=== PATIENT | male | born 1940 | race Caucasian/White ===

== ENCOUNTER 2017-06-07 21:16 | Inpatient (IN) | payer MEDICARE, OTHER ==
[~2017-06-07] VITALS: Ht 175.3 cm; Wt 81.8 kg
--- NOTE | 2017-06-07 21:33 | PHYS DOC ---
Past History Past Medical History: CAD, Cancer, Dementia, GERD, Hypertension, Seizure, Vascular Disease, Other Past Surgical History: Pacemaker Smoking: Non-smoker Alcohol Use: None Drug Use: None Adult General Chief Complaint Chief Complaint: expressed suicidal ideation and homicidal ideation HPI HPI Patient is a pleasant 76-year-old male coming to our facility for senior behavioral health psychiatric evaluation. Apparently sometime earlier today he called the son stating he wanted to kill himself and everyone on the unit. He had a plan at that time some was very concerned is going to kill everyone with a knife. The symptoms began to become acutely worse last night. Patient has history dementia, bipolar disorder, epilepsy, history of sleep apnea, hypertension, heart disease, pacemaker placement, peripheral vascular disease, reflux, constipation, history of bladder cancer with reconstruction, who is presently on Seroquel and Depakote. Patient denies any complains of chest pain, abdominal pain, headache, hearing voices, hearing visual auditory hallucinations , changes in medications, or other symptoms. Patient is resting quietly answer questions without issue. Review of Systems Review of Systems Constitutional: Denies fever or chills [] Eyes: Denies change in visual acuity, redness, or eye pain [] HENT: Denies nasal congestion or sore throat [] Respiratory: Denies cough or shortness of breath [] Cardiovascular: No additional information not addressed in HPI [] GI: Denies abdominal pain, nausea, vomiting, bloody stools or diarrhea [] : Denies dysuria or hematuria [] Musculoskeletal: Denies back pain or joint pain [] Integument: Denies rash or skin lesions [] Neurologic: Denies headache, focal weakness or sensory changes [] Endocrine: Denies polyuria or polydipsia [] Physical Exam Physical Exam Constitutional: Well developed, well nourished, no acute distress, non-toxic appearance. [] HENT: Normocephalic, atraumatic, bilateral external ears normal, dry mucous membranes, no oral exudates, nose normal. [] Eyes: PERRLA, EOMI, conjunctiva normal, no discharge. Noted arcus senilis [] Neck: Normal range of motion, no tenderness, supple, no stridor. [] Cardiovascular:Heart rate regular rhythm, no murmur [] Lungs & Thorax: Bilateral breath sounds clear to auscultation [] Abdomen: Bowel sounds normal, soft, no tenderness, no masses, no pulsatile masses. [] Skin: Warm, dry, no erythema, no rash. [] Back: No tenderness, no CVA tenderness. [] Extremities: No tenderness, no cyanosis, no clubbing, ROM intact, no edema. [] Neurologic: Alert and oriented X 3, normal motor function, normal sensory function, no focal deficits noted. [] Psychologic patient is very compliant with questions, will follow instructions without issue denies any auditory or visual hallucinations. Current Patient Data Lab Results Laboratory Tests Test 06/07/17 21:33 06/07/17 21:53 Urine Collection Type Unknown Urine Color Yellow Urine Clarity Cloudy Urine pH 7.0 Urine Specific Martha 1.010 Urine Protein Neg (NEG-TRACE) Urine Glucose (UA) Neg mg/dL (NEG) Urine Ketones (Stick) Neg mg/dL (NEG) Urine Blood Small (NEG) Urine Nitrite Neg (NEG) Urine Bilirubin Neg (NEG) Urine Urobilinogen Dipstick 0.2 mg/dL (0.2 mg/dL) Urine Leukocyte Esterase Large (NEG) Urine RBC 3-5 /HPF (0-2) Urine WBC >40 /HPF (0-4) Urine Squamous Epithelial Cells None /LPF Urine Bacteria 0 /HPF (0-FEW) White Blood Count 8.8 x10^3/uL (4.0-11.0) Red Blood Count 4.62 x10^6/uL (4.30-5.70) Hemoglobin 15.3 g/dL (13.0-17.5) Hematocrit 44.5 % (39.0-53.0) Mean Corpuscular Volume 96 fL (79-100) Mean Corpuscular Hemoglobin 33 pg (25-35) Mean Corpuscular Hemoglobin Concent 34 g/dL (31-37) Red Cell Distribution Width 14.2 % (11.5-14.5) Platelet Count 79 x10^3/uL (140-400) L Neutrophils (%) (Auto) 62 % (31-73) Lymphocytes (%) (Auto) 26 % (24-48) Monocytes (%) (Auto) 9 % (0-9) Eosinophils (%) (Auto) 3 % (0-3) Basophils (%) (Auto) 1 % (0-3) Neutrophils # (Auto) 5.4 x10^3uL (1.8-7.7) Lymphocytes # (Auto) 2.3 x10^3/uL (1.0-4.8) Monocytes # (Auto) 0.8 x10^3/uL (0.0-1.1) Eosinophils # (Auto) 0.3 x10^3/uL (0.0-0.7) Basophils # (Auto) 0.0 x10^3/uL (0.0-0.2) Sodium Level 139 mmol/L (136-145) Potassium Level 4.9 mmol/L (3.5-5.1) Chloride Level 109 mmol/L (98-107) H Carbon Dioxide Level 18 mmol/L (21-32) L Anion Gap 12 (6-14) Blood Urea Nitrogen 22 mg/dL (8-26) Creatinine 1.3 mg/dL (0.7-1.3) Estimated GFR (Cockcroft-Gault) 53.8 BUN/Creatinine Ratio 17 (6-20) Glucose Level 79 mg/dL (70-99) Calcium Level 8.6 mg/dL (8.5-10.1) Magnesium Level 1.7 mg/dL (1.8-2.4) L Total Bilirubin 0.5 mg/dL (0.2-1.0) Aspartate Amino Transferase (AST) 18 U/L (15-37) Alanine Aminotransferase (ALT) 19 U/L (16-63) Alkaline Phosphatase 34 U/L (46-116) L Troponin I Quantitative < 0.017 ng/mL (0-0.055) Total Protein 6.4 g/dL (6.4-8.2) Albumin 3.5 g/dL (3.4-5.0) Albumin/Globulin Ratio 1.2 (1.0-1.7) EKG EKG []Patient's EKG timed 9:29 PM read by me demonstrate a heart rate of 67 which is normal sinus rhythm patient is a irritable 138 which is normal patient's QRS width is 74 which is normal patient's QTc is 447 which is normal patient has an occasional PVC there is some T-wave inversions in the lateral leads but no ST segment changes consistent with acute cardiac ischemia. Radiology/Procedures Radiology/Procedures [] Course & Med Decision Making Course & Med Decision Making Pertinent Labs and Imaging studies reviewed. (See chart for details) as patient presents for a Screening for geriatric psychiatry. He has had no complaints, no outbursts of emotion or activity that been deemed competent to himself or anybody else. The stated complaint early was very concerning no ill be admitted to the hospital. It was noted the patient has urinalysis that demonstrates white blood cells, leuk esterase and bacteria consistent with UTI. He is receiving. Treatment with ciprofloxacin here in the emergency department. He does not demonstrate any signs of ischemia on EKG he has a negative troponin is resting quietly comfortable. He is been admitted to psychiatric service[] Dragon Disclaimer Dragon Disclaimer This chart was dictated in whole or in part using Voice Recognition software in a busy, high-work load, and often noisy Emergency Department environment. It may contain unintended and wholly unrecognized errors or omissions. Departure Departure: Impression: Primary Impression: Acute adjustment disorder Additional Impressions: UTI (urinary tract infection) Suicidal ideation Disposition: ADMITTED INPATIENT Condition: GUARDED Problem Qualifiers CHRIS ELLIS MD Jun 07, 2017 21:33
--- NOTE | 2017-06-07 21:34 | EKG ---
[address] [address] Test Date: 2017-06-07 Test Time: 21:29:30 Pat Name: CHRIS KOWALSKI Department: Room: Gender: M Pulp Screen Operator: NOREEN : 1940 Requested By: CHRIS ELLIS Order Number: [id number] Reading MD: Pancho Zepeda Measurements Intervals [place] Rate: 67 P: 43 NV: 138 QRS: 26 QRSD: 74 T: 137 QT: 420 QTc: 447 Interpretive Statements SINUS ARRHYTHMIA VENTRICULAR PREMATURE COMPLEX(ES) NON-SPECIFIC ST/T CHANGES Electronically Signed On 06-10-2017 13:10:55 CDT by Pancho Zepeda
[2017-06-07 22:29] LABS: BASO % 1 % (0-3); EOS # 0.3 x10^3/uL (0.0-0.7); EOS % 3 % (0-3); HEMATOCRIT 44.5 % (39.0-53.0); HEMOGLOBIN 15.3 g/dL (13.0-17.5); LYMPH # 2.3 x10^3/uL (1.0-4.8); LYMPH % 26 % (24-48); MEAN CORPUSCULAR HEMOGLOBIN 33 pg (25-35); MEAN CORPUSCULAR HGB CONC 34 g/dL (31-37); MEAN CORPUSCULAR VOLUME 96 fL (79-100); MONO # 0.8 x10^3/uL (0.0-1.1); MONO % 9 % (0-9); NEUT # 5.4 x10^3uL (1.8-7.7); NEUT % 62 % (31-73); PLATELET COUNT 79 x10^3/uL (140-400); RED BLOOD COUNT 4.62 x10^6/uL (4.30-5.70); RED CELL DISTRIBUTION WIDTH 14.2 % (11.5-14.5); WHITE BLOOD COUNT 8.8 x10^3/uL (4.0-11.0)
[2017-06-07 22:35] LABS: ALBUMIN 3.5 g/dL (3.4-5.0); ALBUMIN/GLOBULIN RATIO 1.2 (1.0-1.7); CALCIUM 8.6 mg/dL (8.5-10.1); CREATININE 1.3 mg/dL (0.7-1.3); GFR 53.8; MAGNESIUM 1.7 mg/dL (1.8-2.4); POTASSIUM 4.9 mmol/L (3.5-5.1); TOTAL BILIRUBIN 0.5 mg/dL (0.2-1.0); TOTAL PROTEIN 6.4 g/dL (6.4-8.2)
[2017-06-07 22:44] LABS: BILIRUBIN,URINE NEG (NEG); CLARITY,URINE CLOUDY; COLOR,URINE YELLOW; GLUCOSE,URINE NEG (NEG); NITRITE,URINE NEG (NEG); UROBILINOGEN,URINE 0.2 mg/dL (0.2 mg/dL)
[2017-06-07 22:45] LABS: BACTERIA,URINE 0 /HPF (0-FEW); WBC,URINE >40 /HPF (0-4)
[2017-06-07] MEDS ORDERED: CIPROFLOXACIN HCL 500 MG TABLET PO ONE (23:30)
[2017-06-08] MEDS ORDERED: CARV3.12 PO (00:04)
[2017-06-08] MEDS ORDERED: QUET25TA5 PO (00:04)
[2017-06-08] MEDS ORDERED: METF10002 PO (00:04)
[2017-06-08] MEDS ORDERED: QUET50TA5 PO (00:04)
[2017-06-08] MEDS ORDERED: FAMO20TA5 PO (00:04)
[2017-06-08] MEDS ORDERED: DIVA500T4 PO (00:04)
[2017-06-08] MEDS ORDERED: FOLI1TAB16 PO (00:04)
[2017-06-08] MEDS ORDERED: LISI2.5T PO (00:04)
[2017-06-08] MEDS ORDERED: ATOR20TA58 PO (00:04)
[2017-06-08] MEDS ORDERED: GLIP5TAB10 PO (00:04)
[2017-06-08] MEDS ORDERED: ACET500T68 PO (00:04)
[2017-06-08] MEDS ORDERED: ASPI81TA50 PO (00:04)
[2017-06-08] MEDS ORDERED: CLOP75TA57 PO (00:04)
[2017-06-08] MEDS ORDERED: Influenza vaccine per PROTOCOL. MC ONE (00:15)
[2017-06-08] MEDS ORDERED: MAG HYDROX/AL HYDROX/SIMETH 30 ML ORAL.SUSP PO PRN (00:15)
[2017-06-08] MEDS ORDERED: MAGNESIUM HYDROXIDE 2,400 MG/30 ML ORAL.SUSP. PO PRN (00:15)
[2017-06-08] MEDS ORDERED: FAMOTIDINE 20 MG TABLET PO PRN (00:15)
[2017-06-08] MEDS ORDERED: METHYL SALICYLATE/MENTHOL TOPICAL OINTMENT 29GM TUBE. TP PRN (00:15)
[2017-06-08] MEDS ORDERED: ACETAMINOPHEN 325 MG TABLET PO PRN (00:15)
[2017-06-08 02:00] VITALS: BP 128/75
[2017-06-08 04:10] LABS: VAL ACID 67 mcg/mL (50-100)
[2017-06-08 06:03] VITALS: BP 93/56
[2017-06-08] MEDS: CARVEDILOL 3.125 MG TABLET PO SCH ×2 (08:00→17:38)
[2017-06-08] MEDS: LISINOPRIL 2.5 MG TABLET PO SCH (08:56)
[2017-06-08] MEDS: QUEtiapine 25 MG TABLET. PO SCH (08:56)
[2017-06-08] MEDS: ASPIRIN ENTERIC COATED 81 MG TABLET.DR. PO SCH (08:56)
[2017-06-08] MEDS: glipiZIDE 5 MG TABLET PO SCH (08:56)
[2017-06-08] MEDS: ACETAMINOPHEN 500 MG TABLET PO SCH ×3 (08:56→20:16)
[2017-06-08] MEDS: CLOPIDOGREL BISULFATE 75 MG TABLET PO SCH (08:56)
[2017-06-08] MEDS: metFORMIN 500 MG TABLET PO SCH ×2 (08:57→17:37)
[2017-06-08] MEDS: DIVALPROEX ER 500 MG TAB.ER.24H PO SCH (08:57)
[2017-06-08] MEDS: FOLIC ACID 1 MG TABLET PO SCH (08:58)
[2017-06-08] MEDS ORDERED: FLU VACC QS2017-18 (36MOS+)/PF 0.5 ML SYRINGE. VAX IM ONE (09:00)
[2017-06-08 11:37] LABS: THYROID STIM HORMONE (TSH) 2.804 uIU/mL (0.358-3.740)
[2017-06-08 13:09] LABS: T3 TOTAL 67 ng/dL (71-180)
[2017-06-08 15:38] VITALS: BP 137/69
[2017-06-08] MEDS: QUEtiapine 50 MG TABLET. PO SCH (20:19)
[2017-06-08] MEDS: ATORVASTATIN CALCIUM 20 MG TABLET PO SCH (20:19)
[2017-06-08] MEDS: CLOTRIMAZOLE 1% TOPICAL CREAM 30GM TUBE. TP SCH ×2 (20:21→20:26)
--- NOTE | 2017-06-08 22:18 | PDOC ---
Exam Jame Demential Exam: Jame Note: Please also refer to the separate dictated note~for this date of service dictated separately.~Patient seen individually. Discussed the patient with Nursing staff reviewed the chart.~Reviewed interim history and current functioning. Reviewed vital signs,~Labs/ Radiology~and current medications noted below. Continue current treatment with the changes noted in the dictated addendum note Assessment: Vital Signs: Vital Signs Date Time Temp Pulse Resp B/P (MAP) Pulse Ox O2 Delivery O2 Flow Rate FiO2 06/08/17 17:38 64 137/69 06/08/17 15:38 97.2 16 92 06/07/17 23:18 Room Air I&O Intake and Output 06/09/17 07:00 Intake Total 1200 ml Balance 1200 ml Intake Oral 1200 ml Labs: Laboratory Tests Test 06/08/17 03:00 Triglycerides Level 229 mg/dL (0-150) H Cholesterol Level 97 mg/dL (0-200) LDL Cholesterol, Calculated 24 mg/dL (0-100) VLDL Cholesterol, Calculated 45 mg/dL (0-40) H Non-HDL Cholesterol Calculated 69 mg/dL (0-129) HDL Cholesterol 28 mg/dL (40-60) L Cholesterol/HDL Ratio 3.0 Thyroid Stimulating Hormone (TSH) 2.804 uIU/mL (0.358-3.740) Thyroxine (T4) 4.0 ug/dL (4.5-12.0) L Total Triiodothyronine (TT3) 67 ng/dL (71-180) L Valproic Acid Level 67 mcg/mL (50-100) Valproic Acid Last Dose Date 06/07/17 Valproic Acid Last Dose Time 0900 RPR Titer Additional Testing Pending Current Medications: Meds: Current Medications Ciprofloxacin (Cipro) 500 mg 1X ONCE PO Last administered on 06/07/17t 23:22; Start 06/07/17 at 23:30; Stop 06/07/17 at 23:31; Status DC Info (FLU VACCINE per PROTOCOL) 1 ea 1X ONCE MC ; Start 06/08/17 at 00:15; Stop 06/08/17 at 00:16; Status UNV Acetaminophen (Tylenol) 650 mg PRN Q6HRS PRN PO PAIN / TEMP; Start 06/08/17 at 00:15 Multi-Ingredient Ointment (Analgesic [place]) 1 angelika PRN QID PRN TP MUSCLE PAIN; Start 06/08/17 at 00:15 Al Hydroxide/Mg Hydroxide (Mylanta Plus Xs) 15 ml PRN AFTMEALHC PRN PO DYSPEPSIA; Start 06/08/17 at 00:15 Magnesium Hydroxide (Milk Of Magnesia) 2,400 mg PRN QHS PRN PO CONSTIPATION; Start 06/08/17 at 00:15 Divalproex Sodium (Depakote Er) 1,500 mg DAILY PO Last administered on 08:57; Start 06/08/17 at 09:00 Quetiapine Fumarate (SEROquel) 25 mg DAILY PO Last administered on 06/08/17 08 :56; Start 06/08/17 at 09:00 Quetiapine Fumarate (SEROquel) 50 mg QHS PO Last administered on 06/08/17 20: 19; Start 06/08/17 at 21:00 Acetaminophen (Tylenol) 500 mg TID PO Last administered on 06/08/17 20:16; Start 06/08/17 at 09:00 Aspirin (Aspirin Enteric Coated) 81 mg DAILY PO Last administered on 06/08/17 08:56; Start 06/08/17 at 09:00 Atorvastatin Calcium (Lipitor) 20 mg QHS PO Last administered on 06/08/17 20: 19; Start 06/08/17 at 21:00 Carvedilol (Coreg) 3.125 mg BIDWMEALS PO Last administered on 06/08/17 17:38; Start 06/08/17 at 08:00 Clopidogrel Bisulfate (Plavix) 75 mg DAILY PO Last administered on 06/08/17 08 :56; Start 06/08/17 at 09:00 Famotidine (Pepcid) 20 mg PRN DAILY PRN PO GERD; Start 06/08/17 at 00:15 Folic Acid (Folic Acid) 1 mg DAILY PO Last administered on 06/08/17 08:58; Start 06/08/17 at 09:00 Glipizide (Glucotrol) 5 mg DAILYWBKFT PO Last administered on 06/08/17 08:56; Start 06/08/17 at 08:00 Lisinopril (Prinivil) 2.5 mg DAILY PO ; Start 06/08/17 at 09:00 Metformin HCl (Glucophage) 1,000 mg BIDWMEALS PO Last administered on 17:37; Start 06/08/17 at 08:00 Influenza Virus Vaccine Quadrival (Fluarix Quad 0972-1460 Syringe) 0.5 ml ONCE ONCE VAX IM Last administered on 06/08/17 14:04; Start 06/08/17 at 09:00; Stop 06/08/17 at 09:01; Status DC Clotrimazole (Lotrimin) 1 angelika BID TP ; Start 06/08/17 at 21:00 Active Scripts Active Reported Famotidine 20 Mg Tablet 20 Mg PO PRN DAILY PRN Seroquel (Quetiapine Fumarate) 50 Mg Tablet 50 Mg PO QHS Atorvastatin Calcium 20 Mg Tablet 20 Mg PO QHS Depakote Er (Divalproex Sodium) 500 Mg Tab.er.24h 1,500 Mg PO DAILY Metformin Hcl 1,000 Mg Tablet 1,000 Mg PO BIDWMEALS Plavix (Clopidogrel Bisulfate) 75 Mg Tablet 75 Mg PO DAILY Seroquel (Quetiapine Fumarate) 25 Mg Tablet 25 Mg PO DAILY Lisinopril 2.5 Mg Tablet 2.5 Mg PO DAILY Glipizide 5 Mg Tablet 5 Mg PO DAILY Folic Acid 1 Mg Tablet 1 Mg PO DAILY Coreg (Carvedilol) 3.125 Mg Tablet 3.125 Mg PO BIDWMEALS Aspir-Low (Aspirin) 81 Mg Tablet.dr 81 Mg PO DAILY Acetaminophen 500 Mg Tablet 500 Mg PO TID Diagnosis: Problems: (1) Bipolar affective, mixed, sev w/ psych (2) Anxiety disorder (3) 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
--- NOTE | 2017-06-08 23:46 | HP ---
ADMIT DATE: 06/08/2017 PSYCHIATRIC ADMISSION HISTORY AND EVALUATION IDENTIFYING DATA: The patient is a 76-year-old male referred to us from [facility] by Dr. Maria G Kemp, his primary care physician, Dr. Encinas, psychiatrist. After the patient reportedly called his son and told him he wanted to kill himself and everyone on the unit. Reportedly, he had no plan. At the time son was concerned that the patient had made statements that he was going to kill everyone with a knife. The patient reportedly has a prior diagnosis of vascular dementia, bipolar disorder, seizure disorder and appeared increasingly psychotic, depressed, failed outpatient psychiatric interventions with Dr. Encinas resulting in this referral. CHIEF COMPLAINT: "I have been here 2 or 3 days. I am okay. No, I don't want to hurt myself or anyone." HISTORY OF PRESENT ILLNESS: The patient has a history of frontotemporal dementia and history of bipolar disorder. Additionally, he has a history of vascular dementia. Also, has a history of a TBI in 2010. Over the last couple of weeks, the patient has been increasingly erratic, irritable with mood lability, somewhat disinhibited depressed. He has had sleep and appetite changes, made the above vague tests to hurt himself and others, but no plans or intent or attempt. He does have a history of mood swings and worsening memory deficits. PAST PSYCHIATRIC HISTORY: As noted above. PAST MEDICAL HISTORY: History of TBI 2010, vascular dementia, pacemaker in place, but has not been functioning over the past 1 year according to the son. History of seizure disorder, hypertension, heart disease, history of CA bladder, bladder reconstruction from colon, PVD, GERD, chronic constipation, sleep apnea, but refuses CPAP. Diet is regular, takes his medications whole. Ambulates ad filiberto. UA was positive in the ER. Cipro was given. CODE STATUS: DNR. ALLERGIES: HYDROMORPHONE, CEPHALEXIN. CURRENT PSYCHOTROPICS: Depakote 1500 mg p.o. daily, Seroquel 25 mg a.m. and 50 mg p.m., Valproic acid level therapeutic at 67. FAMILY HISTORY: Noncontributory. SOCIAL HISTORY: No alcohol, drug abuse, physical, sexual or elder abuse history is noted. He is not known to be a perpetrator. Reaction to hospitalization, the patient is accepting of it. STRENGTHS: The patient has a supportive son and the patient is accepting of hospitalization. MENTAL STATUS EXAM: The patient was seen individually in his room the evening of 06/08/2017. He is oriented to himself and somewhat vaguely to situation. Speech has some latency, coherent. Abstraction fair, computation impaired, language function intact, attention span short. Mood and affect, somewhat anxious. Insight somewhat limited. Judgment intact to standard questioning. Attention span short. Language function intact. Memory is impaired. I have reviewed detailed information left with the patient's son about this history, family history. The patient is noted to be known for his humor and quirky personality, incredible creativity, big idea dreams. REACTION TO HOSPITALIZATION: The patient accepting of it. ASSETS: The patient has a vibrant personality and significant support from his son. Again he denied current active suicidal or homicidal ideation. IMPRESSION: Major neurocognitive disorder, frontotemporal type with depression, delusion, behavioral disturbance, anxiety disorder, unspecified; bipolar 1 disorder, mixed with psychotic features; impulse control disorder, unspecified. PLAN: Admit to the geropsychiatry unit at [facility]. Request Dr. Hinkle, Dr. Lou to follow the patient from a medical standpoint. I will see the patient daily individually. Continue the patient on his current dosage of Depakote, increase Seroquel from 25 mg a.m. and 50 mg p.m. to 25 mg a.m. and noon, 75 mg p.m. Consider adding an antidepressant but I will assess him over the next day or two and then decide. MAN oKko GARCIA MD DR: MARGIE/nikolay JOB#: [id number] / [id number]
[2017-06-09 05:38] VITALS: BP 157/78
[2017-06-09] MEDS: DIVALPROEX ER 500 MG TAB.ER.24H PO SCH (07:23)
[2017-06-09] MEDS: ASPIRIN ENTERIC COATED 81 MG TABLET.DR. PO SCH (07:23)
[2017-06-09] MEDS: ACETAMINOPHEN 500 MG TABLET PO SCH ×3 (07:23→20:30)
[2017-06-09] MEDS: glipiZIDE 5 MG TABLET PO SCH (07:23)
[2017-06-09] MEDS: CLOPIDOGREL BISULFATE 75 MG TABLET PO SCH (07:23)
[2017-06-09] MEDS: FOLIC ACID 1 MG TABLET PO SCH (07:23)
[2017-06-09] MEDS: LISINOPRIL 2.5 MG TABLET PO SCH (07:24)
[2017-06-09] MEDS: metFORMIN 500 MG TABLET PO SCH ×2 (07:24→17:58)
[2017-06-09] MEDS: QUEtiapine 25 MG TABLET. PO SCH (07:24)
[2017-06-09] MEDS: CARVEDILOL 3.125 MG TABLET PO SCH ×2 (07:24→17:58)
[2017-06-09] MEDS: CLOTRIMAZOLE 1% TOPICAL CREAM 30GM TUBE. TP SCH ×3 (07:25→21:00)
--- NOTE | 2017-06-09 08:03 | CONS ---
DATE OF CONSULTATION: 06/08/2017 REASON FOR CONSULTATION: Medical management. HISTORY OF PRESENT ILLNESS: The patient is a 76-year-old male patient, a resident at [facility], who was admitted to [facility] on account of wanting to kill himself and everyone on the unit has no plans at this time. Son was concerned as his father stated that he is going to kill everybody with a knife. The patient was admitted to this unit for inpatient psychiatric stabilization. He has a background dementia with bipolar disorder. When I saw him, he denied any complaint. PAST MEDICAL HISTORY: Significant for hypertension, hyperlipidemia, heart disease, permanent pacemaker placement, peripheral vascular disease, gastroesophageal reflux disease, chronic constipation, bladder cancer, status post cystectomy and bladder reconstruction. He is also known to have epilepsy. His pacemaker is not functioning for the last 20 years and apparently has a history of traumatic brain injury in 2010, with resultant frontotemporal damage. ALLERGIES: He is allergic to CEPHALEXIN and HYDROMORPHONE. MEDICATIONS: He is currently on the following medications: Acetaminophen 500 mg 3 times a day, aspirin 81 mg once a day, atorvastatin calcium 20 mg at bedtime, carvedilol 3.25 mg twice a day, Plavix 75 mg daily, Depakote 1500 mg p.o. daily, famotidine 20 mg daily, folic acid 1 mg once a day, glipizide 5 mg daily, lisinopril 2.5 mg once a day, metformin 1000 mg twice a day with meals, Seroquel 25 mg daily, Seroquel 50 mg at bedtime. REVIEW OF SYSTEMS: As per history of present illness. PHYSICAL EXAMINATION GENERAL: When I examined him, he was sitting on the edge of the bed comfortably in no apparent respiratory distress. He was pale, but no jaundiced, cyanosis, or thyromegaly. No jugular venous distension. No lower limb edema. VITAL SIGNS: His heart rate was 62, blood pressure was 93/56, temperature was 97.4, respiratory rate was 18, and oxygen saturation was 93% on room air. HEAD, EYES, EARS, NOSE, AND THROAT: Showed normocephalic, atraumatic. NECK: Supple. HEART: Showed normal first and second heart sounds with no gallop, rub or murmur. CHEST: Clear to auscultation. No crepitation or rhonchi. ABDOMEN: Distended, soft, and nontender. NEUROLOGIC: He was awake, alert, but confused. All his cranial nerves intact. EXTREMITIES: He moves all extremities without difficulty. He ambulates without assistance or assistive devices. He has marked bilateral venous stasis with markedly hyperpigmented skin on both legs. LABORATORY DATA: His lab work showed that his white cell count was 8800, hemoglobin 15, hematocrit 44, MCV 96, and platelet count of 79,000. His chemistry showed that his serum sodium was 139, potassium 4.9, chloride 109, bicarbonate 18, anion gap of 12, BUN 22, creatinine 1.3, estimated GFR was 54 mL per minute. His glucose was 79, calcium was 8.6, magnesium 1.7. His serum iron was 51, TIBC was 310. Percent saturation was 16. His total bilirubin, AST, ALT, alkaline phosphatase were normal. His total protein was 6.4, albumin 3.5. His serum triglycerides were 229, total cholesterol was 97, LDL cholesterol was 24, VLDL was 45, and HDL cholesterol was 28, the ratio was 3. His TSH was 2.8; however total T4 is 4 and total T3 was 67. His urinalysis basically was yellow, cloudy with a pH of 7, specific gravity of 1.010. The urine was negative for protein, glucose, and ketones. There was small amount of blood, negative nitrites, and there was large amount of leukocyte esterase, 3-5 rbc's, more than 40 wbc's, and no bacteria. His urine toxicology showed that his valproic acid was 67 mcg/mL, which is within therapeutic range and his RPR was still pending. IMPRESSION: In summary, this is a 76-year-old male patient, a resident at [facility] in [place], who was admitted with as he called his son stating that he wanted to kill himself and everyone on the unit. He said that he is going to kill everybody in the unit with a knife, although there is no clear plan at that time. All these in a background of dementia, bipolar disorder, has multiple medical problems including hypertension, hyperlipidemia, peripheral vascular disease, heart disease, gastroesophageal reflux disease, bladder cancer, obstructive sleep apnea, and epilepsy. His vital signs and all his lab work seems to be within range. All in all, he seemed to be medically stable. I will definitely continue with all his current medication. I will follow all his lab work that are still pending and make any necessary recommendation. Thank you, Dr. Guzman, for allowing me to participate in the care of this patient. MIRANDA LENNON MD DR: ADAN/nikolay JOB#: [id number] / [id number]
[2017-06-09 15:55] VITALS: BP 137/83
--- NOTE | 2017-06-09 19:41 | PDOC ---
Exam Jame Demential Exam: Jame Note: Please also refer to the separate dictated note~for this date of service dictated separately.~Patient seen individually. Discussed the patient with Nursing staff reviewed the chart.~Reviewed interim history and current functioning. Reviewed vital signs,~Labs/ Radiology~and current medications noted below. Continue current treatment with the changes noted in the dictated addendum note Assessment: Vital Signs: Vital Signs Date Time Temp Pulse Resp B/P (MAP) Pulse Ox O2 Delivery O2 Flow Rate FiO2 06/09/17 17:58 59 137/83 06/09/17 15:55 97.8 20 99 06/07/17 23:18 Room Air I&O Intake and Output 06/10/17 07:00 Intake Total 1020 ml Balance 1020 ml Intake Oral 1020 ml Current Medications: Meds: Current Medications Ciprofloxacin (Cipro) 500 mg 1X ONCE PO Last administered on 06/07/17 23:22; Start 06/07/17 at 23:30; Stop 06/07/17 at 23:31; Status DC Info (FLU VACCINE per PROTOCOL) 1 ea 1X ONCE MC ; Start 06/08/17 at 00:15; Stop 06/08/17 at 00:16; Status UNV Acetaminophen (Tylenol) 650 mg PRN Q6HRS PRN PO PAIN / TEMP; Start 06/08/17 at 00:15 Multi-Ingredient Ointment (Analgesic [place]) 1 angelika PRN QID PRN TP MUSCLE PAIN; Start 06/08/17 at 00:15 Al Hydroxide/Mg Hydroxide (Mylanta Plus Xs) 15 ml PRN AFTMEALHC PRN PO DYSPEPSIA; Start 06/08/17 at 00:15 Magnesium Hydroxide (Milk Of Magnesia) 2,400 mg PRN QHS PRN PO CONSTIPATION; Start 06/08/17 at 00:15 Divalproex Sodium (Depakote Er) 1,500 mg DAILY PO Last administered on 07:23; Start 06/08/17 at 09:00 Quetiapine Fumarate (SEROquel) 25 mg DAILY PO Last administered on 06/09/17 07 :24; Start 06/08/17 at 09:00 Quetiapine Fumarate (SEROquel) 50 mg QHS PO Last administered on 06/08/17 20: 19; Start 06/08/17 at 21:00 Acetaminophen (Tylenol) 500 mg TID PO Last administered on 06/09/17 13:34; Start 06/08/17 at 09:00 Aspirin (Aspirin Enteric Coated) 81 mg DAILY PO Last administered on 06/09/17 07:23; Start 06/08/17 at 09:00 Atorvastatin Calcium (Lipitor) 20 mg QHS PO Last administered on 06/08/17 20: 19; Start 06/08/17 at 21:00 Carvedilol (Coreg) 3.125 mg BIDWMEALS PO Last administered on 06/09/17 17:58; Start 06/08/17 at 08:00 Clopidogrel Bisulfate (Plavix) 75 mg DAILY PO Last administered on 06/09/17 07 :23; Start 06/08/17 at 09:00 Famotidine (Pepcid) 20 mg PRN DAILY PRN PO GERD; Start 06/08/17 at 00:15 Folic Acid (Folic Acid) 1 mg DAILY PO Last administered on 06/09/17 07:23; Start 06/08/17 at 09:00 Glipizide (Glucotrol) 5 mg DAILYWBKFT PO Last administered on 06/09/17 07:23; Start 06/08/17 at 08:00 Lisinopril (Prinivil) 2.5 mg DAILY PO Last administered on 06/09/17 07:24; Start 06/08/17 at 09:00 Metformin HCl (Glucophage) 1,000 mg BIDWMEALS PO Last administered on 17:58; Start 06/08/17 at 08:00 Influenza Virus Vaccine Quadrival (Fluarix Quad 0208-0816 Syringe) 0.5 ml ONCE ONCE VAX IM Last administered on 06/08/17 14:04; Start 06/08/17 at 09:00; Stop 06/08/17 at 09:01; Status DC Clotrimazole (Lotrimin) 1 angelika BID TP Last administered on 06/09/17 07:25; Start 06/08/17 at 21:00 Active Scripts Active Reported Famotidine 20 Mg Tablet 20 Mg PO PRN DAILY PRN Seroquel (Quetiapine Fumarate) 50 Mg Tablet 50 Mg PO QHS Atorvastatin Calcium 20 Mg Tablet 20 Mg PO QHS Depakote Er (Divalproex Sodium) 500 Mg Tab.er.24h 1,500 Mg PO DAILY Metformin Hcl 1,000 Mg Tablet 1,000 Mg PO BIDWMEALS Plavix (Clopidogrel Bisulfate) 75 Mg Tablet 75 Mg PO DAILY Seroquel (Quetiapine Fumarate) 25 Mg Tablet 25 Mg PO DAILY Lisinopril 2.5 Mg Tablet 2.5 Mg PO DAILY Glipizide 5 Mg Tablet 5 Mg PO DAILY Folic Acid 1 Mg Tablet 1 Mg PO DAILY Coreg (Carvedilol) 3.125 Mg Tablet 3.125 Mg PO BIDWMEALS Aspir-Low (Aspirin) 81 Mg Tablet.dr 81 Mg PO DAILY Acetaminophen 500 Mg Tablet 500 Mg PO TID Diagnosis: Problems: (1) Anxiety disorder (2) Impulse control disorder (3) Bipolar affective, mixed, sev w/ psych (4) Dementia, vascular, with depression (5) Dementia, vascular, 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
[2017-06-09] MEDS: ATORVASTATIN CALCIUM 20 MG TABLET PO SCH (20:30)
[2017-06-09] MEDS: QUEtiapine 50 MG TABLET. PO SCH (20:30)
[2017-06-10 06:10] VITALS: BP 123/83
[2017-06-10] MEDS: CARVEDILOL 3.125 MG TABLET PO SCH ×2 (07:40→16:20)
[2017-06-10] MEDS: FOLIC ACID 1 MG TABLET PO SCH (07:41)
[2017-06-10] MEDS: LISINOPRIL 2.5 MG TABLET PO SCH (07:41)
[2017-06-10] MEDS: glipiZIDE 5 MG TABLET PO SCH (07:41)
[2017-06-10] MEDS: metFORMIN 500 MG TABLET PO SCH ×2 (07:41→16:20)
[2017-06-10] MEDS: ASPIRIN ENTERIC COATED 81 MG TABLET.DR. PO SCH (07:41)
[2017-06-10] MEDS: DIVALPROEX ER 500 MG TAB.ER.24H PO SCH (07:41)
[2017-06-10] MEDS: CLOPIDOGREL BISULFATE 75 MG TABLET PO SCH (07:41)
[2017-06-10] MEDS: ACETAMINOPHEN 500 MG TABLET PO SCH ×3 (07:42→20:24)
[2017-06-10] MEDS: QUEtiapine 25 MG TABLET. PO SCH (07:42)
[2017-06-10] MEDS: CLOTRIMAZOLE 1% TOPICAL CREAM 30GM TUBE. TP SCH ×2 (09:00→20:27)
[2017-06-10 16:14] VITALS: BP 119/77
--- NOTE | 2017-06-10 19:41 | PDOC ---
Exam Jame Demential Exam: Jame Note: Please also refer to the separate dictated note~for this date of service dictated separately.~Patient seen individually. Discussed the patient with Nursing staff reviewed the chart.~Reviewed interim history and current functioning. Reviewed vital signs,~Labs/ Radiology~and current medications noted below. Continue current treatment with the changes noted in the dictated addendum note Assessment: Vital Signs: Vital Signs Date Time Temp Pulse Resp B/P (MAP) Pulse Ox O2 Delivery O2 Flow Rate FiO2 06/10/17 16:20 68 119/77 06/10/17 16:14 97.2 18 96 06/07/17 23:18 Room Air I&O Intake and Output 06/11/17 07:00 Intake Total 840 ml Balance 840 ml Intake Oral 840 ml Current Medications: Meds: Current Medications Ciprofloxacin (Cipro) 500 mg 1X ONCE PO Last administered on 06/07/17 23:22; Start 06/07/17 at 23:30; Stop 06/07/17 at 23:31; Status DC Info (FLU VACCINE per PROTOCOL) 1 ea 1X ONCE MC ; Start 06/08/17 at 00:15; Stop 06/08/17 at 00:16; Status UNV Acetaminophen (Tylenol) 650 mg PRN Q6HRS PRN PO PAIN / TEMP; Start 06/08/17 at 00:15 Multi-Ingredient Ointment (Analgesic [place]) 1 angelika PRN QID PRN TP MUSCLE PAIN; Start 06/08/17 at 00:15 Al Hydroxide/Mg Hydroxide (Mylanta Plus Xs) 15 ml PRN AFTMEALHC PRN PO DYSPEPSIA; Start 06/08/17 at 00:15 Magnesium Hydroxide (Milk Of Magnesia) 2,400 mg PRN QHS PRN PO CONSTIPATION; Start 06/08/17 at 00:15 Divalproex Sodium (Depakote Er) 1,500 mg DAILY PO Last administered on 07:41; Start 06/08/17 at 09:00 Quetiapine Fumarate (SEROquel) 25 mg DAILY PO Last administered on 06/10/17 07 :42; Start 06/08/17 at 09:00 Quetiapine Fumarate (SEROquel) 50 mg QHS PO Last administered on 06/09/17 20: 30; Start 06/08/17 at 21:00 Acetaminophen (Tylenol) 500 mg TID PO Last administered on 06/10/17 13:33; Start 06/08/17 at 09:00 Aspirin (Aspirin Enteric Coated) 81 mg DAILY PO Last administered on 06/10/17 07:41; Start 06/08/17 at 09:00 Atorvastatin Calcium (Lipitor) 20 mg QHS PO Last administered on 06/09/17 20: 30; Start 06/08/17 at 21:00 Carvedilol (Coreg) 3.125 mg BIDWMEALS PO Last administered on 06/10/17 16:20; Start 06/08/17 at 08:00 Clopidogrel Bisulfate (Plavix) 75 mg DAILY PO Last administered on 06/10/17 07 :41; Start 06/08/17 at 09:00 Famotidine (Pepcid) 20 mg PRN DAILY PRN PO GERD; Start 06/08/17 at 00:15 Folic Acid (Folic Acid) 1 mg DAILY PO Last administered on 06/10/17 07:41; Start 06/08/17 at 09:00 Glipizide (Glucotrol) 5 mg DAILYWBKFT PO Last administered on 06/10/17 07:41; Start 06/08/17 at 08:00 Lisinopril (Prinivil) 2.5 mg DAILY PO Last administered on 06/10/17 07:41; Start 06/08/17 at 09:00 Metformin HCl (Glucophage) 1,000 mg BIDWMEALS PO Last administered on 16:20; Start 06/08/17 at 08:00 Influenza Virus Vaccine Quadrival (Fluarix Quad 0335-6716 Syringe) 0.5 ml ONCE ONCE VAX IM Last administered on 06/08/17 14:04; Start 06/08/17 at 09:00; Stop 06/08/17 at 09:01; Status DC Clotrimazole (Lotrimin) 1 angelika BID TP Last administered on 06/09/17 07:25; Start 06/08/17 at 21:00 Escitalopram Oxalate (Lexapro) 5 mg DAILY PO ; Start 06/11/17 at 09:00 Mirtazapine (Remeron) 7.5 mg QHS PO ; Start 06/10/17 at 21:00 Active Scripts Active Reported Famotidine 20 Mg Tablet 20 Mg PO PRN DAILY PRN Seroquel (Quetiapine Fumarate) 50 Mg Tablet 50 Mg PO QHS Atorvastatin Calcium 20 Mg Tablet 20 Mg PO QHS Depakote Er (Divalproex Sodium) 500 Mg Tab.er.24h 1,500 Mg PO DAILY Metformin Hcl 1,000 Mg Tablet 1,000 Mg PO BIDWMEALS Plavix (Clopidogrel Bisulfate) 75 Mg Tablet 75 Mg PO DAILY Seroquel (Quetiapine Fumarate) 25 Mg Tablet 25 Mg PO DAILY Lisinopril 2.5 Mg Tablet 2.5 Mg PO DAILY Glipizide 5 Mg Tablet 5 Mg PO DAILY Folic Acid 1 Mg Tablet 1 Mg PO DAILY Coreg (Carvedilol) 3.125 Mg Tablet 3.125 Mg PO BIDWMEALS Aspir-Low (Aspirin) 81 Mg Tablet.dr 81 Mg PO DAILY Acetaminophen 500 Mg Tablet 500 Mg PO TID Diagnosis: Problems: (1) Suicidal ideation (2) Acute adjustment disorder (3) Anxiety disorder (4) Impulse control disorder (5) Bipolar affective, mixed, sev w/ psych (6) Dementia, vascular, with depression (7) Dementia, vascular, with delusions (8) 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
[2017-06-10] MEDS: QUEtiapine 50 MG TABLET. PO SCH (20:24)
[2017-06-10] MEDS: ATORVASTATIN CALCIUM 20 MG TABLET PO SCH (20:24)
[2017-06-10] MEDS: MIRTAZAPINE 7.5 MG TABLET. PO SCH (20:27)
--- NOTE | 2017-06-11 04:57 | PN ---
DATE: 06/09/2017 PSYCHIATRIC PROGRESS NOTE This late entry 06/09/2017, covers elements not covered in my initial note of 06/09/2017. I met with the patient the evening of 06/09/2017. Per nursing report, the patient has been quite confused, withdrawn, spends much time in his room, oriented just to himself. Denies active suicidal or homicidal ideation as I met with him in his room. He has been otherwise calm, cooperative with medications and isolating. REVIEW OF SYSTEMS: No CV, , pulmonary, eye, ENT system symptoms on review, complained of feeling cold. He had a partial blanket on him, I helped cover him up completely and he was smiling, very appreciative. MENTAL STATUS EXAM: Oriented to himself. Insight, judgment, recent and remote memory, attention, concentration, fund of knowledge poor, consistent with his diagnosis mentioned in my initial note. PLAN: Continue current psychotropics mentioned in my initial note. Reviewed drug interactions, risk/benefit ratio favors no further change at this time. Valproic acid level therapeutic at 67. Starting 06/10/2017, we will add Lexapro 5 mg a day, may need to increase gradually. KAREN GARCIA MD DR: MARGIE/nikolay JOB#: [id number] / [id number]
[2017-06-11 05:55] VITALS: BP 109/74
[2017-06-11] MEDS: metFORMIN 500 MG TABLET PO SCH ×2 (08:59→17:10)
[2017-06-11] MEDS: FOLIC ACID 1 MG TABLET PO SCH (08:59)
[2017-06-11] MEDS: DIVALPROEX ER 500 MG TAB.ER.24H PO SCH (08:59)
[2017-06-11] MEDS: LISINOPRIL 2.5 MG TABLET PO SCH (09:00)
[2017-06-11] MEDS ORDERED: ESCITALOPRAM 20 MG TABLET. PO SCH (09:00)
[2017-06-11] MEDS: glipiZIDE 5 MG TABLET PO SCH (09:00)
[2017-06-11] MEDS: QUEtiapine 25 MG TABLET. PO SCH (09:00)
[2017-06-11] MEDS: CLOPIDOGREL BISULFATE 75 MG TABLET PO SCH (09:01)
[2017-06-11] MEDS: ASPIRIN ENTERIC COATED 81 MG TABLET.DR. PO SCH (09:01)
[2017-06-11] MEDS: ACETAMINOPHEN 500 MG TABLET PO SCH ×3 (09:01→19:33)
[2017-06-11] MEDS: CARVEDILOL 3.125 MG TABLET PO SCH ×2 (09:01→17:10)
[2017-06-11] MEDS: CLOTRIMAZOLE 1% TOPICAL CREAM 30GM TUBE. TP SCH ×2 (09:02→19:34)
[2017-06-11] MEDS: CHOLECALCIFEROL (VITAMIN D3) 50,000 UNIT CAPSULE PO SCH (09:02)
[2017-06-11 15:44] VITALS: BP_SYST 102; BP_SYST 135; BP_DIAS 66; BP_DIAS 68
[2017-06-11] MEDS: QUEtiapine 50 MG TABLET. PO SCH (19:33)
[2017-06-11] MEDS: MIRTAZAPINE 7.5 MG TABLET. PO SCH (19:33)
[2017-06-11] MEDS: ATORVASTATIN CALCIUM 20 MG TABLET PO SCH (19:33)
--- NOTE | 2017-06-11 19:37 | PDOC ---
Exam Jame Demential Exam: Jame Note: Please also refer to the separate dictated note~for this date of service dictated separately.~Patient seen individually. Discussed the patient with Nursing staff reviewed the chart.~Reviewed interim history and current functioning. Reviewed vital signs,~Labs/ Radiology~and current medications noted below. Continue current treatment with the changes noted in the dictated addendum note Assessment: Vital Signs: Vital Signs Date Time Temp Pulse Resp B/P (MAP) Pulse Ox O2 Delivery O2 Flow Rate FiO2 06/11/17 17:10 67 102/66 06/11/17 15:44 97.6 16 90 06/07/17 23:18 Room Air I&O Intake and Output 06/12/17 06:59 Intake Total 1020 ml Balance 1020 ml Intake Oral 1020 ml Current Medications: Meds: Current Medications Ciprofloxacin (Cipro) 500 mg 1X ONCE PO Last administered on 06/07/17 23:22; Start 06/07/17 at 23:30; Stop 06/07/17 at 23:31; Status DC Info (FLU VACCINE per PROTOCOL) 1 ea 1X ONCE MC ; Start 06/08/17 at 00:15; Stop 06/08/17 at 00:16; Status UNV Acetaminophen (Tylenol) 650 mg PRN Q6HRS PRN PO PAIN / TEMP; Start 06/08/17 at 00:15 Multi-Ingredient Ointment (Analgesic [place]) 1 angelika PRN QID PRN TP MUSCLE PAIN; Start 06/08/17 at 00:15 Al Hydroxide/Mg Hydroxide (Mylanta Plus Xs) 15 ml PRN AFTMEALHC PRN PO DYSPEPSIA; Start 06/08/17 at 00:15 Magnesium Hydroxide (Milk Of Magnesia) 2,400 mg PRN QHS PRN PO CONSTIPATION; Start 06/08/17 at 00:15 Divalproex Sodium (Depakote Er) 1,500 mg DAILY PO Last administered on 08:59; Start 06/08/17 at 09:00 Quetiapine Fumarate (SEROquel) 25 mg DAILY PO Last administered on 06/11/17 09 :00; Start 06/08/17 at 09:00 Quetiapine Fumarate (SEROquel) 50 mg QHS PO Last administered on 06/11/17 19: 33; Start 06/08/17 at 21:00 Acetaminophen (Tylenol) 500 mg TID PO Last administered on 06/11/17 19:33; Start 06/08/17 at 09:00 Aspirin (Aspirin Enteric Coated) 81 mg DAILY PO Last administered on 06/11/17 09:01; Start 06/08/17 at 09:00 Atorvastatin Calcium (Lipitor) 20 mg QHS PO Last administered on 06/11/17 19: 33; Start 06/08/17 at 21:00 Carvedilol (Coreg) 3.125 mg BIDWMEALS PO Last administered on 06/11/17 17:10; Start 06/08/17 at 08:00 Clopidogrel Bisulfate (Plavix) 75 mg DAILY PO Last administered on 06/11/17 09 :01; Start 06/08/17 at 09:00 Famotidine (Pepcid) 20 mg PRN DAILY PRN PO GERD; Start 06/08/17 at 00:15 Folic Acid (Folic Acid) 1 mg DAILY PO Last administered on 06/11/17 08:59; Start 06/08/17 at 09:00 Glipizide (Glucotrol) 5 mg DAILYWBKFT PO Last administered on 06/11/17 09:00; Start 06/08/17 at 08:00 Lisinopril (Prinivil) 2.5 mg DAILY PO Last administered on 06/11/17 09:00; Start 06/08/17 at 09:00 Metformin HCl (Glucophage) 1,000 mg BIDWMEALS PO Last administered on 17:10; Start 06/08/17 at 08:00 Influenza Virus Vaccine Quadrival (Fluarix Quad [id number] Syringe) 0.5 ml ONCE ONCE VAX IM Last administered on 06/08/17 14:04; Start 06/08/17 at 09:00; Stop 06/08/17 at 09:01; Status DC Clotrimazole (Lotrimin) 1 angelika BID TP Last administered on 06/11/17 19:34; Start 06/08/17 at 21:00 Escitalopram Oxalate (Lexapro) 5 mg DAILY PO Last administered on 06/11/17 09: 00; Start 06/11/17 at 09:00; Stop 06/11/17 at 18:23; Status DC Mirtazapine (Remeron) 7.5 mg QHS PO Last administered on 06/11/17 19:33; Start 06/10/17 at 21:00 Vitamin D (Vitamin D3) 50,000 unit WEEKLY PO Last administered on 06/11/17 09: 02; Start 06/11/17 at 09:00 Escitalopram Oxalate (Lexapro) 10 mg DAILY PO ; Start 06/12/17 at 09:00 Active Scripts Active Reported Famotidine 20 Mg Tablet 20 Mg PO PRN DAILY PRN Seroquel (Quetiapine Fumarate) 50 Mg Tablet 50 Mg PO QHS Atorvastatin Calcium 20 Mg Tablet 20 Mg PO QHS Depakote Er (Divalproex Sodium) 500 Mg Tab.er.24h 1,500 Mg PO DAILY Metformin Hcl 1,000 Mg Tablet 1,000 Mg PO BIDWMEALS Plavix (Clopidogrel Bisulfate) 75 Mg Tablet 75 Mg PO DAILY Seroquel (Quetiapine Fumarate) 25 Mg Tablet 25 Mg PO DAILY Lisinopril 2.5 Mg Tablet 2.5 Mg PO DAILY Glipizide 5 Mg Tablet 5 Mg PO DAILY Folic Acid 1 Mg Tablet 1 Mg PO DAILY Coreg (Carvedilol) 3.125 Mg Tablet 3.125 Mg PO BIDWMEALS Aspir-Low (Aspirin) 81 Mg Tablet.dr 81 Mg PO DAILY Acetaminophen 500 Mg Tablet 500 Mg PO TID Diagnosis: Problems: (1) Suicidal ideation (2) Acute adjustment disorder (3) Anxiety disorder (4) Impulse control disorder (5) Bipolar affective, mixed, sev w/ psych (6) Dementia, vascular, with depression (7) Dementia, vascular, with delusions (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
--- NOTE | 2017-06-12 03:41 | PN ---
DATE: 06/10/2017 PSYCHIATRIC PROGRESS NOTE This is a late entry 06/10/2017, covers elements not covered in my initial note of 06/10/2017. I met with the patient evening of 06/10/2017. He slept just 2 hours the previous evening. He has been withdrawn, confused, isolated, tearful at times. Valproic acid level is 67. REVIEW OF SYSTEMS: No CV, , pulmonary, eye, ENT system symptoms on review. Still admits to feeling cold, got him a warming blanket and he was appreciative of this. MENTAL STATUS EXAM: Oriented to himself. Insight, judgment, recent and remote memory, attention, concentration, fund of knowledge poor, consistent with his diagnosis mentioned in my initial note. PLAN: Start Remeron 7.5 mg p.o. at bedtime. Continue Lexapro 5 mg a day, may need to increase it in due course. Depakote is 1500 mg daily, level is therapeutic at 67, Seroquel 25 mg a.m., 50 p.m., may need to increase Lexapro in due course. Adjust further as clinically indicated. MAN Koko GARCIA MD DR: MARGIE/nikolay JOB#: [id number] / [id number]
[2017-06-12 05:27] VITALS: BP 116/64
[2017-06-12] MEDS: FOLIC ACID 1 MG TABLET PO SCH (09:20)
[2017-06-12] MEDS: ACETAMINOPHEN 500 MG TABLET PO SCH ×3 (09:20→19:49)
[2017-06-12] MEDS: metFORMIN 500 MG TABLET PO SCH ×2 (09:20→17:51)
[2017-06-12] MEDS: CLOPIDOGREL BISULFATE 75 MG TABLET PO SCH (09:21)
[2017-06-12] MEDS: LISINOPRIL 2.5 MG TABLET PO SCH (09:21)
[2017-06-12] MEDS: glipiZIDE 5 MG TABLET PO SCH (09:22)
[2017-06-12] MEDS: QUEtiapine 25 MG TABLET. PO SCH (09:22)
[2017-06-12] MEDS: ASPIRIN ENTERIC COATED 81 MG TABLET.DR. PO SCH (09:22)
[2017-06-12] MEDS: DIVALPROEX ER 500 MG TAB.ER.24H PO SCH (09:22)
[2017-06-12] MEDS: CARVEDILOL 3.125 MG TABLET PO SCH ×2 (09:22→17:51)
[2017-06-12] MEDS: ESCITALOPRAM 20 MG TABLET. PO SCH (09:25)
[2017-06-12] MEDS: CLOTRIMAZOLE 1% TOPICAL CREAM 30GM TUBE. TP SCH ×2 (09:25→19:49)
[2017-06-12] MEDS: NYSTATIN TOPICAL POWDER 15GM BOTTLE. TP SCH ×2 (14:49→19:49)
[2017-06-12 16:40] VITALS: BP 151/62
[2017-06-12] MEDS: ATORVASTATIN CALCIUM 20 MG TABLET PO SCH (19:49)
[2017-06-12] MEDS: MIRTAZAPINE 7.5 MG TABLET. PO SCH (19:49)
[2017-06-12] MEDS: QUEtiapine 50 MG TABLET. PO SCH (19:49)
--- NOTE | 2017-06-12 21:03 | PDOC ---
Exam Jame Demential Exam: Jame Note: Please also refer to the separate dictated note~for this date of service dictated separately.~Patient seen individually. Discussed the patient with Nursing staff reviewed the chart.~Reviewed interim history and current functioning. Reviewed vital signs,~Labs/ Radiology~and current medications noted below. Continue current treatment with the changes noted in the dictated addendum note Assessment: Vital Signs: Vital Signs Date Time Temp Pulse Resp B/P (MAP) Pulse Ox O2 Delivery O2 Flow Rate FiO2 06/12/17 17:51 111 151/62 06/12/17 16:40 97.2 22 98 06/12/17 05:27 Room Air I&O Intake and Output 06/13/17 07:00 Intake Total 960 ml Balance 960 ml Intake Oral 960 ml Current Medications: Meds: Current Medications Ciprofloxacin (Cipro) 500 mg 1X ONCE PO Last administered on 06/07/17 23:22; Start 06/07/17 at 23:30; Stop 06/07/17 at 23:31; Status DC Info (FLU VACCINE per PROTOCOL) 1 ea 1X ONCE MC ; Start 06/08/17 at 00:15; Stop 06/08/17 at 00:16; Status UNV Acetaminophen (Tylenol) 650 mg PRN Q6HRS PRN PO PAIN / TEMP; Start 06/08/17 at 00:15 Multi-Ingredient Ointment (Analgesic [place]) 1 angelika PRN QID PRN TP MUSCLE PAIN; Start 06/08/17 at 00:15 Al Hydroxide/Mg Hydroxide (Mylanta Plus Xs) 15 ml PRN AFTMEALHC PRN PO DYSPEPSIA; Start 06/08/17 at 00:15 Magnesium Hydroxide (Milk Of Magnesia) 2,400 mg PRN QHS PRN PO CONSTIPATION; Start 06/08/17 at 00:15 Divalproex Sodium (Depakote Er) 1,500 mg DAILY PO Last administered on 09:22; Start 06/08/17 at 09:00 Quetiapine Fumarate (SEROquel) 25 mg DAILY PO Last administered on 06/12/17 09 :22; Start 06/08/17 at 09:00 Quetiapine Fumarate (SEROquel) 50 mg QHS PO Last administered on 06/12/17 19: 49; Start 06/08/17 at 21:00 Acetaminophen (Tylenol) 500 mg TID PO Last administered on 06/12/17 19:49; Start 06/08/17 at 09:00 Aspirin (Aspirin Enteric Coated) 81 mg DAILY PO Last administered on 06/12/17 09:22; Start 06/08/17 at 09:00 Atorvastatin Calcium (Lipitor) 20 mg QHS PO Last administered on 06/12/17 19: 49; Start 06/08/17 at 21:00 Carvedilol (Coreg) 3.125 mg BIDWMEALS PO Last administered on 06/12/17 17:51; Start 06/08/17 at 08:00 Clopidogrel Bisulfate (Plavix) 75 mg DAILY PO Last administered on 06/12/17 09 :21; Start 06/08/17 at 09:00 Famotidine (Pepcid) 20 mg PRN DAILY PRN PO GERD; Start 06/08/17 at 00:15 Folic Acid (Folic Acid) 1 mg DAILY PO Last administered on 06/12/17 09:20; Start 06/08/17 at 09:00 Glipizide (Glucotrol) 5 mg DAILYWBKFT PO Last administered on 06/12/17 09:22; Start 06/08/17 at 08:00 Lisinopril (Prinivil) 2.5 mg DAILY PO Last administered on 06/12/17 09:21; Start 06/08/17 at 09:00 Metformin HCl (Glucophage) 1,000 mg BIDWMEALS PO Last administered on 17:51; Start 06/08/17 at 08:00 Influenza Virus Vaccine Quadrival (Fluarix Quad [id number] Syringe) 0.5 ml ONCE ONCE VAX IM Last administered on 06/08/17 14:04; Start 06/08/17 at 09:00; Stop 06/08/17 at 09:01; Status DC Clotrimazole (Lotrimin) 1 angelika BID TP Last administered on 06/12/17 19:49; Start 06/08/17 at 21:00 Escitalopram Oxalate (Lexapro) 5 mg DAILY PO Last administered on 06/11/17 09: 00; Start 06/11/17 at 09:00; Stop 06/11/17 at 18:23; Status DC Mirtazapine (Remeron) 7.5 mg QHS PO Last administered on 06/12/17 19:49; Start 06/10/17 at 21:00 Vitamin D (Vitamin D3) 50,000 unit WEEKLY PO Last administered on 06/11/17 09: 02; Start 06/11/17 at 09:00 Escitalopram Oxalate (Lexapro) 10 mg DAILY PO Last administered on 06/12/17 09 :25; Start 06/12/17 at 09:00 Nystatin (Nystop) 1 angelika BID TP Last administered on 06/12/17 19:49; Start at 13:00 Active Scripts Active Reported Famotidine 20 Mg Tablet 20 Mg PO PRN DAILY PRN Seroquel (Quetiapine Fumarate) 50 Mg Tablet 50 Mg PO QHS Atorvastatin Calcium 20 Mg Tablet 20 Mg PO QHS Depakote Er (Divalproex Sodium) 500 Mg Tab.er.24h 1,500 Mg PO DAILY Metformin Hcl 1,000 Mg Tablet 1,000 Mg PO BIDWMEALS Plavix (Clopidogrel Bisulfate) 75 Mg Tablet 75 Mg PO DAILY Seroquel (Quetiapine Fumarate) 25 Mg Tablet 25 Mg PO DAILY Lisinopril 2.5 Mg Tablet 2.5 Mg PO DAILY Glipizide 5 Mg Tablet 5 Mg PO DAILY Folic Acid 1 Mg Tablet 1 Mg PO DAILY Coreg (Carvedilol) 3.125 Mg Tablet 3.125 Mg PO BIDWMEALS Aspir-Low (Aspirin) 81 Mg Tablet.dr 81 Mg PO DAILY Acetaminophen 500 Mg Tablet 500 Mg PO TID Diagnosis: Problems: (1) Suicidal ideation (2) Acute adjustment disorder (3) Anxiety disorder (4) Impulse control disorder (5) Bipolar affective, mixed, sev w/ psych (6) Dementia, vascular, with depression (7) Dementia, vascular, with delusions (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
--- NOTE | 2017-06-13 01:05 | PN ---
DATE: 06/11/2017 This late entry for 06/11/2017 covers elements not covered in my initial note of 06/11/2017. SUBJECTIVE: I met with the patient in the evening of 06/11/2017. Per nursing report, the patient isolates in his room. He gets distressed with the excess noise of the other demented patients yelling on the unit. Frequently lying in bed. I met with him individually, he compliant with his medications and cares. He denies active suicidal ideation. REVIEW OF SYSTEMS: No CV, , pulmonary, eye, ENT system symptoms on review. MENTAL STATUS EXAMINATION: Oriented to himself. Insight, judgment, recent and remote memory, attention, concentration, fund of knowledge poor, consistent with his diagnosis. Verbal responses often monosyllabic with latency of response evident. No suicidal or homicidal ideation. LABORATORY DATA: Reviewed. IMPRESSION: Unchanged from initial note. PLAN: Increase Lexapro from 5 mg a day to 10 mg a day, starting 06/12/2017. Maintain Depakote, Seroquel along with Remeron at current dosage. Valproic acid level therapeutic at 67. Reviewed drug interactions, risk/benefit ratio favors no further change. KAREN GARCIA MD DR: MARGIE/nikolay JOB#: [id number] / [id number]
[2017-06-13 05:47] VITALS: BP 106/63
[2017-06-13] MEDS: FOLIC ACID 1 MG TABLET PO SCH (09:22)
[2017-06-13] MEDS: CARVEDILOL 3.125 MG TABLET PO SCH ×2 (09:23→17:00)
[2017-06-13] MEDS: LISINOPRIL 2.5 MG TABLET PO SCH (09:23)
[2017-06-13] MEDS: ACETAMINOPHEN 500 MG TABLET PO SCH ×3 (09:23→20:07)
[2017-06-13] MEDS: DIVALPROEX ER 500 MG TAB.ER.24H PO SCH (09:23)
[2017-06-13] MEDS: metFORMIN 500 MG TABLET PO SCH ×2 (09:24→17:25)
[2017-06-13] MEDS: ESCITALOPRAM 20 MG TABLET. PO SCH (09:24)
[2017-06-13] MEDS: CLOPIDOGREL BISULFATE 75 MG TABLET PO SCH (09:24)
[2017-06-13] MEDS: ASPIRIN ENTERIC COATED 81 MG TABLET.DR. PO SCH (09:25)
[2017-06-13] MEDS: glipiZIDE 5 MG TABLET PO SCH (09:25)
[2017-06-13] MEDS: QUEtiapine 25 MG TABLET. PO SCH (09:25)
[2017-06-13] MEDS: CLOTRIMAZOLE 1% TOPICAL CREAM 30GM TUBE. TP SCH ×2 (09:26→20:08)
[2017-06-13] MEDS: NYSTATIN TOPICAL POWDER 15GM BOTTLE. TP SCH ×2 (09:26→20:08)
[2017-06-13 16:20] VITALS: BP 111/66
[2017-06-13] MEDS: MIRTAZAPINE 7.5 MG TABLET. PO SCH (20:06)
[2017-06-13] MEDS: ATORVASTATIN CALCIUM 20 MG TABLET PO SCH (20:07)
[2017-06-13] MEDS: QUEtiapine 100 MG TABLET. PO SCH (20:08)
--- NOTE | 2017-06-13 21:01 | PDOC ---
Exam Jame Demential Exam: Jame Note: Please also refer to the separate dictated note~for this date of service dictated separately.~Patient seen individually. Discussed the patient with Nursing staff reviewed the chart.~Reviewed interim history and current functioning. Reviewed vital signs,~Labs/ Radiology~and current medications noted below. Continue current treatment with the changes noted in the dictated addendum note Assessment: Vital Signs: Vital Signs Date Time Temp Pulse Resp B/P (MAP) Pulse Ox O2 Delivery O2 Flow Rate FiO2 06/13/17 17:00 58 111/66 06/13/17 16:20 97.8 20 94 06/13/17 05:47 Room Air I&O Intake and Output 06/14/17 07:00 Intake Total 960 ml Balance 960 ml Intake Oral 960 ml Current Medications: Meds: Current Medications Ciprofloxacin (Cipro) 500 mg 1X ONCE PO Last administered on 06/07/17 23:22; Start 06/07/17 at 23:30; Stop 06/07/17 at 23:31; Status DC Info (FLU VACCINE per PROTOCOL) 1 ea 1X ONCE MC ; Start 06/08/17 at 00:15; Stop 06/08/17 at 00:16; Status UNV Acetaminophen (Tylenol) 650 mg PRN Q6HRS PRN PO PAIN / TEMP; Start 06/08/17 at 00:15 Multi-Ingredient Ointment (Analgesic [place]) 1 angelika PRN QID PRN TP MUSCLE PAIN; Start 06/08/17 at 00:15 Al Hydroxide/Mg Hydroxide (Mylanta Plus Xs) 15 ml PRN AFTMEALHC PRN PO DYSPEPSIA; Start 06/08/17 at 00:15 Magnesium Hydroxide (Milk Of Magnesia) 2,400 mg PRN QHS PRN PO CONSTIPATION; Start 06/08/17 at 00:15 Divalproex Sodium (Depakote Er) 1,500 mg DAILY PO Last administered on 09:23; Start 06/08/17 at 09:00 Quetiapine Fumarate (SEROquel) 25 mg DAILY PO Last administered on 06/13/17 09 :25; Start 06/08/17 at 09:00 Quetiapine Fumarate (SEROquel) 50 mg QHS PO Last administered on 06/12/17 19: 49; Start 06/08/17 at 21:00; Stop 06/13/17 at 10:16; Status DC Acetaminophen (Tylenol) 500 mg TID PO Last administered on 06/13/17 20:07; Start 06/08/17 at 09:00 Aspirin (Aspirin Enteric Coated) 81 mg DAILY PO Last administered on 06/13/17 09:25; Start 06/08/17 at 09:00 Atorvastatin Calcium (Lipitor) 20 mg QHS PO Last administered on 06/13/17 20: 07; Start 06/08/17 at 21:00 Carvedilol (Coreg) 3.125 mg BIDWMEALS PO Last administered on 06/13/17 09:23; Start 06/08/17 at 08:00 Clopidogrel Bisulfate (Plavix) 75 mg DAILY PO Last administered on 06/13/17 09 :24; Start 06/08/17 at 09:00 Famotidine (Pepcid) 20 mg PRN DAILY PRN PO GERD; Start 06/08/17 at 00:15 Folic Acid (Folic Acid) 1 mg DAILY PO Last administered on 06/13/17 09:22; Start 06/08/17 at 09:00 Glipizide (Glucotrol) 5 mg DAILYWBKFT PO Last administered on 06/13/17 09:25; Start 06/08/17 at 08:00 Lisinopril (Prinivil) 2.5 mg DAILY PO Last administered on 06/13/17 09:23; Start 06/08/17 at 09:00 Metformin HCl (Glucophage) 1,000 mg BIDWMEALS PO Last administered on 17:25; Start 06/08/17 at 08:00 Influenza Virus Vaccine Quadrival (Fluarix Quad [id number] Syringe) 0.5 ml ONCE ONCE VAX IM Last administered on 06/08/17 14:04; Start 06/08/17 at 09:00; Stop 06/08/17 at 09:01; Status DC Clotrimazole (Lotrimin) 1 angelika BID TP Last administered on 06/13/17 20:08; Start 06/08/17 at 21:00 Escitalopram Oxalate (Lexapro) 5 mg DAILY PO Last administered on 06/11/17 09: 00; Start 06/11/17 at 09:00; Stop 06/11/17 at 18:23; Status DC Mirtazapine (Remeron) 7.5 mg QHS PO Last administered on 06/13/17 20:06; Start 06/10/17 at 21:00 Vitamin D (Vitamin D3) 50,000 unit WEEKLY PO Last administered on 06/11/17 09: 02; Start 06/11/17 at 09:00 Escitalopram Oxalate (Lexapro) 10 mg DAILY PO Last administered on 06/13/17 09 :24; Start 06/12/17 at 09:00 Nystatin (Nystop) 1 angelika BID TP Last administered on 06/13/17 20:08; Start at 13:00 Quetiapine Fumarate (SEROquel) 100 mg HS PO Last administered on 06/13/17 20: 08; Start 06/13/17 at 21:00 Active Scripts Active Reported Famotidine 20 Mg Tablet 20 Mg PO PRN DAILY PRN Seroquel (Quetiapine Fumarate) 50 Mg Tablet 50 Mg PO QHS Atorvastatin Calcium 20 Mg Tablet 20 Mg PO QHS Depakote Er (Divalproex Sodium) 500 Mg Tab.er.24h 1,500 Mg PO DAILY Metformin Hcl 1,000 Mg Tablet 1,000 Mg PO BIDWMEALS Plavix (Clopidogrel Bisulfate) 75 Mg Tablet 75 Mg PO DAILY Seroquel (Quetiapine Fumarate) 25 Mg Tablet 25 Mg PO DAILY Lisinopril 2.5 Mg Tablet 2.5 Mg PO DAILY Glipizide 5 Mg Tablet 5 Mg PO DAILY Folic Acid 1 Mg Tablet 1 Mg PO DAILY Coreg (Carvedilol) 3.125 Mg Tablet 3.125 Mg PO BIDWMEALS Aspir-Low (Aspirin) 81 Mg Tablet.dr 81 Mg PO DAILY Acetaminophen 500 Mg Tablet 500 Mg PO TID Diagnosis: Problems: (1) Suicidal ideation (2) Acute adjustment disorder (3) Anxiety disorder (4) Impulse control disorder (5) Bipolar affective, mixed, sev w/ psych (6) Dementia, vascular, with depression (7) Dementia, vascular, 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
--- NOTE | 2017-06-13 22:44 | PN ---
DATE: 06/12/2017 This is a late entry 06/12/2017, covers the elements not covered in my initial note of 06/12/2017. SUBJECTIVE: I met with the patient evening of 06/12/2017. The patient remains confused, frequently complains of feeling cold, withdraws to his room, and went to bed after breakfast, refuses to answer questions, oriented x 1. Slept 7 hours the previous evening. No CV, , pulmonary, eye, ENT system symptoms on review of systems, as I met with him in his room individually. Reliability poor. MENTAL STATUS EXAM: The patient is fairly quiet, withdrawn, not very verbally interactive. Insight, judgment, recent and remote memory, attention, concentration, fund of knowledge poor, consistent with his diagnosis. He does not clearly respond to review of system, questions and the above is deduction from his overall mental status. LABORATORY DATA: Reviewed. IMPRESSION: Unchanged from initial note. PLAN: Continue psychotropics as mentioned in my initial note. Valproic acid level is 67, Lexapro has been increased to 10 mg a day. We will see how he does over the next day or two and then decide further. Review or drug interactions, risk/benefit ratio favors no further change. KAREN GARCIA MD DR: MARGIE/nikolay JOB#: [id number] / [id number]
[2017-06-14 05:51] VITALS: BP_SYST 137; BP_SYST 168; BP_DIAS 79; BP_DIAS 88
[2017-06-14] MEDS: CLOPIDOGREL BISULFATE 75 MG TABLET PO SCH (08:48)
[2017-06-14] MEDS: metFORMIN 500 MG TABLET PO SCH ×2 (08:48→18:16)
[2017-06-14] MEDS: DIVALPROEX ER 500 MG TAB.ER.24H PO SCH (08:48)
[2017-06-14] MEDS: glipiZIDE 5 MG TABLET PO SCH (08:48)
[2017-06-14] MEDS: ACETAMINOPHEN 500 MG TABLET PO SCH ×3 (08:48→19:46)
[2017-06-14] MEDS: CLOTRIMAZOLE 1% TOPICAL CREAM 30GM TUBE. TP SCH ×2 (08:48→19:47)
[2017-06-14] MEDS: FOLIC ACID 1 MG TABLET PO SCH (08:49)
[2017-06-14] MEDS: ASPIRIN ENTERIC COATED 81 MG TABLET.DR. PO SCH (08:49)
[2017-06-14] MEDS: LISINOPRIL 2.5 MG TABLET PO SCH (08:49)
[2017-06-14] MEDS: CARVEDILOL 3.125 MG TABLET PO SCH ×2 (08:49→18:17)
[2017-06-14] MEDS: QUEtiapine 25 MG TABLET. PO SCH (08:50)
[2017-06-14] MEDS: NYSTATIN TOPICAL POWDER 15GM BOTTLE. TP SCH ×2 (08:50→19:47)
[2017-06-14] MEDS: ESCITALOPRAM 20 MG TABLET. PO SCH (08:50)
[2017-06-14 16:07] VITALS: BP 138/85
[2017-06-14] MEDS: MAGNESIUM OXIDE 400 MG TABLET PO SCH (18:16)
[2017-06-14] MEDS: ATORVASTATIN CALCIUM 20 MG TABLET PO SCH (19:46)
[2017-06-14] MEDS: QUEtiapine 100 MG TABLET. PO SCH (19:46)
[2017-06-14] MEDS: MIRTAZAPINE 7.5 MG TABLET. PO SCH (19:46)
--- NOTE | 2017-06-14 20:53 | PDOC ---
Exam Jame Demential Exam: Jame Note: Please also refer to the separate dictated note~for this date of service dictated separately.~Patient seen individually. Discussed the patient with Nursing staff reviewed the chart.~Reviewed interim history and current functioning. Reviewed vital signs,~Labs/ Radiology~and current medications noted below. Continue current treatment with the changes noted in the dictated addendum note Assessment: Vital Signs: Vital Signs Date Time Temp Pulse Resp B/P (MAP) Pulse Ox O2 Delivery O2 Flow Rate FiO2 06/14/17 18:17 55 138/85 06/14/17 16:07 97.4 18 96 06/13/17 05:47 Room Air I&O Intake and Output 06/15/17 07:00 Intake Total 840 ml Balance 840 ml Intake Oral 840 ml # Bowel Movements 1 Current Medications: Meds: Current Medications Ciprofloxacin (Cipro) 500 mg 1X ONCE PO Last administered on 06/07/17 23:22; Start 06/07/17 at 23:30; Stop 06/07/17 at 23:31; Status DC Info (FLU VACCINE per PROTOCOL) 1 ea 1X ONCE MC ; Start 06/08/17 at 00:15; Stop 06/08/17 at 00:16; Status UNV Acetaminophen (Tylenol) 650 mg PRN Q6HRS PRN PO PAIN / TEMP; Start 06/08/17 at 00:15 Multi-Ingredient Ointment (Analgesic [place]) 1 angelika PRN QID PRN TP MUSCLE PAIN; Start 06/08/17 at 00:15 Al Hydroxide/Mg Hydroxide (Mylanta Plus Xs) 15 ml PRN AFTMEALHC PRN PO DYSPEPSIA; Start 06/08/17 at 00:15 Magnesium Hydroxide (Milk Of Magnesia) 2,400 mg PRN QHS PRN PO CONSTIPATION; Start 06/08/17 at 00:15 Divalproex Sodium (Depakote Er) 1,500 mg DAILY PO Last administered on 08:48; Start 06/08/17 at 09:00 Quetiapine Fumarate (SEROquel) 25 mg DAILY PO Last administered on 06/14/17 08 :50; Start 06/08/17 at 09:00 Quetiapine Fumarate (SEROquel) 50 mg QHS PO Last administered on 06/12/17 19: 49; Start 06/08/17 at 21:00; Stop 06/13/17 at 10:16; Status DC Acetaminophen (Tylenol) 500 mg TID PO Last administered on 06/14/17 19:46; Start 06/08/17 at 09:00 Aspirin (Aspirin Enteric Coated) 81 mg DAILY PO Last administered on 06/14/17 08:49; Start 06/08/17 at 09:00 Atorvastatin Calcium (Lipitor) 20 mg QHS PO Last administered on 06/14/17 19: 46; Start 06/08/17 at 21:00 Carvedilol (Coreg) 3.125 mg BIDWMEALS PO Last administered on 06/14/17 08:49; Start 06/08/17 at 08:00 Clopidogrel Bisulfate (Plavix) 75 mg DAILY PO Last administered on 06/14/17 08 :48; Start 06/08/17 at 09:00 Famotidine (Pepcid) 20 mg PRN DAILY PRN PO GERD; Start 06/08/17 at 00:15 Folic Acid (Folic Acid) 1 mg DAILY PO Last administered on 06/14/17 08:49; Start 06/08/17 at 09:00 Glipizide (Glucotrol) 5 mg DAILYWBKFT PO Last administered on 06/14/17 08:48; Start 06/08/17 at 08:00 Lisinopril (Prinivil) 2.5 mg DAILY PO Last administered on 06/14/17 08:49; Start 06/08/17 at 09:00 Metformin HCl (Glucophage) 1,000 mg BIDWMEALS PO Last administered on 18:16; Start 06/08/17 at 08:00 Influenza Virus Vaccine Quadrival (Fluarix Quad [id number] Syringe) 0.5 ml ONCE ONCE VAX IM Last administered on 06/08/17 14:04; Start 06/08/17 at 09:00; Stop 06/08/17 at 09:01; Status DC Clotrimazole (Lotrimin) 1 angelika BID TP Last administered on 06/14/17 19:47; Start 06/08/17 at 21:00 Escitalopram Oxalate (Lexapro) 5 mg DAILY PO Last administered on 06/11/17 09: 00; Start 06/11/17 at 09:00; Stop 06/11/17 at 18:23; Status DC Mirtazapine (Remeron) 7.5 mg QHS PO Last administered on 06/14/17 19:46; Start 06/10/17 at 21:00 Vitamin D (Vitamin D3) 50,000 unit WEEKLY PO Last administered on 06/11/17 09: 02; Start 06/11/17 at 09:00 Escitalopram Oxalate (Lexapro) 10 mg DAILY PO Last administered on 06/14/17 08 :50; Start 06/12/17 at 09:00 Nystatin (Nystop) 1 angelika BID TP Last administered on 06/14/17 19:47; Start at 13:00 Quetiapine Fumarate (SEROquel) 100 mg HS PO Last administered on 06/14/17 19: 46; Start 06/13/17 at 21:00 Magnesium Oxide (Magnesium Oxide) 400 mg DAILYBFRSUP PO Last administered on 18:16; Start 06/14/17 at 17:00 Active Scripts Active Reported Famotidine 20 Mg Tablet 20 Mg PO PRN DAILY PRN Seroquel (Quetiapine Fumarate) 50 Mg Tablet 50 Mg PO QHS Atorvastatin Calcium 20 Mg Tablet 20 Mg PO QHS Depakote Er (Divalproex Sodium) 500 Mg Tab.er.24h 1,500 Mg PO DAILY Metformin Hcl 1,000 Mg Tablet 1,000 Mg PO BIDWMEALS Plavix (Clopidogrel Bisulfate) 75 Mg Tablet 75 Mg PO DAILY Seroquel (Quetiapine Fumarate) 25 Mg Tablet 25 Mg PO DAILY Lisinopril 2.5 Mg Tablet 2.5 Mg PO DAILY Glipizide 5 Mg Tablet 5 Mg PO DAILY Folic Acid 1 Mg Tablet 1 Mg PO DAILY Coreg (Carvedilol) 3.125 Mg Tablet 3.125 Mg PO BIDWMEALS Aspir-Low (Aspirin) 81 Mg Tablet.dr 81 Mg PO DAILY Acetaminophen 500 Mg Tablet 500 Mg PO TID Diagnosis: Problems: (1) Suicidal ideation (2) Acute adjustment disorder (3) Anxiety disorder (4) Impulse control disorder (5) Bipolar affective, mixed, sev w/ psych (6) Dementia, vascular, with depression (7) Dementia, vascular, 

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
[2017-06-15 06:09] VITALS: BP_SYST 112; BP_SYST 180; BP_DIAS 56; BP_DIAS 84
[2017-06-15 08:08] LABS: BASO % 0 % (0-3); EOS # 0.2 x10^3/uL (0.0-0.7); EOS % 4 % (0-3); HEMOGLOBIN 15.6 g/dL (13.0-17.5); LYMPH # 1.8 x10^3/uL (1.0-4.8); LYMPH % 31 % (24-48); MEAN CORPUSCULAR HEMOGLOBIN 33 pg (25-35); MEAN CORPUSCULAR HGB CONC 34 g/dL (31-37); MEAN CORPUSCULAR VOLUME 98 fL (79-100); MONO # 0.6 x10^3/uL (0.0-1.1); MONO % 10 % (0-9); NEUT # 3.3 x10^3uL (1.8-7.7); NEUT % 55 % (31-73); PLATELET COUNT 89 x10^3/uL (140-400); RED BLOOD COUNT 4.69 x10^6/uL (4.30-5.70); RED CELL DISTRIBUTION WIDTH 14.3 % (11.5-14.5); WHITE BLOOD COUNT 5.9 x10^3/uL (4.0-11.0)
[2017-06-15 08:18] LABS: ALBUMIN 3.1 g/dL (3.4-5.0); ALBUMIN/GLOBULIN RATIO 1.1 (1.0-1.7); CALCIUM 8.5 mg/dL (8.5-10.1); CREATININE 1.2 mg/dL (0.7-1.3); POTASSIUM 4.7 mmol/L (3.5-5.1); TOTAL BILIRUBIN 0.4 mg/dL (0.2-1.0)
[2017-06-15] MEDS: glipiZIDE 5 MG TABLET PO SCH (08:22)
[2017-06-15] MEDS: ASPIRIN ENTERIC COATED 81 MG TABLET.DR. PO SCH (08:22)
[2017-06-15] MEDS: metFORMIN 500 MG TABLET PO SCH ×2 (08:22→17:26)
[2017-06-15 08:23] VITALS: BP 131/84
[2017-06-15] MEDS: DIVALPROEX ER 500 MG TAB.ER.24H PO SCH (08:23)
[2017-06-15] MEDS: FOLIC ACID 1 MG TABLET PO SCH (08:23)
[2017-06-15] MEDS: ESCITALOPRAM 20 MG TABLET. PO SCH (08:23)
[2017-06-15] MEDS: CLOPIDOGREL BISULFATE 75 MG TABLET PO SCH (08:23)
[2017-06-15] MEDS: LISINOPRIL 2.5 MG TABLET PO SCH (08:24)
[2017-06-15] MEDS: CARVEDILOL 3.125 MG TABLET PO SCH ×2 (08:25→17:26)
[2017-06-15] MEDS: QUEtiapine 25 MG TABLET. PO SCH (08:26)
[2017-06-15] MEDS: ACETAMINOPHEN 500 MG TABLET PO SCH ×3 (08:26→19:28)
[2017-06-15] MEDS: CLOTRIMAZOLE 1% TOPICAL CREAM 30GM TUBE. TP SCH ×2 (08:27→19:29)
[2017-06-15] MEDS: NYSTATIN TOPICAL POWDER 15GM BOTTLE. TP SCH ×2 (08:27→19:30)
[2017-06-15 16:47] VITALS: BP 130/78
[2017-06-15] MEDS: MAGNESIUM OXIDE 400 MG TABLET PO SCH (17:26)
[2017-06-15] MEDS: MIRTAZAPINE 7.5 MG TABLET. PO SCH (19:28)
[2017-06-15] MEDS: ATORVASTATIN CALCIUM 20 MG TABLET PO SCH (19:28)
[2017-06-15] MEDS: risperiDONE 0.25 MG TABLET. PO SCH (19:30)
--- NOTE | 2017-06-15 21:07 | PDOC ---
Exam Jame Demential Exam: Jame Note: Please also refer to the separate dictated note~for this date of service dictated separately.~Patient seen individually. Discussed the patient with Nursing staff reviewed the chart.~Reviewed interim history and current functioning. Reviewed vital signs,~Labs/ Radiology~and current medications noted below. Continue current treatment with the changes noted in the dictated addendum note Assessment: Vital Signs: Vital Signs Date Time Temp Pulse Resp B/P (MAP) Pulse Ox O2 Delivery O2 Flow Rate FiO2 06/15/17 17:26 72 130/78 06/15/17 16:47 97.6 18 96 06/13/17 05:47 Room Air I&O Intake and Output 06/16/17 07:00 Intake Total 960 ml Balance 960 ml Intake Oral 960 ml Labs: Laboratory Tests Test 06/15/17 07:35 White Blood Count 5.9 x10^3/uL (4.0-11.0) Red Blood Count 4.69 x10^6/uL (4.30-5.70) Hemoglobin 15.6 g/dL (13.0-17.5) Hematocrit 46.0 % (39.0-53.0) Mean Corpuscular Volume 98 fL (79-100) Mean Corpuscular Hemoglobin 33 pg (25-35) Mean Corpuscular Hemoglobin Concent 34 g/dL (31-37) Red Cell Distribution Width 14.3 % (11.5-14.5) Platelet Count 89 x10^3/uL (140-400) L Neutrophils (%) (Auto) 55 % (31-73) Lymphocytes (%) (Auto) 31 % (24-48) Monocytes (%) (Auto) 10 % (0-9) H Eosinophils (%) (Auto) 4 % (0-3) H Basophils (%) (Auto) 0 % (0-3) Neutrophils # (Auto) 3.3 x10^3uL (1.8-7.7) Lymphocytes # (Auto) 1.8 x10^3/uL (1.0-4.8) Monocytes # (Auto) 0.6 x10^3/uL (0.0-1.1) Eosinophils # (Auto) 0.2 x10^3/uL (0.0-0.7) Basophils # (Auto) 0.0 x10^3/uL (0.0-0.2) Sodium Level 146 mmol/L (136-145) H Potassium Level 4.7 mmol/L (3.5-5.1) Chloride Level 112 mmol/L (98-107) H Carbon Dioxide Level 23 mmol/L (21-32) Anion Gap 11 (6-14) Blood Urea Nitrogen 21 mg/dL (8-26) Creatinine 1.2 mg/dL (0.7-1.3) Estimated GFR (Cockcroft-Gault) 59.0 BUN/Creatinine Ratio 18 (6-20) Glucose Level 101 mg/dL (70-99) H Calcium Level 8.5 mg/dL (8.5-10.1) Total Bilirubin 0.4 mg/dL (0.2-1.0) Aspartate Amino Transferase (AST) 17 U/L (15-37) Alanine Aminotransferase (ALT) 17 U/L (16-63) Alkaline Phosphatase 32 U/L (46-116) L Total Protein 6.0 g/dL (6.4-8.2) L Albumin 3.1 g/dL (3.4-5.0) L Albumin/Globulin Ratio 1.1 (1.0-1.7) Current Medications: Meds: Current Medications Ciprofloxacin (Cipro) 500 mg 1X ONCE PO Last administered on 06/07/17t 23:22; Start 06/07/17 at 23:30; Stop 06/07/17 at 23:31; Status DC Info (FLU VACCINE per PROTOCOL) 1 ea 1X ONCE MC ; Start 06/08/17 at 00:15; Stop 06/08/17 at 00:16; Status UNV Acetaminophen (Tylenol) 650 mg PRN Q6HRS PRN PO PAIN / TEMP; Start 06/08/17 at 00:15 Multi-Ingredient Ointment (Analgesic [place]) 1 angelika PRN QID PRN TP MUSCLE PAIN; Start 06/08/17 at 00:15 Al Hydroxide/Mg Hydroxide (Mylanta Plus Xs) 15 ml PRN AFTMEALHC PRN PO DYSPEPSIA; Start 06/08/17 at 00:15 Magnesium Hydroxide (Milk Of Magnesia) 2,400 mg PRN QHS PRN PO CONSTIPATION; Start 06/08/17 at 00:15 Divalproex Sodium (Depakote Er) 1,500 mg DAILY PO Last administered on 08:23; Start 06/08/17 at 09:00 Quetiapine Fumarate (SEROquel) 25 mg DAILY PO Last administered on 06/15/17 08 :26; Start 06/08/17 at 09:00; Stop 06/15/17 at 12:07; Status DC Quetiapine Fumarate (SEROquel) 50 mg QHS PO Last administered on 06/12/17 19: 49; Start 06/08/17 at 21:00; Stop 06/13/17 at 10:16; Status DC Acetaminophen (Tylenol) 500 mg TID PO Last administered on 06/15/17 19:28; Start 06/08/17 at 09:00 Aspirin (Aspirin Enteric Coated) 81 mg DAILY PO Last administered on 06/15/17 08:22; Start 06/08/17 at 09:00 Atorvastatin Calcium (Lipitor) 20 mg QHS PO Last administered on 06/15/17 19: 28; Start 06/08/17 at 21:00 Carvedilol (Coreg) 3.125 mg BIDWMEALS PO Last administered on 06/15/17 17:26; Start 06/08/17 at 08:00 Clopidogrel Bisulfate (Plavix) 75 mg DAILY PO Last administered on 06/15/17 08 :23; Start 06/08/17 at 09:00 Famotidine (Pepcid) 20 mg PRN DAILY PRN PO GERD; Start 06/08/17 at 00:15 Folic Acid (Folic Acid) 1 mg DAILY PO Last administered on 06/15/17 08:23; Start 06/08/17 at 09:00 Glipizide (Glucotrol) 5 mg DAILYWBKFT PO Last administered on 06/15/17 08:22; Start 06/08/17 at 08:00 Lisinopril (Prinivil) 2.5 mg DAILY PO Last administered on 06/15/17 08:24; Start 06/08/17 at 09:00 Metformin HCl (Glucophage) 1,000 mg BIDWMEALS PO Last administered on 17:26; Start 06/08/17 at 08:00 Influenza Virus Vaccine Quadrival (Fluarix Quad [id number] Syringe) 0.5 ml ONCE ONCE VAX IM Last administered on 06/08/17 14:04; Start 06/08/17 at 09:00; Stop 06/08/17 at 09:01; Status DC Clotrimazole (Lotrimin) 1 angelika BID TP Last administered on 06/15/17 19:29; Start 06/08/17 at 21:00 Escitalopram Oxalate (Lexapro) 5 mg DAILY PO Last administered on 06/11/17 09: 00; Start 06/11/17 at 09:00; Stop 06/11/17 at 18:23; Status DC Mirtazapine (Remeron) 7.5 mg QHS PO Last administered on 06/15/17 19:28; Start 06/10/17 at 21:00 Vitamin D (Vitamin D3) 50,000 unit WEEKLY PO Last administered on 06/11/17 09: 02; Start 06/11/17 at 09:00 Escitalopram Oxalate (Lexapro) 10 mg DAILY PO Last administered on 06/15/17 08 :23; Start 06/12/17 at 09:00 Nystatin (Nystop) 1 angelika BID TP Last administered on 06/15/17 19:30; Start at 13:00 Quetiapine Fumarate (SEROquel) 100 mg HS PO Last administered on 06/14/17 19: 46; Start 06/13/17 at 21:00; Stop 06/15/17 at 12:07; Status DC Magnesium Oxide (Magnesium Oxide) 400 mg DAILYBFRSUP PO Last administered on 17:26; Start 06/14/17 at 17:00 Risperidone (RisperDAL) 0.25 mg BID PO Last administered on 06/15/17 19:30; Start 06/15/17 at 21:00 Active Scripts Active Reported Famotidine 20 Mg Tablet 20 Mg PO PRN DAILY PRN Seroquel (Quetiapine Fumarate) 50 Mg Tablet 50 Mg PO QHS Atorvastatin Calcium 20 Mg Tablet 20 Mg PO QHS Depakote Er (Divalproex Sodium) 500 Mg Tab.er.24h 1,500 Mg PO DAILY Metformin Hcl 1,000 Mg Tablet 1,000 Mg PO BIDWMEALS Plavix (Clopidogrel Bisulfate) 75 Mg Tablet 75 Mg PO DAILY Seroquel (Quetiapine Fumarate) 25 Mg Tablet 25 Mg PO DAILY Lisinopril 2.5 Mg Tablet 2.5 Mg PO DAILY Glipizide 5 Mg Tablet 5 Mg PO DAILY Folic Acid 1 Mg Tablet 1 Mg PO DAILY Coreg (Carvedilol) 3.125 Mg Tablet 3.125 Mg PO BIDWMEALS Aspir-Low (Aspirin) 81 Mg Tablet.dr 81 Mg PO DAILY Acetaminophen 500 Mg Tablet 500 Mg PO TID Diagnosis: Problems: (1) Suicidal ideation (2) Acute adjustment disorder (3) Anxiety disorder (4) Impulse control disorder (5) Bipolar affective, mixed, sev w/ psych (6) Dementia, vascular, with depression (7) Dementia, vascular, 

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
[2017-06-16 06:14] VITALS: BP 99/62
[2017-06-16] MEDS: metFORMIN 500 MG TABLET PO SCH ×2 (08:00→17:04)
[2017-06-16] MEDS: CARVEDILOL 3.125 MG TABLET PO SCH ×2 (08:00→17:04)
[2017-06-16] MEDS: glipiZIDE 5 MG TABLET PO SCH (08:00)
[2017-06-16] MEDS: ASPIRIN ENTERIC COATED 81 MG TABLET.DR. PO SCH (08:01)
[2017-06-16] MEDS: FOLIC ACID 1 MG TABLET PO SCH (08:02)
[2017-06-16] MEDS: CLOPIDOGREL BISULFATE 75 MG TABLET PO SCH (08:02)
[2017-06-16] MEDS: DIVALPROEX ER 500 MG TAB.ER.24H PO SCH (08:02)
[2017-06-16] MEDS: ESCITALOPRAM 20 MG TABLET. PO SCH (08:02)
[2017-06-16] MEDS: risperiDONE 0.25 MG TABLET. PO SCH ×2 (08:03→19:42)
[2017-06-16] MEDS: NYSTATIN TOPICAL POWDER 15GM BOTTLE. TP SCH ×2 (08:05→19:42)
[2017-06-16] MEDS: ACETAMINOPHEN 500 MG TABLET PO SCH ×3 (08:05→19:42)
[2017-06-16] MEDS: CLOTRIMAZOLE 1% TOPICAL CREAM 30GM TUBE. TP SCH ×2 (08:05→19:43)
[2017-06-16 08:10] LABS: BACTERIA,URINE FEW /HPF (0-FEW); BILIRUBIN,URINE NEG (NEG); CLARITY,URINE CLOUDY; COLOR,URINE STRAW; GLUCOSE,URINE NEG (NEG); NITRITE,URINE NEG (NEG); SQUAMOUS EPITHELIAL CELL,UR OCC /LPF; UROBILINOGEN,URINE 0.2 mg/dL (0.2 mg/dL); WBC,URINE >40 /HPF (0-4)
[2017-06-16] MEDS: LISINOPRIL 2.5 MG TABLET PO SCH (09:00)
[2017-06-16 16:12] VITALS: BP 137/78
[2017-06-16] MEDS: MAGNESIUM OXIDE 400 MG TABLET PO SCH (17:04)
[2017-06-16] MEDS: MIRTAZAPINE 7.5 MG TABLET. PO SCH (19:41)
[2017-06-16] MEDS: ATORVASTATIN CALCIUM 20 MG TABLET PO SCH (19:41)
--- NOTE | 2017-06-16 20:12 | PN ---
DATE: 06/15/2017 This late entry 06/15/2017 covers elements not covered in my initial note 06/15/2017. The patient was seen individually evening of 06/15/2017 in his room. Per nursing report, the patient has been confused, calm, cooperative with medications and assessment. He spends much time in his room and even when in the day room, he is by himself, remained somewhat paranoid. REVIEW OF SYSTEMS: No CV, , pulmonary, eye, ENT system symptoms on review. Reliability poor. MENTAL STATUS EXAM: Oriented to herself. Insight, judgment, recent and remote memory, attention, concentration, fund of knowledge poor, consistent with his diagnosis. LABORATORY DATA: Reviewed. IMPRESSION: Unchanged from initial note. PLAN: Continue current psychotropics and Risperdal was started in place of Seroquel, reviewed drug interactions, risk/benefit ratio favors no further change at this time. KAREN GARCIA MD DR: MARGIE/nikolay JOB#: [id number] / [id number]
--- NOTE | 2017-06-16 22:32 | PDOC ---
Exam Jame Demential Exam: Jame Note: Please also refer to the separate dictated note~for this date of service dictated separately.~Patient seen individually. Discussed the patient with Nursing staff reviewed the chart.~Reviewed interim history and current functioning. Reviewed vital signs,~Labs/ Radiology~and current medications noted below. Continue current treatment with the changes noted in the dictated addendum note Assessment: Vital Signs: Vital Signs Date Time Temp Pulse Resp B/P (MAP) Pulse Ox O2 Delivery O2 Flow Rate FiO2 06/16/17 17:04 66 137/78 06/16/17 16:12 97.7 20 95 06/13/17 05:47 Room Air I&O Intake and Output 06/17/17 07:00 Intake Total 1080 ml Balance 1080 ml Intake Oral 1080 ml # Voids 2 Labs: Laboratory Tests Test 06/16/17 07:39 Urine Collection Type Unknown Urine Color Straw Urine Clarity Cloudy Urine pH 6.5 Urine Specific [place] 1.010 Urine Protein Neg (NEG-TRACE) Urine Glucose (UA) Neg mg/dL (NEG) Urine Ketones (Stick) Neg mg/dL (NEG) Urine Blood Mod (NEG) Urine Nitrite Neg (NEG) Urine Bilirubin Neg (NEG) Urine Urobilinogen Dipstick 0.2 mg/dL (0.2 mg/dL) Urine Leukocyte Esterase Large (NEG) Urine RBC 3-5 /HPF (0-2) Urine WBC >40 /HPF (0-4) Urine Squamous Epithelial Cells Occ /LPF Urine Bacteria Few /HPF (0-FEW) Urine Mucus Slight /LPF Current Medications: Meds: Current Medications Ciprofloxacin (Cipro) 500 mg 1X ONCE PO Last administered on 06/07/17t 23:22; Start 06/07/17 at 23:30; Stop 06/07/17 at 23:31; Status DC Info (FLU VACCINE per PROTOCOL) 1 ea 1X ONCE MC ; Start 06/08/17 at 00:15; Stop 06/08/17 at 00:16; Status UNV Acetaminophen (Tylenol) 650 mg PRN Q6HRS PRN PO PAIN / TEMP; Start 06/08/17 at 00:15 Multi-Ingredient Ointment (Analgesic [place]) 1 angelika PRN QID PRN TP MUSCLE PAIN; Start 06/08/17 at 00:15 Al Hydroxide/Mg Hydroxide (Mylanta Plus Xs) 15 ml PRN AFTMEALHC PRN PO DYSPEPSIA; Start 06/08/17 at 00:15 Magnesium Hydroxide (Milk Of Magnesia) 2,400 mg PRN QHS PRN PO CONSTIPATION; Start 06/08/17 at 00:15 Divalproex Sodium (Depakote Er) 1,500 mg DAILY PO Last administered on 08:02; Start 06/08/17 at 09:00 Quetiapine Fumarate (SEROquel) 25 mg DAILY PO Last administered on 06/15/17 08 :26; Start 06/08/17 at 09:00; Stop 06/15/17 at 12:07; Status DC Quetiapine Fumarate (SEROquel) 50 mg QHS PO Last administered on 06/12/17 19: 49; Start 06/08/17 at 21:00; Stop 06/13/17 at 10:16; Status DC Acetaminophen (Tylenol) 500 mg TID PO Last administered on 06/16/17 19:42; Start 06/08/17 at 09:00 Aspirin (Aspirin Enteric Coated) 81 mg DAILY PO Last administered on 06/16/17 08:01; Start 06/08/17 at 09:00 Atorvastatin Calcium (Lipitor) 20 mg QHS PO Last administered on 06/16/17 19: 41; Start 06/08/17 at 21:00 Carvedilol (Coreg) 3.125 mg BIDWMEALS PO Last administered on 06/16/17 17:04; Start 06/08/17 at 08:00 Clopidogrel Bisulfate (Plavix) 75 mg DAILY PO Last administered on 06/16/17 08 :02; Start 06/08/17 at 09:00 Famotidine (Pepcid) 20 mg PRN DAILY PRN PO GERD; Start 06/08/17 at 00:15 Folic Acid (Folic Acid) 1 mg DAILY PO Last administered on 06/16/17 08:02; Start 06/08/17 at 09:00 Glipizide (Glucotrol) 5 mg DAILYWBKFT PO Last administered on 06/16/17 08:00; Start 06/08/17 at 08:00 Lisinopril (Prinivil) 2.5 mg DAILY PO Last administered on 06/15/17 08:24; Start 06/08/17 at 09:00 Metformin HCl (Glucophage) 1,000 mg BIDWMEALS PO Last administered on 17:04; Start 06/08/17 at 08:00 Influenza Virus Vaccine Quadrival (Fluarix Quad [id number] Syringe) 0.5 ml ONCE ONCE VAX IM Last administered on 06/08/17 14:04; Start 06/08/17 at 09:00; Stop 06/08/17 at 09:01; Status DC Clotrimazole (Lotrimin) 1 angelika BID TP Last administered on 06/16/17 19:43; Start 06/08/17 at 21:00 Escitalopram Oxalate (Lexapro) 5 mg DAILY PO Last administered on 06/11/17 09: 00; Start 06/11/17 at 09:00; Stop 06/11/17 at 18:23; Status DC Mirtazapine (Remeron) 7.5 mg QHS PO Last administered on 06/16/17 19:41; Start 06/10/17 at 21:00 Vitamin D (Vitamin D3) 50,000 unit WEEKLY PO Last administered on 06/11/17 09: 02; Start 06/11/17 at 09:00 Escitalopram Oxalate (Lexapro) 10 mg DAILY PO Last administered on 06/16/17 08 :02; Start 06/12/17 at 09:00 Nystatin (Nystop) 1 angelika BID TP Last administered on 06/16/17 19:42; Start at 13:00 Quetiapine Fumarate (SEROquel) 100 mg HS PO Last administered on 06/14/17 19: 46; Start 06/13/17 at 21:00; Stop 06/15/17 at 12:07; Status DC Magnesium Oxide (Magnesium Oxide) 400 mg DAILYBFRSUP PO Last administered on 17:04; Start 06/14/17 at 17:00 Risperidone (RisperDAL) 0.25 mg BID PO Last administered on 06/16/17 19:42; Start 06/15/17 at 21:00 Active Scripts Active Reported Famotidine 20 Mg Tablet 20 Mg PO PRN DAILY PRN Seroquel (Quetiapine Fumarate) 50 Mg Tablet 50 Mg PO QHS Atorvastatin Calcium 20 Mg Tablet 20 Mg PO QHS Depakote Er (Divalproex Sodium) 500 Mg Tab.er.24h 1,500 Mg PO DAILY Metformin Hcl 1,000 Mg Tablet 1,000 Mg PO BIDWMEALS Plavix (Clopidogrel Bisulfate) 75 Mg Tablet 75 Mg PO DAILY Seroquel (Quetiapine Fumarate) 25 Mg Tablet 25 Mg PO DAILY Lisinopril 2.5 Mg Tablet 2.5 Mg PO DAILY Glipizide 5 Mg Tablet 5 Mg PO DAILY Folic Acid 1 Mg Tablet 1 Mg PO DAILY Coreg (Carvedilol) 3.125 Mg Tablet 3.125 Mg PO BIDWMEALS Aspir-Low (Aspirin) 81 Mg Tablet.dr 81 Mg PO DAILY Acetaminophen 500 Mg Tablet 500 Mg PO TID Diagnosis: Problems: (1) Suicidal ideation (2) Acute adjustment disorder (3) Anxiety disorder (4) Impulse control disorder (5) Bipolar affective, mixed, sev w/ psych (6) Dementia, vascular, with depression (7) Dementia, vascular, 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
[2017-06-17 06:43] VITALS: BP 100/65
[2017-06-17] MEDS: CARVEDILOL 3.125 MG TABLET PO SCH ×2 (08:00→17:00)
[2017-06-17] MEDS: metFORMIN 500 MG TABLET PO SCH ×2 (08:30→17:14)
[2017-06-17] MEDS: risperiDONE 0.25 MG TABLET. PO SCH ×2 (08:31→19:53)
[2017-06-17] MEDS: ASPIRIN ENTERIC COATED 81 MG TABLET.DR. PO SCH (08:31)
[2017-06-17] MEDS: glipiZIDE 5 MG TABLET PO SCH (08:31)
[2017-06-17] MEDS: DIVALPROEX ER 500 MG TAB.ER.24H PO SCH (08:31)
[2017-06-17] MEDS: CLOPIDOGREL BISULFATE 75 MG TABLET PO SCH (08:31)
[2017-06-17] MEDS: ACETAMINOPHEN 500 MG TABLET PO SCH ×3 (08:31→19:53)
[2017-06-17] MEDS: FOLIC ACID 1 MG TABLET PO SCH (08:31)
[2017-06-17] MEDS: ESCITALOPRAM 20 MG TABLET. PO SCH (08:33)
[2017-06-17] MEDS: NYSTATIN TOPICAL POWDER 15GM BOTTLE. TP SCH ×2 (08:33→19:54)
[2017-06-17] MEDS: CLOTRIMAZOLE 1% TOPICAL CREAM 30GM TUBE. TP SCH ×2 (08:33→19:54)
[2017-06-17] MEDS: LISINOPRIL 2.5 MG TABLET PO SCH (09:00)
[2017-06-17 16:21] VITALS: BP 107/60
[2017-06-17] MEDS: MAGNESIUM OXIDE 400 MG TABLET PO SCH (17:14)
[2017-06-17] MEDS: ATORVASTATIN CALCIUM 20 MG TABLET PO SCH (19:53)
[2017-06-17] MEDS: MIRTAZAPINE 7.5 MG TABLET. PO SCH (19:54)
--- NOTE | 2017-06-17 20:55 | PDOC ---
Exam Jame Demential Exam: Jame Note: Please also refer to the separate dictated note~for this date of service dictated separately.~Patient seen individually. Discussed the patient with Nursing staff reviewed the chart.~Reviewed interim history and current functioning. Reviewed vital signs,~Labs/ Radiology~and current medications noted below. Continue current treatment with the changes noted in the dictated addendum note Assessment: Vital Signs: Vital Signs Date Time Temp Pulse Resp B/P (MAP) Pulse Ox O2 Delivery O2 Flow Rate FiO2 06/17/17 16:21 97.2 71 16 107/60 (76) 93 06/13/17 05:47 Room Air I&O Intake and Output 06/18/17 07:00 Intake Total 480 ml Balance 480 ml Intake Oral 480 ml Current Medications: Meds: Current Medications Ciprofloxacin (Cipro) 500 mg 1X ONCE PO Last administered on 06/07/17 23:22; Start 06/07/17 at 23:30; Stop 06/07/17 at 23:31; Status DC Info (FLU VACCINE per PROTOCOL) 1 ea 1X ONCE MC ; Start 06/08/17 at 00:15; Stop 06/08/17 at 00:16; Status UNV Acetaminophen (Tylenol) 650 mg PRN Q6HRS PRN PO PAIN / TEMP; Start 06/08/17 at 00:15 Multi-Ingredient Ointment (Analgesic [place]) 1 angelika PRN QID PRN TP MUSCLE PAIN; Start 06/08/17 at 00:15 Al Hydroxide/Mg Hydroxide (Mylanta Plus Xs) 15 ml PRN AFTMEALHC PRN PO DYSPEPSIA; Start 06/08/17 at 00:15 Magnesium Hydroxide (Milk Of Magnesia) 2,400 mg PRN QHS PRN PO CONSTIPATION; Start 06/08/17 at 00:15 Divalproex Sodium (Depakote Er) 1,500 mg DAILY PO Last administered on 08:31; Start 06/08/17 at 09:00 Quetiapine Fumarate (SEROquel) 25 mg DAILY PO Last administered on 06/15/17 08 :26; Start 06/08/17 at 09:00; Stop 06/15/17 at 12:07; Status DC Quetiapine Fumarate (SEROquel) 50 mg QHS PO Last administered on 06/12/17 19: 49; Start 06/08/17 at 21:00; Stop 06/13/17 at 10:16; Status DC Acetaminophen (Tylenol) 500 mg TID PO Last administered on 06/17/17 19:53; Start 06/08/17 at 09:00 Aspirin (Aspirin Enteric Coated) 81 mg DAILY PO Last administered on 06/17/17 08:31; Start 06/08/17 at 09:00 Atorvastatin Calcium (Lipitor) 20 mg QHS PO Last administered on 06/17/17 19: 53; Start 06/08/17 at 21:00 Carvedilol (Coreg) 3.125 mg BIDWMEALS PO Last administered on 06/16/17 17:04; Start 06/08/17 at 08:00 Clopidogrel Bisulfate (Plavix) 75 mg DAILY PO Last administered on 06/17/17 08 :31; Start 06/08/17 at 09:00 Famotidine (Pepcid) 20 mg PRN DAILY PRN PO GERD; Start 06/08/17 at 00:15 Folic Acid (Folic Acid) 1 mg DAILY PO Last administered on 06/17/17 08:31; Start 06/08/17 at 09:00 Glipizide (Glucotrol) 5 mg DAILYWBKFT PO Last administered on 06/17/17 08:31; Start 06/08/17 at 08:00 Lisinopril (Prinivil) 2.5 mg DAILY PO Last administered on 06/15/17 08:24; Start 06/08/17 at 09:00 Metformin HCl (Glucophage) 1,000 mg BIDWMEALS PO Last administered on 17:14; Start 06/08/17 at 08:00 Influenza Virus Vaccine Quadrival (Fluarix Quad [id number] Syringe) 0.5 ml ONCE ONCE VAX IM Last administered on 06/08/17 14:04; Start 06/08/17 at 09:00; Stop 06/08/17 at 09:01; Status DC Clotrimazole (Lotrimin) 1 angelika BID TP Last administered on 06/17/17 19:54; Start 06/08/17 at 21:00 Escitalopram Oxalate (Lexapro) 5 mg DAILY PO Last administered on 06/11/17 09: 00; Start 06/11/17 at 09:00; Stop 06/11/17 at 18:23; Status DC Mirtazapine (Remeron) 7.5 mg QHS PO Last administered on 06/17/17 19:54; Start 06/10/17 at 21:00 Vitamin D (Vitamin D3) 50,000 unit WEEKLY PO Last administered on 06/11/17 09: 02; Start 06/11/17 at 09:00 Escitalopram Oxalate (Lexapro) 10 mg DAILY PO Last administered on 06/17/17 08 :33; Start 06/12/17 at 09:00 Nystatin (Nystop) 1 angelika BID TP Last administered on 06/17/17 19:54; Start at 13:00 Quetiapine Fumarate (SEROquel) 100 mg HS PO Last administered on 06/14/17 19: 46; Start 06/13/17 at 21:00; Stop 06/15/17 at 12:07; Status DC Magnesium Oxide (Magnesium Oxide) 400 mg DAILYBFRSUP PO Last administered on 17:14; Start 06/14/17 at 17:00 Risperidone (RisperDAL) 0.25 mg BID PO Last administered on 06/17/17 19:53; Start 06/15/17 at 21:00 Active Scripts Active Reported Famotidine 20 Mg Tablet 20 Mg PO PRN DAILY PRN Seroquel (Quetiapine Fumarate) 50 Mg Tablet 50 Mg PO QHS Atorvastatin Calcium 20 Mg Tablet 20 Mg PO QHS Depakote Er (Divalproex Sodium) 500 Mg Tab.er.24h 1,500 Mg PO DAILY Metformin Hcl 1,000 Mg Tablet 1,000 Mg PO BIDWMEALS Plavix (Clopidogrel Bisulfate) 75 Mg Tablet 75 Mg PO DAILY Seroquel (Quetiapine Fumarate) 25 Mg Tablet 25 Mg PO DAILY Lisinopril 2.5 Mg Tablet 2.5 Mg PO DAILY Glipizide 5 Mg Tablet 5 Mg PO DAILY Folic Acid 1 Mg Tablet 1 Mg PO DAILY Coreg (Carvedilol) 3.125 Mg Tablet 3.125 Mg PO BIDWMEALS Aspir-Low (Aspirin) 81 Mg Tablet.dr 81 Mg PO DAILY Acetaminophen 500 Mg Tablet 500 Mg PO TID Diagnosis: Problems: (1) Suicidal ideation (2) Acute adjustment disorder (3) Anxiety disorder (4) Impulse control disorder (5) Bipolar affective, mixed, sev w/ psych (6) Dementia, vascular, with depression (7) Dementia, vascular, 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
--- NOTE | 2017-06-18 05:08 | PN ---
DATE: 06/16/2017 PSYCHIATRIC PROGRESS NOTE This late entry 06/16/2017, covers elements not covered in my initial note of 06/16/2017. SUBJECTIVE: I met with the patient evening of 06/16/2017. The patient's UA has reflex to culture and sensitivity. He has been somewhat withdrawn, compliant, paranoid, isolative at times in his room. REVIEW OF SYSTEMS: No CV, , pulmonary, eye, ENT system symptoms on review. Reliability poor. MENTAL STATUS EXAM: Oriented to himself. Insight, judgment, recent and remote memory, attention, concentration, fund of knowledge poor, consistent with his diagnosis mentioned in my initial note. PLAN: Continue current psychotropics, may need to increase the Risperdal gradually, maintain Depakote 1500 mg daily, level therapeutic at 67. Reviewed drug interactions, risk/benefit ratio favors no further change. MAN Koko GARCIA MD DR: MARGIE/nikolay JOB#: [id number] / [id number]
[2017-06-18 06:15] VITALS: BP 134/80
[2017-06-18] MEDS: ESCITALOPRAM 20 MG TABLET. PO SCH (08:26)
[2017-06-18] MEDS: ACETAMINOPHEN 500 MG TABLET PO SCH ×3 (08:26→19:23)
[2017-06-18] MEDS: DIVALPROEX ER 500 MG TAB.ER.24H PO SCH (08:26)
[2017-06-18] MEDS: CHOLECALCIFEROL (VITAMIN D3) 50,000 UNIT CAPSULE PO SCH (08:27)
[2017-06-18] MEDS: CARVEDILOL 3.125 MG TABLET PO SCH ×2 (08:27→16:41)
[2017-06-18] MEDS: LISINOPRIL 2.5 MG TABLET PO SCH (08:27)
[2017-06-18] MEDS: CLOPIDOGREL BISULFATE 75 MG TABLET PO SCH (08:27)
[2017-06-18] MEDS: ASPIRIN ENTERIC COATED 81 MG TABLET.DR. PO SCH (08:28)
[2017-06-18] MEDS: glipiZIDE 5 MG TABLET PO SCH (08:28)
[2017-06-18] MEDS: FOLIC ACID 1 MG TABLET PO SCH (08:28)
[2017-06-18] MEDS: metFORMIN 500 MG TABLET PO SCH ×2 (08:28→16:47)
[2017-06-18] MEDS: risperiDONE 0.25 MG TABLET. PO SCH ×2 (08:28→19:24)
[2017-06-18] MEDS: NYSTATIN TOPICAL POWDER 15GM BOTTLE. TP SCH ×2 (08:29→19:24)
[2017-06-18] MEDS: CLOTRIMAZOLE 1% TOPICAL CREAM 30GM TUBE. TP SCH ×2 (08:29→19:24)
[2017-06-18 16:01] VITALS: BP 98/64
[2017-06-18] MEDS: MAGNESIUM OXIDE 400 MG TABLET PO SCH (16:47)
[2017-06-18] MEDS: MIRTAZAPINE 7.5 MG TABLET. PO SCH (19:23)
[2017-06-18] MEDS: ATORVASTATIN CALCIUM 20 MG TABLET PO SCH (19:23)
--- NOTE | 2017-06-18 20:47 | PDOC ---
Exam Jame Demential Exam: Jame Note: Please also refer to the separate dictated note~for this date of service dictated separately.~Patient seen individually. Discussed the patient with Nursing staff reviewed the chart.~Reviewed interim history and current functioning. Reviewed vital signs,~Labs/ Radiology~and current medications noted below. Continue current treatment with the changes noted in the dictated addendum note Assessment: Vital Signs: Vital Signs Date Time Temp Pulse Resp B/P (MAP) Pulse Ox O2 Delivery O2 Flow Rate FiO2 06/18/17 16:01 97.4 68 18 98/64 (75) 94 06/13/17 05:47 Room Air I&O Intake and Output 06/19/17 07:00 Intake Total 960 ml Balance 960 ml Intake Oral 960 ml Labs: Laboratory Tests Test 06/18/17 07:44 Glucose (Fingerstick) 115 mg/dL (70-99) H Current Medications: Meds: Current Medications Ciprofloxacin (Cipro) 500 mg 1X ONCE PO Last administered on 06/07/17 23:22; Start 06/07/17 at 23:30; Stop 06/07/17 at 23:31; Status DC Info (FLU VACCINE per PROTOCOL) 1 ea 1X ONCE MC ; Start 06/08/17 at 00:15; Stop 06/08/17 at 00:16; Status UNV Acetaminophen (Tylenol) 650 mg PRN Q6HRS PRN PO PAIN / TEMP Last administered on 06/18/17 13:49; Start 06/08/17 at 00:15 Multi-Ingredient Ointment (Analgesic [place]) 1 angelika PRN QID PRN TP MUSCLE PAIN; Start 06/08/17 at 00:15 Al Hydroxide/Mg Hydroxide (Mylanta Plus Xs) 15 ml PRN AFTMEALHC PRN PO DYSPEPSIA; Start 06/08/17 at 00:15 Magnesium Hydroxide (Milk Of Magnesia) 2,400 mg PRN QHS PRN PO CONSTIPATION; Start 06/08/17 at 00:15 Divalproex Sodium (Depakote Er) 1,500 mg DAILY PO Last administered on 08:26; Start 06/08/17 at 09:00 Quetiapine Fumarate (SEROquel) 25 mg DAILY PO Last administered on 06/15/17 08 :26; Start 06/08/17 at 09:00; Stop 06/15/17 at 12:07; Status DC Quetiapine Fumarate (SEROquel) 50 mg QHS PO Last administered on 06/12/17 19: 49; Start 06/08/17 at 21:00; Stop 06/13/17 at 10:16; Status DC Acetaminophen (Tylenol) 500 mg TID PO Last administered on 06/18/17 19:23; Start 06/08/17 at 09:00 Aspirin (Aspirin Enteric Coated) 81 mg DAILY PO Last administered on 06/18/17 08:28; Start 06/08/17 at 09:00 Atorvastatin Calcium (Lipitor) 20 mg QHS PO Last administered on 06/18/17 19: 23; Start 06/08/17 at 21:00 Carvedilol (Coreg) 3.125 mg BIDWMEALS PO Last administered on 06/18/17 08:27; Start 06/08/17 at 08:00 Clopidogrel Bisulfate (Plavix) 75 mg DAILY PO Last administered on 06/18/17 08 :27; Start 06/08/17 at 09:00 Famotidine (Pepcid) 20 mg PRN DAILY PRN PO GERD; Start 06/08/17 at 00:15 Folic Acid (Folic Acid) 1 mg DAILY PO Last administered on 06/18/17 08:28; Start 06/08/17 at 09:00 Glipizide (Glucotrol) 5 mg DAILYWBKFT PO Last administered on 06/18/17 08:28; Start 06/08/17 at 08:00 Lisinopril (Prinivil) 2.5 mg DAILY PO Last administered on 06/18/17 08:27; Start 06/08/17 at 09:00 Metformin HCl (Glucophage) 1,000 mg BIDWMEALS PO Last administered on 16:47; Start 06/08/17 at 08:00 Influenza Virus Vaccine Quadrival (Fluarix Quad [id number] Syringe) 0.5 ml ONCE ONCE VAX IM Last administered on 06/08/17 14:04; Start 06/08/17 at 09:00; Stop 06/08/17 at 09:01; Status DC Clotrimazole (Lotrimin) 1 angelika BID TP Last administered on 06/18/17 19:24; Start 06/08/17 at 21:00 Escitalopram Oxalate (Lexapro) 5 mg DAILY PO Last administered on 06/11/17 09: 00; Start 06/11/17 at 09:00; Stop 06/11/17 at 18:23; Status DC Mirtazapine (Remeron) 7.5 mg QHS PO Last administered on 06/18/17 19:23; Start 06/10/17 at 21:00 Vitamin D (Vitamin D3) 50,000 unit WEEKLY PO Last administered on 06/18/17 08: 27; Start 06/11/17 at 09:00 Escitalopram Oxalate (Lexapro) 10 mg DAILY PO Last administered on 06/18/17 08 :26; Start 06/12/17 at 09:00 Nystatin (Nystop) 1 angelika BID TP Last administered on 06/18/17 19:24; Start at 13:00 Quetiapine Fumarate (SEROquel) 100 mg HS PO Last administered on 06/14/17 19: 46; Start 06/13/17 at 21:00; Stop 06/15/17 at 12:07; Status DC Magnesium Oxide (Magnesium Oxide) 400 mg DAILYBFRSUP PO Last administered on 16:47; Start 06/14/17 at 17:00 Risperidone (RisperDAL) 0.25 mg BID PO Last administered on 06/18/17 19:24; Start 06/15/17 at 21:00 Active Scripts Active Reported Famotidine 20 Mg Tablet 20 Mg PO PRN DAILY PRN Seroquel (Quetiapine Fumarate) 50 Mg Tablet 50 Mg PO QHS Atorvastatin Calcium 20 Mg Tablet 20 Mg PO QHS Depakote Er (Divalproex Sodium) 500 Mg Tab.er.24h 1,500 Mg PO DAILY Metformin Hcl 1,000 Mg Tablet 1,000 Mg PO BIDWMEALS Plavix (Clopidogrel Bisulfate) 75 Mg Tablet 75 Mg PO DAILY Seroquel (Quetiapine Fumarate) 25 Mg Tablet 25 Mg PO DAILY Lisinopril 2.5 Mg Tablet 2.5 Mg PO DAILY Glipizide 5 Mg Tablet 5 Mg PO DAILY Folic Acid 1 Mg Tablet 1 Mg PO DAILY Coreg (Carvedilol) 3.125 Mg Tablet 3.125 Mg PO BIDWMEALS Aspir-Low (Aspirin) 81 Mg Tablet. 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
[2017-06-19 06:18] VITALS: BP 131/73
[2017-06-19] MEDS: ACETAMINOPHEN 500 MG TABLET PO SCH ×3 (08:05→19:25)
[2017-06-19] MEDS: LISINOPRIL 2.5 MG TABLET PO SCH (08:05)
[2017-06-19] MEDS: NYSTATIN TOPICAL POWDER 15GM BOTTLE. TP SCH ×2 (08:05→19:25)
[2017-06-19] MEDS: CLOTRIMAZOLE 1% TOPICAL CREAM 30GM TUBE. TP SCH ×2 (08:05→19:26)
[2017-06-19] MEDS: metFORMIN 500 MG TABLET PO SCH ×2 (08:05→16:56)
[2017-06-19] MEDS: CARVEDILOL 3.125 MG TABLET PO SCH ×2 (08:06→16:56)
[2017-06-19] MEDS: ASPIRIN ENTERIC COATED 81 MG TABLET.DR. PO SCH (08:06)
[2017-06-19] MEDS: DIVALPROEX ER 500 MG TAB.ER.24H PO SCH (08:06)
[2017-06-19] MEDS: ESCITALOPRAM 20 MG TABLET. PO SCH (08:06)
[2017-06-19] MEDS: glipiZIDE 5 MG TABLET PO SCH (08:06)
[2017-06-19] MEDS: risperiDONE 0.25 MG TABLET. PO SCH ×2 (08:06→19:25)
[2017-06-19] MEDS: CLOPIDOGREL BISULFATE 75 MG TABLET PO SCH (08:07)
[2017-06-19] MEDS: FOLIC ACID 1 MG TABLET PO SCH (08:07)
--- NOTE | 2017-06-19 11:17 | PN ---
DATE: 06/17/2017 This late entry 06/17/2017 covers elements not covered in my initial note of 06/17/2017. SUBJECTIVE: I met with the patient evening of 06/17/2017. Overall, per nursing report, the patient remains withdrawn, isolative, somewhat paranoid, but calmer. REVIEW OF SYSTEMS: No CV, , pulmonary, eye, ENT system symptoms on review. Reliability poor met with him in his room. MENTAL STATUS EXAM: Oriented to himself. Insight, judgment, recent and remote memory, attention, concentration, fund of knowledge poor consistent with his diagnosis. This note covers elements not covered in my initial note of 06/17/2017. IMPRESSION: Unchanged from initial note. PLAN: Continue psychotropics mentioned in my initial note, review drug interactions, risk/benefit ratio favors no further change. MAN Koko GARCIA MD DR: MARGIE/nikolay JOB#: [id number] / [id number]
[2017-06-19 16:07] VITALS: BP 109/67
[2017-06-19] MEDS: MAGNESIUM OXIDE 400 MG TABLET PO SCH (16:56)
[2017-06-19] MEDS: ATORVASTATIN CALCIUM 20 MG TABLET PO SCH (19:25)
[2017-06-19] MEDS: MIRTAZAPINE 7.5 MG TABLET. PO SCH (19:25)
--- NOTE | 2017-06-19 20:38 | PDOC ---
Exam Jame Demential Exam: Jame Note: Please also refer to the separate dictated note~for this date of service dictated separately.~Patient seen individually. Discussed the patient with Nursing staff reviewed the chart.~Reviewed interim history and current functioning. Reviewed vital signs,~Labs/ Radiology~and current medications noted below. Continue current treatment with the changes noted in the dictated addendum note Assessment: Vital Signs: Vital Signs Date Time Temp Pulse Resp B/P (MAP) Pulse Ox O2 Delivery O2 Flow Rate FiO2 06/19/17 16:56 71 109/67 06/19/17 16:07 98.8 17 92 I&O Intake and Output 06/20/17 07:00 Intake Total 1320 ml Balance 1320 ml Intake Oral 1320 ml Labs: Laboratory Tests Test 06/19/17 07:22 Glucose (Fingerstick) 112 mg/dL (70-99) H Current Medications: Meds: Current Medications Ciprofloxacin (Cipro) 500 mg 1X ONCE PO Last administered on 06/07/17 23:22; Start 06/07/17 at 23:30; Stop 06/07/17 at 23:31; Status DC Info (FLU VACCINE per PROTOCOL) 1 ea 1X ONCE MC ; Start 06/08/17 at 00:15; Stop 06/08/17 at 00:16; Status UNV Acetaminophen (Tylenol) 650 mg PRN Q6HRS PRN PO PAIN / TEMP Last administered on 06/18/17 13:49; Start 06/08/17 at 00:15 Multi-Ingredient Ointment (Analgesic [place]) 1 angelika PRN QID PRN TP MUSCLE PAIN; Start 06/08/17 at 00:15 Al Hydroxide/Mg Hydroxide (Mylanta Plus Xs) 15 ml PRN AFTMEALHC PRN PO DYSPEPSIA; Start 06/08/17 at 00:15 Magnesium Hydroxide (Milk Of Magnesia) 2,400 mg PRN QHS PRN PO CONSTIPATION; Start 06/08/17 at 00:15 Divalproex Sodium (Depakote Er) 1,500 mg DAILY PO Last administered on 08:06; Start 06/08/17 at 09:00 Quetiapine Fumarate (SEROquel) 25 mg DAILY PO Last administered on 06/15/17 08 :26; Start 06/08/17 at 09:00; Stop 06/15/17 at 12:07; Status DC Quetiapine Fumarate (SEROquel) 50 mg QHS PO Last administered on 06/12/17 19: 49; Start 06/08/17 at 21:00; Stop 06/13/17 at 10:16; Status DC Acetaminophen (Tylenol) 500 mg TID PO Last administered on 06/19/17 19:25; Start 06/08/17 at 09:00 Aspirin (Aspirin Enteric Coated) 81 mg DAILY PO Last administered on 06/19/17 08:06; Start 06/08/17 at 09:00 Atorvastatin Calcium (Lipitor) 20 mg QHS PO Last administered on 06/19/17 19: 25; Start 06/08/17 at 21:00 Carvedilol (Coreg) 3.125 mg BIDWMEALS PO Last administered on 06/19/17 16:56; Start 06/08/17 at 08:00 Clopidogrel Bisulfate (Plavix) 75 mg DAILY PO Last administered on 06/19/17 08 :07; Start 06/08/17 at 09:00 Famotidine (Pepcid) 20 mg PRN DAILY PRN PO GERD; Start 06/08/17 at 00:15 Folic Acid (Folic Acid) 1 mg DAILY PO Last administered on 06/19/17 08:07; Start 06/08/17 at 09:00 Glipizide (Glucotrol) 5 mg DAILYWBKFT PO Last administered on 06/19/17 08:06; Start 06/08/17 at 08:00 Lisinopril (Prinivil) 2.5 mg DAILY PO Last administered on 06/19/17 08:05; Start 06/08/17 at 09:00 Metformin HCl (Glucophage) 1,000 mg BIDWMEALS PO Last administered on 16:56; Start 06/08/17 at 08:00 Influenza Virus Vaccine Quadrival (Fluarix Quad [id number] Syringe) 0.5 ml ONCE ONCE VAX IM Last administered on 06/08/17 14:04; Start 06/08/17 at 09:00; Stop 06/08/17 at 09:01; Status DC Clotrimazole (Lotrimin) 1 angelika BID TP Last administered on 06/19/17 19:26; Start 06/08/17 at 21:00 Escitalopram Oxalate (Lexapro) 5 mg DAILY PO Last administered on 06/11/17 09: 00; Start 06/11/17 at 09:00; Stop 06/11/17 at 18:23; Status DC Mirtazapine (Remeron) 7.5 mg QHS PO Last administered on 06/19/17 19:25; Start 06/10/17 at 21:00 Vitamin D (Vitamin D3) 50,000 unit WEEKLY PO Last administered on 06/18/17 08: 27; Start 06/11/17 at 09:00 Escitalopram Oxalate (Lexapro) 10 mg DAILY PO Last administered on 06/19/17 08 :06; Start 06/12/17 at 09:00; Stop 06/19/17 at 14:07; Status DC Nystatin (Nystop) 1 angelika BID TP Last administered on 06/19/17 19:25; Start at 13:00 Quetiapine Fumarate (SEROquel) 100 mg HS PO Last administered on 06/14/17 19: 46; Start 06/13/17 at 21:00; Stop 06/15/17 at 12:07; Status DC Magnesium Oxide (Magnesium Oxide) 400 mg DAILYBFRSUP PO Last administered on 16:56; Start 06/14/17 at 17:00 Risperidone (RisperDAL) 0.25 mg BID PO Last administered on 06/19/17 19:25; Start 06/15/17 at 21:00 Escitalopram Oxalate (Lexapro) 15 mg DAILY PO ; Start 06/20/17 at 09:00 Active Scripts Active Reported Famotidine 20 Mg Tablet 20 Mg PO PRN DAILY PRN Seroquel (Quetiapine Fumarate) 50 Mg Tablet 50 Mg PO QHS Atorvastatin Calcium 20 Mg Tablet 20 Mg PO QHS Depakote Er (Divalproex Sodium) 500 Mg Tab.er.24h 1,500 Mg PO DAILY Metformin Hcl 1,000 Mg Tablet 1,000 Mg PO BIDWMEALS Plavix (Clopidogrel Bisulfate) 75 Mg Tablet 75 Mg PO DAILY Seroquel (Quetiapine Fumarate) 25 Mg Tablet 25 Mg PO DAILY Lisinopril 2.5 Mg Tablet 2.5 Mg PO DAILY Glipizide 5 Mg Tablet 5 Mg PO DAILY Folic Acid 1 Mg Tablet 1 Mg PO DAILY Coreg (Carvedilol) 3.125 Mg Tablet 3.125 Mg PO BIDWMEALS Aspir-Low (Aspirin) 81 Mg Tablet.dr 81 Mg PO DAILY Acetaminophen 500 Mg Tablet 500 Mg PO TID Diagnosis: Problems: (1) Suicidal ideation (2) Acute adjustment disorder (3) Anxiety disorder (4) Impulse control disorder (5) Bipolar affective, mixed, sev w/ psych (6) Dementia, vascular, with depression (7) Dementia, vascular, 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
--- NOTE | 2017-06-20 02:56 | PN ---
DATE: 06/18/2017 This late entry 06/18/2017 covers elements not covered in my initial note of 06/18/2017. SUBJECTIVE: I met with the patient evening of 06/18/2017 both in the dining room and later in his room. He remains somewhat withdrawn, but otherwise confused, calm, cooperative, goes to the dining room for meals, seems a little paranoid at times. No agitation or aggression noted. REVIEW OF SYSTEMS: No CV, , pulmonary, eye, ENT system symptoms on review. Reliability poor. MENTAL STATUS EXAM: Oriented to himself. Insight, judgment, recent and remote memory, attention, concentration, fund of knowledge poor, consistent with his diagnosis mentioned in my initial note. PLAN: Continue current psychotropics, Depakote, Risperdal, Lexapro, Remeron at current dosage. Valproic acid level therapeutic at 67. Reviewed risk, benefit ratio and drug interactions. Ratio indicates no further changes, but we may need to increase the Lexapro and in fact, we will increase it to 15 mg a day starting 06/19/2017. MAN Koko GARCIA MD DR: MARGIE/nikolay JOB#: [id number] / [id number]
[2017-06-20 05:55] VITALS: BP 129/91
[2017-06-20] MEDS: metFORMIN 500 MG TABLET PO SCH ×2 (09:03→17:09)
[2017-06-20] MEDS: FOLIC ACID 1 MG TABLET PO SCH (09:04)
[2017-06-20] MEDS: ASPIRIN ENTERIC COATED 81 MG TABLET.DR. PO SCH (09:04)
[2017-06-20] MEDS: ACETAMINOPHEN 500 MG TABLET PO SCH ×3 (09:04→20:26)
[2017-06-20] MEDS: LISINOPRIL 2.5 MG TABLET PO SCH (09:04)
[2017-06-20] MEDS: glipiZIDE 5 MG TABLET PO SCH (09:04)
[2017-06-20] MEDS: risperiDONE 0.25 MG TABLET. PO SCH ×2 (09:04→20:25)
[2017-06-20] MEDS: CARVEDILOL 3.125 MG TABLET PO SCH ×2 (09:04→17:09)
[2017-06-20] MEDS: CLOPIDOGREL BISULFATE 75 MG TABLET PO SCH (09:04)
[2017-06-20] MEDS: DIVALPROEX ER 500 MG TAB.ER.24H PO SCH (09:05)
[2017-06-20] MEDS: CLOTRIMAZOLE 1% TOPICAL CREAM 30GM TUBE. TP SCH ×2 (09:42→20:26)
[2017-06-20] MEDS: NYSTATIN TOPICAL POWDER 15GM BOTTLE. TP SCH ×2 (09:42→20:26)
[2017-06-20] MEDS: ESCITALOPRAM 20 MG TABLET. PO SCH (09:42)
[2017-06-20 15:46] VITALS: BP 112/77
[2017-06-20] MEDS: MAGNESIUM OXIDE 400 MG TABLET PO SCH (17:09)
[2017-06-20] MEDS: ATORVASTATIN CALCIUM 20 MG TABLET PO SCH (20:25)
[2017-06-20] MEDS: MIRTAZAPINE 7.5 MG TABLET. PO SCH (20:25)
--- NOTE | 2017-06-20 20:36 | PDOC ---
Exam Jame Demential Exam: Jame Note: Please also refer to the separate dictated note~for this date of service dictated separately.~Patient seen individually. Discussed the patient with Nursing staff reviewed the chart.~Reviewed interim history and current functioning. Reviewed vital signs,~Labs/ Radiology~and current medications noted below. Continue current treatment with the changes noted in the dictated addendum note Assessment: Vital Signs: Vital Signs Date Time Temp Pulse Resp B/P (MAP) Pulse Ox O2 Delivery O2 Flow Rate FiO2 06/20/17 17:09 65 112/77 06/20/17 15:46 97.8 20 98 Room Air I&O Intake and Output 06/21/17 06:59 Intake Total 1260 ml Balance 1260 ml Intake Oral 1260 ml Labs: Laboratory Tests Test 06/20/17 08:15 Glucose (Fingerstick) 124 mg/dL (70-99) H Current Medications: Meds: Current Medications Ciprofloxacin (Cipro) 500 mg 1X ONCE PO Last administered on 06/07/17 23:22; Start 06/07/17 at 23:30; Stop 06/07/17 at 23:31; Status DC Info (FLU VACCINE per PROTOCOL) 1 ea 1X ONCE MC ; Start 06/08/17 at 00:15; Stop 06/08/17 at 00:16; Status UNV Acetaminophen (Tylenol) 650 mg PRN Q6HRS PRN PO PAIN / TEMP Last administered on 06/18/17 13:49; Start 06/08/17 at 00:15 Multi-Ingredient Ointment (Analgesic [place]) 1 angelika PRN QID PRN TP MUSCLE PAIN; Start 06/08/17 at 00:15 Al Hydroxide/Mg Hydroxide (Mylanta Plus Xs) 15 ml PRN AFTMEALHC PRN PO DYSPEPSIA; Start 06/08/17 at 00:15 Magnesium Hydroxide (Milk Of Magnesia) 2,400 mg PRN QHS PRN PO CONSTIPATION; Start 06/08/17 at 00:15 Divalproex Sodium (Depakote Er) 1,500 mg DAILY PO Last administered on 09:05; Start 06/08/17 at 09:00 Quetiapine Fumarate (SEROquel) 25 mg DAILY PO Last administered on 06/15/17 08 :26; Start 06/08/17 at 09:00; Stop 06/15/17 at 12:07; Status DC Quetiapine Fumarate (SEROquel) 50 mg QHS PO Last administered on 06/12/17 19: 49; Start 06/08/17 at 21:00; Stop 06/13/17 at 10:16; Status DC Acetaminophen (Tylenol) 500 mg TID PO Last administered on 06/20/17 20:26; Start 06/08/17 at 09:00 Aspirin (Aspirin Enteric Coated) 81 mg DAILY PO Last administered on 06/20/17 09:04; Start 06/08/17 at 09:00 Atorvastatin Calcium (Lipitor) 20 mg QHS PO Last administered on 06/20/17 20: 25; Start 06/08/17 at 21:00 Carvedilol (Coreg) 3.125 mg BIDWMEALS PO Last administered on 06/20/17 17:09; Start 06/08/17 at 08:00 Clopidogrel Bisulfate (Plavix) 75 mg DAILY PO Last administered on 06/20/17 09 :04; Start 06/08/17 at 09:00 Famotidine (Pepcid) 20 mg PRN DAILY PRN PO GERD; Start 06/08/17 at 00:15 Folic Acid (Folic Acid) 1 mg DAILY PO Last administered on 06/20/17 09:04; Start 06/08/17 at 09:00 Glipizide (Glucotrol) 5 mg DAILYWBKFT PO Last administered on 06/20/17 09:04; Start 06/08/17 at 08:00 Lisinopril (Prinivil) 2.5 mg DAILY PO Last administered on 06/20/17 09:04; Start 06/08/17 at 09:00 Metformin HCl (Glucophage) 1,000 mg BIDWMEALS PO Last administered on 17:09; Start 06/08/17 at 08:00 Influenza Virus Vaccine Quadrival (Fluarix Quad 6308-6126 Syringe) 0.5 ml ONCE ONCE VAX IM Last administered on 06/08/17 14:04; Start 06/08/17 at 09:00; Stop 06/08/17 at 09:01; Status DC Clotrimazole (Lotrimin) 1 angelika BID TP Last administered on 06/20/17 20:26; Start 06/08/17 at 21:00 Escitalopram Oxalate (Lexapro) 5 mg DAILY PO Last administered on 06/11/17 09: 00; Start 06/11/17 at 09:00; Stop 06/11/17 at 18:23; Status DC Mirtazapine (Remeron) 7.5 mg QHS PO Last administered on 06/20/17 20:25; Start 06/10/17 at 21:00 Vitamin D (Vitamin D3) 50,000 unit WEEKLY PO Last administered on 06/18/17 08: 27; Start 06/11/17 at 09:00 Escitalopram Oxalate (Lexapro) 10 mg DAILY PO Last administered on 06/19/17 08 :06; Start 06/12/17 at 09:00; Stop 06/19/17 at 14:07; Status DC Nystatin (Nystop) 1 angelika BID TP Last administered on 06/20/17 20:26; Start at 13:00 Quetiapine Fumarate (SEROquel) 100 mg HS PO Last administered on 06/14/17 19: 46; Start 06/13/17 at 21:00; Stop 06/15/17 at 12:07; Status DC Magnesium Oxide (Magnesium Oxide) 400 mg DAILYBFRSUP PO Last administered on 17:09; Start 06/14/17 at 17:00 Risperidone (RisperDAL) 0.25 mg BID PO Last administered on 06/20/17 20:25; Start 06/15/17 at 21:00 Escitalopram Oxalate (Lexapro) 15 mg DAILY PO Last administered on 06/20/17 09 :42; Start 06/20/17 at 09:00 Active Scripts Active Reported Famotidine 20 Mg Tablet 20 Mg PO PRN DAILY PRN Seroquel (Quetiapine Fumarate) 50 Mg Tablet 50 Mg PO QHS Atorvastatin Calcium 20 Mg Tablet 20 Mg PO QHS Depakote Er (Divalproex Sodium) 500 Mg Tab.er.24h 1,500 Mg PO DAILY Metformin Hcl 1,000 Mg Tablet 1,000 Mg PO BIDWMEALS Plavix (Clopidogrel Bisulfate) 75 Mg Tablet 75 Mg PO DAILY Seroquel (Quetiapine Fumarate) 25 Mg Tablet 25 Mg PO DAILY Lisinopril 2.5 Mg Tablet 2.5 Mg PO DAILY Glipizide 5 Mg Tablet 5 Mg PO DAILY Folic Acid 1 Mg Tablet 1 Mg PO DAILY Coreg (Carvedilol) 3.125 Mg Tablet 3.125 Mg PO BIDWMEALS Aspir-Low (Aspirin) 81 Mg Tablet.dr 81 Mg PO DAILY Acetaminophen 500 Mg Tablet 500 Mg PO TID Diagnosis: Problems: (1) Suicidal ideation (2) Acute adjustment disorder (3) Anxiety disorder (4) Impulse control disorder (5) Bipolar affective, mixed, sev w/ psych (6) Dementia, vascular, with depression (7) Dementia, vascular, 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
[2017-06-21 06:07] VITALS: BP 107/66
--- NOTE | 2017-06-21 06:32 | PN ---
DATE: 06/19/2017 This late entry for 06/19/2017 covers elements not covered in my initial note of 06/19/2017. SUBJECTIVE: I met with the patient evening of 06/19/2017. The patient remains withdrawn, but he is less paranoid. He had 2 visitors who came into visit him from out of town and he seemed to handle this very well, in fact was quite interactive, but then seems to remember them as well. He has not been aggressive. REVIEW OF SYSTEMS: No CV, , pulmonary, eye, ENT system symptoms on review. Reliability poor. MENTAL STATUS EXAM: Oriented to himself. Insight, judgment, recent and remote memory, attention, concentration, fund of knowledge poor, consistent with his diagnosis mentioned in my initial note. PLAN: Continue current psychotropics. Reviewed drug interactions. Risk/benefit ratio favors no further change. MAN Koko GARCIA MD DR: MARGIE/nikolay JOB#: [id number] / [id number]
[2017-06-21] MEDS: FOLIC ACID 1 MG TABLET PO SCH (08:59)
[2017-06-21] MEDS: CLOPIDOGREL BISULFATE 75 MG TABLET PO SCH (08:59)
[2017-06-21] MEDS: DIVALPROEX ER 500 MG TAB.ER.24H PO SCH (09:00)
[2017-06-21] MEDS: CLOTRIMAZOLE 1% TOPICAL CREAM 30GM TUBE. TP SCH ×2 (09:00→20:03)
[2017-06-21] MEDS: risperiDONE 0.25 MG TABLET. PO SCH ×2 (09:01→20:03)
[2017-06-21] MEDS: ACETAMINOPHEN 500 MG TABLET PO SCH ×3 (09:01→20:03)
[2017-06-21] MEDS: CARVEDILOL 3.125 MG TABLET PO SCH ×2 (09:01→17:14)
[2017-06-21] MEDS: metFORMIN 500 MG TABLET PO SCH ×2 (09:01→17:14)
[2017-06-21] MEDS: glipiZIDE 5 MG TABLET PO SCH (09:01)
[2017-06-21] MEDS: LISINOPRIL 2.5 MG TABLET PO SCH (09:01)
[2017-06-21] MEDS: NYSTATIN TOPICAL POWDER 15GM BOTTLE. TP SCH ×2 (09:01→20:03)
[2017-06-21] MEDS: ASPIRIN ENTERIC COATED 81 MG TABLET.DR. PO SCH (09:01)
[2017-06-21] MEDS: ESCITALOPRAM 20 MG TABLET. PO SCH (09:05)
[2017-06-21 10:36] LABS: CALCIUM 9.2 mg/dL (8.5-10.1); CREATININE 1.3 mg/dL (0.7-1.3); GFR 53.8; MAGNESIUM 1.7 mg/dL (1.8-2.4); POTASSIUM 5.5 mmol/L (3.5-5.1); TOTAL BILIRUBIN 0.4 mg/dL (0.2-1.0); TOTAL PROTEIN 5.9 g/dL (6.4-8.2)
[2017-06-21 10:39] LABS: BASO % 0 % (0-3); EOS # 0.2 x10^3/uL (0.0-0.7); EOS % 4 % (0-3); HEMATOCRIT 43.7 % (39.0-53.0); HEMOGLOBIN 14.8 g/dL (13.0-17.5); LYMPH # 1.5 x10^3/uL (1.0-4.8); LYMPH % 28 % (24-48); MEAN CORPUSCULAR HEMOGLOBIN 33 pg (25-35); MEAN CORPUSCULAR HGB CONC 34 g/dL (31-37); MEAN CORPUSCULAR VOLUME 98 fL (79-100); MONO # 0.5 x10^3/uL (0.0-1.1); MONO % 10 % (0-9); NEUT # 3.2 x10^3uL (1.8-7.7); NEUT % 58 % (31-73); PLATELET COUNT 99 x10^3/uL (140-400); RED BLOOD COUNT 4.45 x10^6/uL (4.30-5.70); RED CELL DISTRIBUTION WIDTH 14.6 % (11.5-14.5); WHITE BLOOD COUNT 5.6 x10^3/uL (4.0-11.0)
[2017-06-21 16:10] VITALS: BP 154/84
[2017-06-21] MEDS: MAGNESIUM OXIDE 400 MG TABLET PO SCH (17:14)
[2017-06-21] MEDS: MIRTAZAPINE 7.5 MG TABLET. PO SCH (20:03)
[2017-06-21] MEDS: ATORVASTATIN CALCIUM 20 MG TABLET PO SCH (20:03)
--- NOTE | 2017-06-21 22:04 | PDOC ---
Exam Jame Demential Exam: Jame Note: Please also refer to the separate dictated note~for this date of service dictated separately.~Patient seen individually. Discussed the patient with Nursing staff reviewed the chart.~Reviewed interim history and current functioning. Reviewed vital signs,~Labs/ Radiology~and current medications noted below. Continue current treatment with the changes noted in the dictated addendum note Assessment: Vital Signs: Vital Signs Date Time Temp Pulse Resp B/P (MAP) Pulse Ox O2 Delivery O2 Flow Rate FiO2 06/21/17 17:14 75 154/84 06/21/17 16:10 97.8 20 95 06/20/17 15:46 Room Air I&O Intake and Output 06/22/17 07:00 Intake Total 1420 ml Balance 1420 ml Intake Oral 1420 ml # Voids 2 Labs: Laboratory Tests Test 06/21/17 07:49 06/21/17 10:06 Glucose (Fingerstick) 111 mg/dL (70-99) H White Blood Count 5.6 x10^3/uL (4.0-11.0) Red Blood Count 4.45 x10^6/uL (4.30-5.70) Hemoglobin 14.8 g/dL (13.0-17.5) Hematocrit 43.7 % (39.0-53.0) Mean Corpuscular Volume 98 fL (79-100) Mean Corpuscular Hemoglobin 33 pg (25-35) Mean Corpuscular Hemoglobin Concent 34 g/dL (31-37) Red Cell Distribution Width 14.6 % (11.5-14.5) H Platelet Count 99 x10^3/uL (140-400) L Neutrophils (%) (Auto) 58 % (31-73) Lymphocytes (%) (Auto) 28 % (24-48) Monocytes (%) (Auto) 10 % (0-9) H Eosinophils (%) (Auto) 4 % (0-3) H Basophils (%) (Auto) 0 % (0-3) Neutrophils # (Auto) 3.2 x10^3uL (1.8-7.7) Lymphocytes # (Auto) 1.5 x10^3/uL (1.0-4.8) Monocytes # (Auto) 0.5 x10^3/uL (0.0-1.1) Eosinophils # (Auto) 0.2 x10^3/uL (0.0-0.7) Basophils # (Auto) 0.0 x10^3/uL (0.0-0.2) Sodium Level 143 mmol/L (136-145) Potassium Level 5.5 mmol/L (3.5-5.1) H Chloride Level 109 mmol/L (98-107) H Carbon Dioxide Level 28 mmol/L (21-32) Anion Gap 6 (6-14) Blood Urea Nitrogen 23 mg/dL (8-26) Creatinine 1.3 mg/dL (0.7-1.3) Estimated GFR (Cockcroft-Gault) 53.8 BUN/Creatinine Ratio 18 (6-20) Glucose Level 186 mg/dL (70-99) H Calcium Level 9.2 mg/dL (8.5-10.1) Magnesium Level 1.7 mg/dL (1.8-2.4) L Total Bilirubin 0.4 mg/dL (0.2-1.0) Aspartate Amino Transferase (AST) 19 U/L (15-37) Alanine Aminotransferase (ALT) 18 U/L (16-63) Alkaline Phosphatase 34 U/L (46-116) L Total Protein 5.9 g/dL (6.4-8.2) L Albumin 3.0 g/dL (3.4-5.0) L Albumin/Globulin Ratio 1.0 (1.0-1.7) Current Medications: Meds: Current Medications Ciprofloxacin (Cipro) 500 mg 1X ONCE PO Last administered on 06/07/17 23:22; Start 06/07/17 at 23:30; Stop 06/07/17 at 23:31; Status DC Info (FLU VACCINE per PROTOCOL) 1 ea 1X ONCE MC ; Start 06/08/17 at 00:15; Stop 06/08/17 at 00:16; Status UNV Acetaminophen (Tylenol) 650 mg PRN Q6HRS PRN PO PAIN / TEMP Last administered on 06/18/17 13:49; Start 06/08/17 at 00:15 Multi-Ingredient Ointment (Analgesic [place]) 1 angelika PRN QID PRN TP MUSCLE PAIN; Start 06/08/17 at 00:15 Al Hydroxide/Mg Hydroxide (Mylanta Plus Xs) 15 ml PRN AFTMEALHC PRN PO DYSPEPSIA; Start 06/08/17 at 00:15 Magnesium Hydroxide (Milk Of Magnesia) 2,400 mg PRN QHS PRN PO CONSTIPATION; Start 06/08/17 at 00:15 Divalproex Sodium (Depakote Er) 1,500 mg DAILY PO Last administered on 09:00; Start 06/08/17 at 09:00 Quetiapine Fumarate (SEROquel) 25 mg DAILY PO Last administered on 06/15/17 08 :26; Start 06/08/17 at 09:00; Stop 06/15/17 at 12:07; Status DC Quetiapine Fumarate (SEROquel) 50 mg QHS PO Last administered on 06/12/17 19: 49; Start 06/08/17 at 21:00; Stop 06/13/17 at 10:16; Status DC Acetaminophen (Tylenol) 500 mg TID PO Last administered on 06/21/17 20:03; Start 06/08/17 at 09:00 Aspirin (Aspirin Enteric Coated) 81 mg DAILY PO Last administered on 06/21/17 09:01; Start 06/08/17 at 09:00 Atorvastatin Calcium (Lipitor) 20 mg QHS PO Last administered on 06/21/17 20: 03; Start 06/08/17 at 21:00 Carvedilol (Coreg) 3.125 mg BIDWMEALS PO Last administered on 06/21/17 17:14; Start 06/08/17 at 08:00 Clopidogrel Bisulfate (Plavix) 75 mg DAILY PO Last administered on 06/21/17 08 :59; Start 06/08/17 at 09:00 Famotidine (Pepcid) 20 mg PRN DAILY PRN PO GERD; Start 06/08/17 at 00:15 Folic Acid (Folic Acid) 1 mg DAILY PO Last administered on 06/21/17 08:59; Start 06/08/17 at 09:00 Glipizide (Glucotrol) 5 mg DAILYWBKFT PO Last administered on 06/21/17 09:01; Start 06/08/17 at 08:00 Lisinopril (Prinivil) 2.5 mg DAILY PO Last administered on 06/21/17 09:01; Start 06/08/17 at 09:00 Metformin HCl (Glucophage) 1,000 mg BIDWMEALS PO Last administered on 17:14; Start 06/08/17 at 08:00 Influenza Virus Vaccine Quadrival (Fluarix Quad [id number] Syringe) 0.5 ml ONCE ONCE VAX IM Last administered on 06/08/17 14:04; Start 06/08/17 at 09:00; Stop 06/08/17 at 09:01; Status DC Clotrimazole (Lotrimin) 1 angelika BID TP Last administered on 06/21/17 20:03; Start 06/08/17 at 21:00 Escitalopram Oxalate (Lexapro) 5 mg DAILY PO Last administered on 06/11/17 09: 00; Start 06/11/17 at 09:00; Stop 06/11/17 at 18:23; Status DC Mirtazapine (Remeron) 7.5 mg QHS PO Last administered on 06/21/17 20:03; Start 06/10/17 at 21:00 Vitamin D (Vitamin D3) 50,000 unit WEEKLY PO Last administered on 06/18/17 08: 27; Start 06/11/17 at 09:00 Escitalopram Oxalate (Lexapro) 10 mg DAILY PO Last administered on 06/19/17 08 :06; Start 06/12/17 at 09:00; Stop 06/19/17 at 14:07; Status DC Nystatin (Nystop) 1 angelika BID TP Last administered on 06/21/17 20:03; Start at 13:00 Quetiapine Fumarate (SEROquel) 100 mg HS PO Last administered on 06/14/17 19: 46; Start 06/13/17 at 21:00; Stop 06/15/17 at 12:07; Status DC Magnesium Oxide (Magnesium Oxide) 400 mg DAILYBFRSUP PO Last administered on 17:14; Start 06/14/17 at 17:00 Risperidone (RisperDAL) 0.25 mg BID PO Last administered on 06/21/17 20:03; Start 06/15/17 at 21:00 Escitalopram Oxalate (Lexapro) 15 mg DAILY PO Last administered on 06/21/17 09 :05; Start 9/28/17 at 09:00 Active Scripts Active Reported Famotidine 20 Mg Tablet 20 Mg PO PRN DAILY PRN Seroquel (Quetiapine Fumarate) 50 Mg Tablet 50 Mg PO QHS Atorvastatin Calcium 20 Mg Tablet 20 Mg PO QHS Depakote Er (Divalproex Sodium) 500 Mg Tab.er.24h 1,500 Mg PO DAILY Metformin Hcl 1,000 Mg Tablet 1,000 Mg PO BIDWMEALS Plavix (Clopidogrel Bisulfate) 75 Mg Tablet 75 Mg PO DAILY Seroquel (Quetiapine Fumarate) 25 Mg Tablet 25 Mg PO DAILY Lisinopril 2.5 Mg Tablet 2.5 Mg PO DAILY Glipizide 5 Mg Tablet 5 Mg PO DAILY Folic Acid 1 Mg Tablet 1 Mg PO DAILY Coreg (Carvedilol) 3.125 Mg Tablet 3.125 Mg PO BIDWMEALS Aspir-Low (Aspirin) 81 Mg Tablet.dr 81 Mg PO DAILY Acetaminophen 500 Mg Tablet 500 Mg PO TID Diagnosis: Problems: (1) Suicidal ideation (2) Acute adjustment disorder (3) Anxiety disorder (4) Impulse control disorder (5) Bipolar affective, mixed, sev w/ psych (6) Dementia, vascular, with depression (7) Dementia, vascular, 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
--- NOTE | 2017-06-22 03:36 | PN ---
DATE: 06/20/2017 This late entry for 06/20/2017 covers elements not covered in my initial note of 06/20/2017. SUBJECTIVE: The patient staffed at a treatment team meeting with the entire team morning of 06/20/2017 along with the patient's son, Immanuel, attending the conference. We reviewed the patient's history at length, current medications, discharge plans, response to treatment, answer the son's questions, reviewed further information historically provided by the son. Son appeared pleased that we started Risperdal for the psychotic symptoms. The patient has been somewhat withdrawn, often responses monosyllabic as was evident as I met with him, "I'm fine." REVIEW OF SYSTEMS: No CV, , eye, ENT or pulmonary system symptoms on review. Reliability poor. MENTAL STATUS EXAMINATION: Oriented to himself. Insight, judgment, recent and remote memory, attention, concentration, fund of knowledge poor, consistent with his diagnosis, mentioned in my initial note. PLAN: Continue current psychotropics, Depakote, Risperdal, Lexapro, Remeron. Lexapro has been increased, adjust further as clinically indicated. Reviewed drug interactions, risk/benefit ratio favors no further change. KAREN GARCIA MD DR: MARGIE/nikolay JOB#: [id number] / [id number]
[2017-06-22 05:57] VITALS: BP 147/76
[2017-06-22 07:07] LABS: ALBUMIN/GLOBULIN RATIO 1.1 (1.0-1.7); CALCIUM 8.9 mg/dL (8.5-10.1); CREATININE 1.2 mg/dL (0.7-1.3); POTASSIUM 4.7 mmol/L (3.5-5.1); TOTAL BILIRUBIN 0.5 mg/dL (0.2-1.0); TOTAL PROTEIN 5.8 g/dL (6.4-8.2)
[2017-06-22] MEDS: DIVALPROEX ER 500 MG TAB.ER.24H PO SCH (09:27)
[2017-06-22] MEDS: LISINOPRIL 2.5 MG TABLET PO SCH (09:27)
[2017-06-22] MEDS: metFORMIN 500 MG TABLET PO SCH ×2 (09:28→17:36)
[2017-06-22] MEDS: FOLIC ACID 1 MG TABLET PO SCH (09:28)
[2017-06-22] MEDS: ACETAMINOPHEN 500 MG TABLET PO SCH ×3 (09:28→19:26)
[2017-06-22] MEDS: CLOPIDOGREL BISULFATE 75 MG TABLET PO SCH (09:28)
[2017-06-22] MEDS: glipiZIDE 5 MG TABLET PO SCH (09:28)
[2017-06-22] MEDS: ASPIRIN ENTERIC COATED 81 MG TABLET.DR. PO SCH (09:29)
[2017-06-22] MEDS: risperiDONE 0.25 MG TABLET. PO SCH ×2 (09:29→19:26)
[2017-06-22] MEDS: CARVEDILOL 3.125 MG TABLET PO SCH ×2 (09:29→17:37)
[2017-06-22] MEDS: ESCITALOPRAM 20 MG TABLET. PO SCH (09:31)
[2017-06-22] MEDS: CLOTRIMAZOLE 1% TOPICAL CREAM 30GM TUBE. TP SCH ×2 (09:36→19:27)
[2017-06-22] MEDS: NYSTATIN TOPICAL POWDER 15GM BOTTLE. TP SCH ×2 (09:36→19:27)
[2017-06-22 16:35] VITALS: BP 113/76
[2017-06-22] MEDS: MAGNESIUM OXIDE 400 MG TABLET PO SCH (17:36)
[2017-06-22] MEDS: MIRTAZAPINE 7.5 MG TABLET. PO SCH (19:26)
[2017-06-22] MEDS: ATORVASTATIN CALCIUM 20 MG TABLET PO SCH (19:26)
--- NOTE | 2017-06-22 22:54 | PDOC ---
Exam Jame Demential Exam: Jame Note: Please also refer to the separate dictated note~for this date of service dictated separately.~Patient seen individually. Discussed the patient with Nursing staff reviewed the chart.~Reviewed interim history and current functioning. Reviewed vital signs,~Labs/ Radiology~and current medications noted below. Continue current treatment with the changes noted in the dictated addendum note Assessment: Vital Signs: Vital Signs Date Time Temp Pulse Resp B/P (MAP) Pulse Ox O2 Delivery O2 Flow Rate FiO2 06/22/17 17:37 71 113/76 06/22/17 16:35 97.9 20 92 06/22/17 05:57 Room Air I&O Intake and Output 06/23/17 07:00 Intake Total 1560 ml Balance 1560 ml Intake Oral 1560 ml # Voids 2 Labs: Laboratory Tests Test 06/22/17 05:51 06/22/17 07:22 Sodium Level 143 mmol/L (136-145) Potassium Level 4.7 mmol/L (3.5-5.1) Chloride Level 109 mmol/L (98-107) H Carbon Dioxide Level 27 mmol/L (21-32) Anion Gap 7 (6-14) Blood Urea Nitrogen 22 mg/dL (8-26) Creatinine 1.2 mg/dL (0.7-1.3) Estimated GFR (Cockcroft-Gault) 59.0 BUN/Creatinine Ratio 18 (6-20) Glucose Level 108 mg/dL (70-99) H Calcium Level 8.9 mg/dL (8.5-10.1) Total Bilirubin 0.5 mg/dL (0.2-1.0) Aspartate Amino Transferase (AST) 15 U/L (15-37) Alanine Aminotransferase (ALT) 14 U/L (16-63) L Alkaline Phosphatase 33 U/L (46-116) L Total Protein 5.8 g/dL (6.4-8.2) L Albumin 3.0 g/dL (3.4-5.0) L Albumin/Globulin Ratio 1.1 (1.0-1.7) Glucose (Fingerstick) 100 mg/dL (70-99) H Current Medications: Meds: Current Medications Ciprofloxacin (Cipro) 500 mg 1X ONCE PO Last administered on 06/07/17t 23:22; Start 06/07/17 at 23:30; Stop 06/07/17 at 23:31; Status DC Info (FLU VACCINE per PROTOCOL) 1 ea 1X ONCE MC ; Start 06/08/17 at 00:15; Stop 06/08/17 at 00:16; Status UNV Acetaminophen (Tylenol) 650 mg PRN Q6HRS PRN PO PAIN / TEMP Last administered on 06/18/17 13:49; Start 06/08/17 at 00:15 Multi-Ingredient Ointment (Analgesic [place]) 1 angelika PRN QID PRN TP MUSCLE PAIN; Start 06/08/17 at 00:15 Al Hydroxide/Mg Hydroxide (Mylanta Plus Xs) 15 ml PRN AFTMEALHC PRN PO DYSPEPSIA; Start 06/08/17 at 00:15 Magnesium Hydroxide (Milk Of Magnesia) 2,400 mg PRN QHS PRN PO CONSTIPATION; Start 06/08/17 at 00:15 Divalproex Sodium (Depakote Er) 1,500 mg DAILY PO Last administered on 09:27; Start 06/08/17 at 09:00 Quetiapine Fumarate (SEROquel) 25 mg DAILY PO Last administered on 06/15/17 08 :26; Start 06/08/17 at 09:00; Stop 06/15/17 at 12:07; Status DC Quetiapine Fumarate (SEROquel) 50 mg QHS PO Last administered on 06/12/17 19: 49; Start 06/08/17 at 21:00; Stop 06/13/17 at 10:16; Status DC Acetaminophen (Tylenol) 500 mg TID PO Last administered on 06/22/17 19:26; Start 06/08/17 at 09:00 Aspirin (Aspirin Enteric Coated) 81 mg DAILY PO Last administered on 06/22/17 09:29; Start 06/08/17 at 09:00 Atorvastatin Calcium (Lipitor) 20 mg QHS PO Last administered on 06/22/17 19: 26; Start 06/08/17 at 21:00 Carvedilol (Coreg) 3.125 mg BIDWMEALS PO Last administered on 06/22/17 17:37; Start 06/08/17 at 08:00 Clopidogrel Bisulfate (Plavix) 75 mg DAILY PO Last administered on 06/22/17 09 :28; Start 06/08/17 at 09:00 Famotidine (Pepcid) 20 mg PRN DAILY PRN PO GERD; Start 06/08/17 at 00:15 Folic Acid (Folic Acid) 1 mg DAILY PO Last administered on 06/22/17 09:28; Start 06/08/17 at 09:00 Glipizide (Glucotrol) 5 mg DAILYWBKFT PO Last administered on 06/22/17 09:28; Start 06/08/17 at 08:00 Lisinopril (Prinivil) 2.5 mg DAILY PO Last administered on 06/22/17 09:27; Start 06/08/17 at 09:00 Metformin HCl (Glucophage) 1,000 mg BIDWMEALS PO Last administered on 17:36; Start 06/08/17 at 08:00 Influenza Virus Vaccine Quadrival (Fluarix Quad [id number] Syringe) 0.5 ml ONCE ONCE VAX IM Last administered on 06/08/17 14:04; Start 06/08/17 at 09:00; Stop 06/08/17 at 09:01; Status DC Clotrimazole (Lotrimin) 1 angelika BID TP Last administered on 06/22/17 19:27; Start 06/08/17 at 21:00 Escitalopram Oxalate (Lexapro) 5 mg DAILY PO Last administered on 06/11/17 09: 00; Start 06/11/17 at 09:00; Stop 06/11/17 at 18:23; Status DC Mirtazapine (Remeron) 7.5 mg QHS PO Last administered on 06/22/17 19:26; Start 06/10/17 at 21:00 Vitamin D (Vitamin D3) 50,000 unit WEEKLY PO Last administered on 06/18/17 08: 27; Start 06/11/17 at 09:00 Escitalopram Oxalate (Lexapro) 10 mg DAILY PO Last administered on 06/19/17 08 :06; Start 06/12/17 at 09:00; Stop 06/19/17 at 14:07; Status DC Nystatin (Nystop) 1 angelika BID TP Last administered on 06/22/17 19:27; Start at 13:00 Quetiapine Fumarate (SEROquel) 100 mg HS PO Last administered on 06/14/17 19: 46; Start 06/13/17 at 21:00; Stop 06/15/17 at 12:07; Status DC Magnesium Oxide (Magnesium Oxide) 400 mg DAILYBFRSUP PO Last administered on 17:36; Start 06/14/17 at 17:00 Risperidone (RisperDAL) 0.25 mg BID PO Last administered on 06/22/17 19:26; Start 06/15/17 at 21:00 Escitalopram Oxalate (Lexapro) 15 mg DAILY PO Last administered on 06/22/17 09 :31; Start 06/20/17 at 09:00 Active Scripts Active Reported Famotidine 20 Mg Tablet 20 Mg PO PRN DAILY PRN Seroquel (Quetiapine Fumarate) 50 Mg Tablet 50 Mg PO QHS Atorvastatin Calcium 20 Mg Tablet 20 Mg PO QHS Depakote Er (Divalproex Sodium) 500 Mg Tab.er.24h 1,500 Mg PO DAILY Metformin Hcl 1,000 Mg Tablet 1,000 Mg PO BIDWMEALS Plavix (Clopidogrel Bisulfate) 75 Mg Tablet 75 Mg PO DAILY Seroquel (Quetiapine Fumarate) 25 Mg Tablet 25 Mg PO DAILY Lisinopril 2.5 Mg Tablet 2.5 Mg PO DAILY Glipizide 5 Mg Tablet 5 Mg PO DAILY Folic Acid 1 Mg Tablet 1 Mg PO DAILY Coreg (Carvedilol) 3.125 Mg Tablet 3.125 Mg PO BIDWMEALS Aspir-Low (Aspirin) 81 Mg Tablet.dr 81 Mg PO DAILY Acetaminophen 500 Mg Tablet 500 Mg PO TID Diagnosis: Problems: (1) Suicidal ideation (2) Acute adjustment disorder (3) Anxiety disorder (4) Impulse control disorder (5) Bipolar affective, mixed, sev w/ psych (6) Dementia, vascular, with depression (7) Dementia, vascular, 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
--- NOTE | 2017-06-23 00:01 | PN ---
DATE: 06/21/2017 SUBJECTIVE: This late entry 06/21/2017 covers elements not covered in my initial note of 06/21/2017. I met with the patient in the evening of 06/21/2017. According to nursing staff, the patient remains withdrawn, confused, but did come out of the day room the previous evening, which is an improvement for him. He seems less paranoid. He has not been aggressive. Labs were unremarkable. REVIEW OF SYSTEMS: No CV, , pulmonary, eye, ENT system symptoms on review. Reliability poor. MENTAL STATUS EXAM: Oriented to himself. Insight, judgment, recent and remote memory, attention, concentration, fund of knowledge poor, consistent with his diagnosis mentioned in my initial note. PLAN: Continue current psychotropics. I do not see a need to increase the Risperdal beyond 0.25 mg b.i.d. just yet and valproic acid level is therapeutic at 67 on Depakote 1500 mg p.o. daily. He is also on Lexapro 15 mg a day, Remeron 7.5 at bedtime. If psychotic symptoms appear to persist, we may need to increase the Risperdal considering the drug interactions and risk/benefit ratio favors no changes yet. KAREN GARCIA MD DR: MARGIE/nikolay JOB#: [id number] / [id number]
[2017-06-23 05:51] VITALS: BP 119/70
[2017-06-23] MEDS: ESCITALOPRAM 20 MG TABLET. PO SCH (08:41)
[2017-06-23] MEDS: risperiDONE 0.25 MG TABLET. PO SCH ×2 (08:42→19:28)
[2017-06-23] MEDS: metFORMIN 500 MG TABLET PO SCH ×2 (08:42→17:46)
[2017-06-23] MEDS: CLOPIDOGREL BISULFATE 75 MG TABLET PO SCH (08:43)
[2017-06-23] MEDS: ACETAMINOPHEN 500 MG TABLET PO SCH ×3 (08:43→19:28)
[2017-06-23] MEDS: LISINOPRIL 2.5 MG TABLET PO SCH (08:43)
[2017-06-23] MEDS: FOLIC ACID 1 MG TABLET PO SCH (08:44)
[2017-06-23] MEDS: ASPIRIN ENTERIC COATED 81 MG TABLET.DR. PO SCH (08:44)
[2017-06-23] MEDS: glipiZIDE 5 MG TABLET PO SCH (08:44)
[2017-06-23] MEDS: NYSTATIN TOPICAL POWDER 15GM BOTTLE. TP SCH ×2 (08:45→19:29)
[2017-06-23] MEDS: CLOTRIMAZOLE 1% TOPICAL CREAM 30GM TUBE. TP SCH ×2 (08:45→19:29)
[2017-06-23] MEDS: DIVALPROEX ER 500 MG TAB.ER.24H PO SCH (08:45)
[2017-06-23] MEDS: CARVEDILOL 3.125 MG TABLET PO SCH ×2 (08:46→17:47)
[2017-06-23 16:29] VITALS: BP 120/75
[2017-06-23] MEDS: MAGNESIUM OXIDE 400 MG TABLET PO SCH (17:47)
[2017-06-23] MEDS: MIRTAZAPINE 7.5 MG TABLET. PO SCH (19:28)
[2017-06-23] MEDS: ATORVASTATIN CALCIUM 20 MG TABLET PO SCH (19:28)
--- NOTE | 2017-06-23 20:59 | PDOC ---
Exam Jame Demential Exam: Jame Note: Please also refer to the separate dictated note~for this date of service dictated separately.~Patient seen individually. Discussed the patient with Nursing staff reviewed the chart.~Reviewed interim history and current functioning. Reviewed vital signs,~Labs/ Radiology~and current medications noted below. Continue current treatment with the changes noted in the dictated addendum note Assessment: Vital Signs: Vital Signs Date Time Temp Pulse Resp B/P (MAP) Pulse Ox O2 Delivery O2 Flow Rate FiO2 06/23/17 17:47 70 120/75 06/23/17 16:29 97.1 16 97 06/23/17 05:51 Room Air I&O Intake and Output 06/24/17 07:00 Intake Total 1440 ml Balance 1440 ml Intake Oral 1440 ml Labs: Laboratory Tests Test 06/23/17 07:15 Glucose (Fingerstick) 104 mg/dL (70-99) H Current Medications: Meds: Current Medications Ciprofloxacin (Cipro) 500 mg 1X ONCE PO Last administered on 06/07/17 23:22; Start 06/07/17 at 23:30; Stop 06/07/17 at 23:31; Status DC Info (FLU VACCINE per PROTOCOL) 1 ea 1X ONCE MC ; Start 06/08/17 at 00:15; Stop 06/08/17 at 00:16; Status UNV Acetaminophen (Tylenol) 650 mg PRN Q6HRS PRN PO PAIN / TEMP Last administered on 06/18/17 13:49; Start 06/08/17 at 00:15 Multi-Ingredient Ointment (Analgesic [place]) 1 angelika PRN QID PRN TP MUSCLE PAIN; Start 06/08/17 at 00:15 Al Hydroxide/Mg Hydroxide (Mylanta Plus Xs) 15 ml PRN AFTMEALHC PRN PO DYSPEPSIA; Start 06/08/17 at 00:15 Magnesium Hydroxide (Milk Of Magnesia) 2,400 mg PRN QHS PRN PO CONSTIPATION; Start 06/08/17 at 00:15 Divalproex Sodium (Depakote Er) 1,500 mg DAILY PO Last administered on 08:45; Start 06/08/17 at 09:00 Quetiapine Fumarate (SEROquel) 25 mg DAILY PO Last administered on 06/15/17 08 :26; Start 06/08/17 at 09:00; Stop 06/15/17 at 12:07; Status DC Quetiapine Fumarate (SEROquel) 50 mg QHS PO Last administered on 06/12/17 19: 49; Start 06/08/17 at 21:00; Stop 06/13/17 at 10:16; Status DC Acetaminophen (Tylenol) 500 mg TID PO Last administered on 06/23/17 19:28; Start 06/08/17 at 09:00 Aspirin (Aspirin Enteric Coated) 81 mg DAILY PO Last administered on 06/23/17 08:44; Start 06/08/17 at 09:00 Atorvastatin Calcium (Lipitor) 20 mg QHS PO Last administered on 06/23/17 19: 28; Start 06/08/17 at 21:00 Carvedilol (Coreg) 3.125 mg BIDWMEALS PO Last administered on 06/23/17 17:47; Start 06/08/17 at 08:00 Clopidogrel Bisulfate (Plavix) 75 mg DAILY PO Last administered on 06/23/17 08 :43; Start 06/08/17 at 09:00 Famotidine (Pepcid) 20 mg PRN DAILY PRN PO GERD; Start 06/08/17 at 00:15 Folic Acid (Folic Acid) 1 mg DAILY PO Last administered on 06/23/17 08:44; Start 06/08/17 at 09:00 Glipizide (Glucotrol) 5 mg DAILYWBKFT PO Last administered on 06/23/17 08:44; Start 06/08/17 at 08:00 Lisinopril (Prinivil) 2.5 mg DAILY PO Last administered on 06/23/17 08:43; Start 06/08/17 at 09:00 Metformin HCl (Glucophage) 1,000 mg BIDWMEALS PO Last administered on 17:46; Start 06/08/17 at 08:00 Influenza Virus Vaccine Quadrival (Fluarix Quad [id number] Syringe) 0.5 ml ONCE ONCE VAX IM Last administered on 06/08/17 14:04; Start 06/08/17 at 09:00; Stop 06/08/17 at 09:01; Status DC Clotrimazole (Lotrimin) 1 angelika BID TP Last administered on 06/23/17 19:29; Start 06/08/17 at 21:00 Escitalopram Oxalate (Lexapro) 5 mg DAILY PO Last administered on 06/11/17 09: 00; Start 06/11/17 at 09:00; Stop 06/11/17 at 18:23; Status DC Mirtazapine (Remeron) 7.5 mg QHS PO Last administered on 06/23/17 19:28; Start 06/10/17 at 21:00 Vitamin D (Vitamin D3) 50,000 unit WEEKLY PO Last administered on 06/18/17 08: 27; Start 06/11/17 at 09:00 Escitalopram Oxalate (Lexapro) 10 mg DAILY PO Last administered on 06/19/17 08 :06; Start 06/12/17 at 09:00; Stop 06/19/17 at 14:07; Status DC Nystatin (Nystop) 1 angelika BID TP Last administered on 06/23/17 19:29; Start at 13:00 Quetiapine Fumarate (SEROquel) 100 mg HS PO Last administered on 06/14/17 19: 46; Start 06/13/17 at 21:00; Stop 06/15/17 at 12:07; Status DC Magnesium Oxide (Magnesium Oxide) 400 mg DAILYBFRSUP PO Last administered on 17:47; Start 06/14/17 at 17:00 Risperidone (RisperDAL) 0.25 mg BID PO Last administered on 06/23/17 19:28; Start 06/15/17 at 21:00 Escitalopram Oxalate (Lexapro) 15 mg DAILY PO Last administered on 06/23/17 08 :41; Start 06/20/17 at 09:00 Active Scripts Active Reported Famotidine 20 Mg Tablet 20 Mg PO PRN DAILY PRN Seroquel (Quetiapine Fumarate) 50 Mg Tablet 50 Mg PO QHS Atorvastatin Calcium 20 Mg Tablet 20 Mg PO QHS Depakote Er (Divalproex Sodium) 500 Mg Tab.er.24h 1,500 Mg PO DAILY Metformin Hcl 1,000 Mg Tablet 1,000 Mg PO BIDWMEALS Plavix (Clopidogrel Bisulfate) 75 Mg Tablet 75 Mg PO DAILY Seroquel (Quetiapine Fumarate) 25 Mg Tablet 25 Mg PO DAILY Lisinopril 2.5 Mg Tablet 2.5 Mg PO DAILY Glipizide 5 Mg Tablet 5 Mg PO DAILY Folic Acid 1 Mg Tablet 1 Mg PO DAILY Coreg (Carvedilol) 3.125 Mg Tablet 3.125 Mg PO BIDWMEALS Aspir-Low (Aspirin) 81 Mg Tablet.dr 81 Mg PO DAILY Acetaminophen 500 Mg Tablet 500 Mg PO TID Diagnosis: Problems: (1) Suicidal ideation (2) Acute adjustment disorder (3) Anxiety disorder (4) Impulse control disorder (5) Bipolar affective, mixed, sev w/ psych (6) Dementia, vascular, with depression (7) Dementia, vascular, 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
--- NOTE | 2017-06-24 01:46 | PN ---
DATE: 06/22/2017 This late entry 06/22/2017 covers elements not covered in my initial note of 06/22/2017. SUBJECTIVE: I met with the patient evening of 06/22/2017. Overall, the patient remains withdrawn, somewhat paranoid, confused, oriented to himself. REVIEW OF SYSTEMS: No CV, , pulmonary, eye, ENT system symptoms on review. Reliability poor. MENTAL STATUS EXAM: Oriented to himself. Insight, judgment, recent and remote memory, attention, concentration, fund of knowledge poor, consistent with his diagnosis. This note covers elements not covered in my initial note of 06/22/2017. PLAN: Continue current psychotropics, review drug interactions, risk/benefit ratio favors no further change at this time. MAN Koko GARCIA MD DR: MARGIE/nikolay JOB#: [id number] / [id number]
[2017-06-24 05:39] VITALS: BP 116/71
[2017-06-24] MEDS: DIVALPROEX ER 500 MG TAB.ER.24H PO SCH (08:29)
[2017-06-24] MEDS: CARVEDILOL 3.125 MG TABLET PO SCH ×2 (08:29→17:25)
[2017-06-24] MEDS: CLOTRIMAZOLE 1% TOPICAL CREAM 30GM TUBE. TP SCH ×2 (08:29→19:59)
[2017-06-24] MEDS: risperiDONE 0.25 MG TABLET. PO SCH ×2 (08:29→19:59)
[2017-06-24] MEDS: NYSTATIN TOPICAL POWDER 15GM BOTTLE. TP SCH ×2 (08:29→19:59)
[2017-06-24] MEDS: metFORMIN 500 MG TABLET PO SCH ×2 (08:29→17:25)
[2017-06-24] MEDS: CLOPIDOGREL BISULFATE 75 MG TABLET PO SCH (08:30)
[2017-06-24] MEDS: ASPIRIN ENTERIC COATED 81 MG TABLET.DR. PO SCH (08:30)
[2017-06-24] MEDS: ACETAMINOPHEN 500 MG TABLET PO SCH ×3 (08:30→19:59)
[2017-06-24] MEDS: glipiZIDE 5 MG TABLET PO SCH (08:30)
[2017-06-24] MEDS: FOLIC ACID 1 MG TABLET PO SCH (08:30)
[2017-06-24] MEDS: LISINOPRIL 2.5 MG TABLET PO SCH (08:30)
[2017-06-24] MEDS: ESCITALOPRAM 20 MG TABLET. PO SCH (08:31)
[2017-06-24 16:42] VITALS: BP 129/74
[2017-06-24] MEDS: MAGNESIUM OXIDE 400 MG TABLET PO SCH (17:25)
[2017-06-24] MEDS: MIRTAZAPINE 7.5 MG TABLET. PO SCH (19:59)
[2017-06-24] MEDS: ATORVASTATIN CALCIUM 20 MG TABLET PO SCH (19:59)
--- NOTE | 2017-06-24 20:54 | PDOC ---
Exam Jame Demential Exam: Jame Note: Please also refer to the separate dictated note~for this date of service dictated separately.~Patient seen individually. Discussed the patient with Nursing staff reviewed the chart.~Reviewed interim history and current functioning. Reviewed vital signs,~Labs/ Radiology~and current medications noted below. Continue current treatment with the changes noted in the dictated addendum note Assessment: Vital Signs: Vital Signs Date Time Temp Pulse Resp B/P (MAP) Pulse Ox O2 Delivery O2 Flow Rate FiO2 06/24/17 17:25 71 129/74 06/24/17 16:42 97.9 18 94 06/24/17 05:39 Room Air I&O Intake and Output 06/25/17 07:00 Intake Total 1200 ml Balance 1200 ml Intake Oral 1200 ml Labs: Laboratory Tests Test 06/24/17 07:16 Glucose (Fingerstick) 91 mg/dL (70-99) Current Medications: Meds: Current Medications Ciprofloxacin (Cipro) 500 mg 1X ONCE PO Last administered on 06/07/17 23:22; Start 06/07/17 at 23:30; Stop 06/07/17 at 23:31; Status DC Info (FLU VACCINE per PROTOCOL) 1 ea 1X ONCE MC ; Start 06/08/17 at 00:15; Stop 06/08/17 at 00:16; Status UNV Acetaminophen (Tylenol) 650 mg PRN Q6HRS PRN PO PAIN / TEMP Last administered on 06/18/17 13:49; Start 06/08/17 at 00:15 Multi-Ingredient Ointment (Analgesic [place]) 1 angelika PRN QID PRN TP MUSCLE PAIN; Start 06/08/17 at 00:15 Al Hydroxide/Mg Hydroxide (Mylanta Plus Xs) 15 ml PRN AFTMEALHC PRN PO DYSPEPSIA; Start 06/08/17 at 00:15 Magnesium Hydroxide (Milk Of Magnesia) 2,400 mg PRN QHS PRN PO CONSTIPATION; Start 06/08/17 at 00:15 Divalproex Sodium (Depakote Er) 1,500 mg DAILY PO Last administered on 08:29; Start 06/08/17 at 09:00 Quetiapine Fumarate (SEROquel) 25 mg DAILY PO Last administered on 06/15/17 08 :26; Start 06/08/17 at 09:00; Stop 06/15/17 at 12:07; Status DC Quetiapine Fumarate (SEROquel) 50 mg QHS PO Last administered on 06/12/17 19: 49; Start 06/08/17 at 21:00; Stop 06/13/17 at 10:16; Status DC Acetaminophen (Tylenol) 500 mg TID PO Last administered on 06/24/17 19:59; Start 06/08/17 at 09:00 Aspirin (Aspirin Enteric Coated) 81 mg DAILY PO Last administered on 06/24/17 08:30; Start 06/08/17 at 09:00 Atorvastatin Calcium (Lipitor) 20 mg QHS PO Last administered on 06/24/17 19: 59; Start 06/08/17 at 21:00 Carvedilol (Coreg) 3.125 mg BIDWMEALS PO Last administered on 06/24/17 17:25; Start 06/08/17 at 08:00 Clopidogrel Bisulfate (Plavix) 75 mg DAILY PO Last administered on 06/24/17 08 :30; Start 06/08/17 at 09:00 Famotidine (Pepcid) 20 mg PRN DAILY PRN PO GERD; Start 06/08/17 at 00:15 Folic Acid (Folic Acid) 1 mg DAILY PO Last administered on 06/24/17 08:30; Start 06/08/17 at 09:00 Glipizide (Glucotrol) 5 mg DAILYWBKFT PO Last administered on 06/24/17 08:30; Start 06/08/17 at 08:00 Lisinopril (Prinivil) 2.5 mg DAILY PO Last administered on 06/24/17 08:30; Start 06/08/17 at 09:00 Metformin HCl (Glucophage) 1,000 mg BIDWMEALS PO Last administered on 17:25; Start 06/08/17 at 08:00 Influenza Virus Vaccine Quadrival (Fluarix Quad [id number] Syringe) 0.5 ml ONCE ONCE VAX IM Last administered on 06/08/17 14:04; Start 06/08/17 at 09:00; Stop 06/08/17 at 09:01; Status DC Clotrimazole (Lotrimin) 1 angelika BID TP Last administered on 06/24/17 19:59; Start 06/08/17 at 21:00 Escitalopram Oxalate (Lexapro) 5 mg DAILY PO Last administered on 06/11/17 09: 00; Start 06/11/17 at 09:00; Stop 06/11/17 at 18:23; Status DC Mirtazapine (Remeron) 7.5 mg QHS PO Last administered on 06/24/17 19:59; Start 06/10/17 at 21:00 Vitamin D (Vitamin D3) 50,000 unit WEEKLY PO Last administered on 06/18/17 08: 27; Start 06/11/17 at 09:00 Escitalopram Oxalate (Lexapro) 10 mg DAILY PO Last administered on 06/19/17 08 :06; Start 06/12/17 at 09:00; Stop 06/19/17 at 14:07; Status DC Nystatin (Nystop) 1 angelika BID TP Last administered on 06/24/17 19:59; Start at 13:00 Quetiapine Fumarate (SEROquel) 100 mg HS PO Last administered on 06/14/17 19: 46; Start 06/13/17 at 21:00; Stop 06/15/17 at 12:07; Status DC Magnesium Oxide (Magnesium Oxide) 400 mg DAILYBFRSUP PO Last administered on 17:25; Start 06/14/17 at 17:00 Risperidone (RisperDAL) 0.25 mg BID PO Last administered on 06/24/17 19:59; Start 06/15/17 at 21:00 Escitalopram Oxalate (Lexapro) 15 mg DAILY PO Last administered on 06/24/17 08 :31; Start 06/20/17 at 09:00 Active Scripts Active Reported Famotidine 20 Mg Tablet 20 Mg PO PRN DAILY PRN Seroquel (Quetiapine Fumarate) 50 Mg Tablet 50 Mg PO QHS Atorvastatin Calcium 20 Mg Tablet 20 Mg PO QHS Depakote Er (Divalproex Sodium) 500 Mg Tab.er.24h 1,500 Mg PO DAILY Metformin Hcl 1,000 Mg Tablet 1,000 Mg PO BIDWMEALS Plavix (Clopidogrel Bisulfate) 75 Mg Tablet 75 Mg PO DAILY Seroquel (Quetiapine Fumarate) 25 Mg Tablet 25 Mg PO DAILY Lisinopril 2.5 Mg Tablet 2.5 Mg PO DAILY Glipizide 5 Mg Tablet 5 Mg PO DAILY Folic Acid 1 Mg Tablet 1 Mg PO DAILY Coreg (Carvedilol) 3.125 Mg Tablet 3.125 Mg PO BIDWMEALS Aspir-Low (Aspirin) 81 Mg Tablet.dr 81 Mg PO DAILY Acetaminophen 500 Mg Tablet 500 Mg PO TID Diagnosis: Problems: (1) Suicidal ideation (2) Acute adjustment disorder (3) Anxiety disorder (4) Impulse control disorder (5) Bipolar affective, mixed, sev w/ psych (6) Dementia, vascular, with depression (7) Dementia, vascular, 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
[2017-06-24] MEDS ORDERED: ACET325T9 PO (22:33)
[2017-06-24] MEDS ORDERED: CHOL500050 PO (22:39)
[2017-06-24] MEDS ORDERED: CLOT12CR2 TP (22:41)
[2017-06-24] MEDS ORDERED: ESCITALOPRAM OX10 MG PO (22:43)
[2017-06-24] MEDS ORDERED: MAG30ORA2 PO (22:46)
[2017-06-24] MEDS ORDERED: MAGN400O7 PO (22:48)
[2017-06-24] MEDS ORDERED: MAGN400T22 PO (22:50)
[2017-06-24] MEDS ORDERED: METH29OI TP (22:50)
[2017-06-24] MEDS ORDERED: MIRT7.5T8 PO (22:51)
[2017-06-24] MEDS ORDERED: NYST15PO9 TP (22:52)
[2017-06-24] MEDS ORDERED: RISP0.2519 PO (22:54)
--- NOTE | 2017-06-25 00:45 | PN ---
DATE: 06/23/2017 PSYCHIATRIC PROGRESS NOTE This is a late entry for 06/23/2017, covers elements not covered in my initial note of 06/23/2017. SUBJECTIVE: I met with the patient the evening of 06/23/2017. The patient slept 8-1/2 hours previous evening, refused to put on his pants in the morning, compliant with his medications, quite withdrawn, withdraws back to his room after meals, but not aggressive, appears less psychotic. REVIEW OF SYSTEMS: No CV, , pulmonary, eye, ENT system symptoms on review. MENTAL STATUS EXAM: Oriented to himself. Insight, judgment, recent and remote memory, attention, concentration, fund of knowledge poor, consistent with his diagnosis mentioned in my initial note. PLAN: Continue current psychotropics. Reviewed drug interactions. Risk/benefit ratio favors no further change. MAN Koko GARCIA MD DR: MARGIE/nikolay JOB#: [id number] / [id number]
[2017-06-25 05:43] VITALS: BP 138/78
[2017-06-25] MEDS: LISINOPRIL 2.5 MG TABLET PO SCH (07:51)
[2017-06-25] MEDS: FOLIC ACID 1 MG TABLET PO SCH (07:51)
[2017-06-25] MEDS: ASPIRIN ENTERIC COATED 81 MG TABLET.DR. PO SCH (07:51)
[2017-06-25] MEDS: glipiZIDE 5 MG TABLET PO SCH (07:51)
[2017-06-25] MEDS: risperiDONE 0.25 MG TABLET. PO SCH (07:51)
[2017-06-25] MEDS: CARVEDILOL 3.125 MG TABLET PO SCH (07:51)
[2017-06-25] MEDS: CHOLECALCIFEROL (VITAMIN D3) 50,000 UNIT CAPSULE PO SCH (07:51)
[2017-06-25] MEDS: metFORMIN 500 MG TABLET PO SCH (07:51)
[2017-06-25] MEDS: DIVALPROEX ER 500 MG TAB.ER.24H PO SCH (07:52)
[2017-06-25] MEDS: CLOPIDOGREL BISULFATE 75 MG TABLET PO SCH (07:52)
[2017-06-25] MEDS: ACETAMINOPHEN 500 MG TABLET PO SCH ×2 (07:52→14:31)
[2017-06-25] MEDS: ESCITALOPRAM 20 MG TABLET. PO SCH (07:54)
[2017-06-25] MEDS: CLOTRIMAZOLE 1% TOPICAL CREAM 30GM TUBE. TP SCH (08:03)
[2017-06-25] MEDS: NYSTATIN TOPICAL POWDER 15GM BOTTLE. TP SCH (08:03)
[2017-06-25 15:50] VITALS: BP 115/67
--- NOTE | 2017-06-25 18:20 | PN ---
DATE: 06/24/2017 This late entry 06/24/2017 covers elements not covered in my initial note of 06/24/2017. I met with the patient evening of 06/24/2017. The patient remains withdrawn, somewhat confused, but not aggressive and appears much less psychotic, a little more verbal. REVIEW OF SYSTEMS: No CV, , pulmonary, eye, ENT system symptoms on review. Reliability poor. MENTAL STATUS EXAM: Oriented to himself. Insight, judgment, recent and remote memory, attention, concentration, fund of knowledge poor, consistent with his diagnosis mentioned in my initial note. PLAN: Continue current psychotropics. Adjust further as clinically indicated. Reviewed drug interactions. Risk/benefit ratio favors no change. Perhaps transition to nursing facility 06/25/2017. MAN Koko GARCIA MD DR: MARGIE/nikolay JOB#: [id number] / [id number]
--- NOTE | 2017-06-25 18:27 | PDOC ---
Exam Jame Demential Exam: Jame Note: Please also refer to the separate dictated note~for this date of service dictated separately.~Patient seen individually. Discussed the patient with Nursing staff reviewed the chart.~Reviewed interim history and current functioning. Reviewed vital signs,~Labs/ Radiology~and current medications noted below. Continue current treatment with the changes noted in the dictated addendum note Assessment: Vital Signs: Vital Signs Date Time Temp Pulse Resp B/P (MAP) Pulse Ox O2 Delivery O2 Flow Rate FiO2 06/25/17 15:50 97.5 77 16 115/67 (83) 94 06/25/17 05:43 Room Air I&O Intake and Output 06/26/17 07:00 Intake Total 840 ml Balance 840 ml Intake Oral 840 ml Labs: Laboratory Tests Test 06/25/17 07:30 Glucose (Fingerstick) 85 mg/dL (70-99) Current Medications: Meds: Current Medications Ciprofloxacin (Cipro) 500 mg 1X ONCE PO Last administered on 06/07/17 23:22; Start 06/07/17 at 23:30; Stop 06/07/17 at 23:31; Status DC Info (FLU VACCINE per PROTOCOL) 1 ea 1X ONCE MC ; Start 06/08/17 at 00:15; Stop 06/08/17 at 00:16; Status UNV Acetaminophen (Tylenol) 650 mg PRN Q6HRS PRN PO PAIN / TEMP Last administered on 06/18/17t 13:49; Start 06/08/17 at 00:15; Stop 06/25/17 at 18:01; Status DC Multi-Ingredient Ointment (Analgesic [place]) 1 erlin PRN QID PRN TP MUSCLE PAIN; Start 06/08/17 at 00:15; Stop 06/25/17 at 18:01; Status DC Al Hydroxide/Mg Hydroxide (Mylanta Plus Xs) 15 ml PRN AFTMEALHC PRN PO DYSPEPSIA; Start 06/08/17 at 00:15; Stop 06/25/17 at 18:01; Status DC Magnesium Hydroxide (Milk Of Magnesia) 2,400 mg PRN QHS PRN PO CONSTIPATION; Start 06/08/17 at 00:15; Stop 06/25/17 at 18:01; Status DC Divalproex Sodium (Depakote Er) 1,500 mg DAILY PO Last administered on 07:52; Start 06/08/17 at 09:00; Stop 06/25/17 at 18:01; Status DC Quetiapine Fumarate (SEROquel) 25 mg DAILY PO Last administered on 06/15/17 08 :26; Start 06/08/17 at 09:00; Stop 06/15/17 at 12:07; Status DC Quetiapine Fumarate (SEROquel) 50 mg QHS PO Last administered on 06/12/17 19: 49; Start 06/08/17 at 21:00; Stop 06/13/17 at 10:16; Status DC Acetaminophen (Tylenol) 500 mg TID PO Last administered on 06/25/17 14:31; Start 06/08/17 at 09:00; Stop 06/25/17 at 18:01; Status DC Aspirin (Aspirin Enteric Coated) 81 mg DAILY PO Last administered on 06/25/17 07:51; Start 06/08/17 at 09:00; Stop 06/25/17 at 18:01; Status DC Atorvastatin Calcium (Lipitor) 20 mg QHS PO Last administered on 06/24/17 19: 59; Start 06/08/17 at 21:00; Stop 06/25/17 at 18:01; Status DC Carvedilol (Coreg) 3.125 mg BIDWMEALS PO Last administered on 06/25/17 07:51; Start 06/08/17 at 08:00; Stop 06/25/17 at 18:01; Status DC Clopidogrel Bisulfate (Plavix) 75 mg DAILY PO Last administered on 06/25/17 07 :52; Start 06/08/17 at 09:00; Stop 06/25/17 at 18:01; Status DC Famotidine (Pepcid) 20 mg PRN DAILY PRN PO GERD; Start 06/08/17 at 00:15; Stop 06/25/17 at 18:01; Status DC Folic Acid (Folic Acid) 1 mg DAILY PO Last administered on 06/25/17 07:51; Start 06/08/17 at 09:00; Stop 06/25/17 at 18:01; Status DC Glipizide (Glucotrol) 5 mg DAILYWBKFT PO Last administered on 10/3/17at 07:51; Start 06/08/17 at 08:00; Stop 06/25/17 at 18:01; Status DC Lisinopril (Prinivil) 2.5 mg DAILY PO Last administered on 06/25/17 07:51; Start 06/08/17 at 09:00; Stop 06/25/17 at 18:01; Status DC Metformin HCl (Glucophage) 1,000 mg BIDWMEALS PO Last administered on 07:51; Start 06/08/17 at 08:00; Stop 06/25/17 at 18:01; Status DC Influenza Virus Vaccine Quadrival (Fluarix Quad [id number] Syringe) 0.5 ml ONCE ONCE VAX IM Last administered on 06/08/17 14:04; Start 06/08/17 at 09:00; Stop 06/08/17 at 09:01; Status DC Clotrimazole (Lotrimin) 1 erlin BID TP Last administered on 06/25/17 08:03; Start 06/08/17 at 21:00; Stop 06/25/17 at 18:01; Status DC Escitalopram Oxalate (Lexapro) 5 mg DAILY PO Last administered on 06/11/17 09: 00; Start 06/11/17 at 09:00; Stop 06/11/17 at 18:23; Status DC Mirtazapine (Remeron) 7.5 mg QHS PO Last administered on 06/24/17 19:59; Start 06/10/17 at 21:00; Stop 06/25/17 at 18:01; Status DC Vitamin D (Vitamin D3) 50,000 unit WEEKLY PO Last administered on 06/25/17 07: 51; Start 06/11/17 at 09:00; Stop 06/25/17 at 18:01; Status DC Escitalopram Oxalate (Lexapro) 10 mg DAILY PO Last administered on 06/19/17 08 :06; Start 06/12/17 at 09:00; Stop 06/19/17 at 14:07; Status DC Nystatin (Nystop) 1 erlin BID TP Last administered on 06/25/17 08:03; Start at 13:00; Stop 06/25/17 at 18:01; Status DC Quetiapine Fumarate (SEROquel) 100 mg HS PO Last administered on 06/14/17 19: 46; Start 06/13/17 at 21:00; Stop 06/15/17 at 12:07; Status DC Magnesium Oxide (Magnesium Oxide) 400 mg DAILYBFRSUP PO Last administered on 17:25; Start 06/14/17 at 17:00; Stop 06/25/17 at 18:01; Status DC Risperidone (RisperDAL) 0.25 mg BID PO Last administered on 06/25/17 07:51; Start 06/15/17 at 21:00; Stop 06/25/17 at 18:01; Status DC Escitalopram Oxalate (Lexapro) 15 mg DAILY PO Last administered on 06/25/17 07 :54; Start 06/20/17 at 09:00; Stop 06/25/17 at 18:01; Status DC Active Scripts Active Reported Risperdal (Risperidone) 0.25 Mg Tablet 0.25 Mg PO BID Nystatin 15 Gm Powder 1 Erlin TP BID Mirtazapine 7.5 Mg Tablet 7.5 Mg PO QHS Analgesic [place] (Methyl Salicylate/Menthol) 28 Gm Oint...g. 1 Erlin TP PRN QID PRN Mag-Oxide (Magnesium Oxide) 400 Mg Tablet 400 Mg PO DAILYBFRSUP Milk Of Magnesia (Magnesium Hydroxide) 400 Mg/5 Ml Oral.susp 2,400 Mg PO PRN QHS PRN Mag-Al Plus Xs Suspension (Mag Hydrox/Al Hydrox/Simeth) 30 Ml Oral.susp 15 Ml PO PRN AFTMEALHC PRN Escitalopram Oxalate 10 Mg Tablet 15 Mg PO DAILY Lotrimin Af (Clotrimazole) 12 Gm Cream..g. 1 Erlin TP BID Vitamin D3 (Cholecalciferol (Vitamin D3)) 50,000 Unit Capsule 50,000 Unit PO QTU Tylenol (Acetaminophen) 325 Mg Tablet 650 Mg PO PRN Q6HRS PRN MDD 4000mg-All Sources Famotidine 20 Mg Tablet 20 Mg PO PRN DAILY PRN Atorvastatin Calcium 20 Mg Tablet 20 Mg PO QHS Depakote Er (Divalproex Sodium) 500 Mg Tab.er.24h 1,500 Mg PO DAILY Metformin Hcl 1,000 Mg Tablet 1,000 Mg PO BIDWMEALS Plavix (Clopidogrel Bisulfate) 75 Mg Tablet 75 Mg PO DAILY Lisinopril 2.5 Mg Tablet 2.5 Mg PO DAILY Glipizide 5 Mg Tablet 5 Mg PO DAILYWBKFT Folic Acid 1 Mg Tablet 1 Mg PO DAILY Coreg (Carvedilol) 3.125 Mg Tablet 3.125 Mg PO BIDWMEALS Aspir-Low (Aspirin) 81 Mg Tablet.dr 81 Mg PO DAILY Acetaminophen 500 Mg Tablet 500 Mg PO TID MDD 4000mg -All sources Diagnosis: Problems: (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
--- NOTE | 2017-06-26 19:26 | DS ---
DATE OF DISCHARGE: 06/25/2017 DISCHARGE SUMMARY/PSYCHIATRIC PROGRESS NOTE This is a late entry for 06/25/2017, covers elements not covered in my initial note of 06/25/2017. REASON FOR ADMISSION: Please refer to the admission history for details. Briefly, the patient is a 76-year-old male referred from [facility] by his primary care physician/psychiatrist on 06/07/2017 after the patient called his son and told him he was going to cut everyone up with a knife if he does not get his way. Reportedly, he has been very confused, but has had recent increased paranoia or delusions. He stole metal spoons and made of them at the [facility], hid them in his bed. Also, when he was still living at home, the neighbors had a restraining order against him for trying to run them over with a bulldozer according to the son. It was noted that the patient would appear fairly quiet and calm, but has a long history of very erratic, dangerous, disruptive behaviors, which have only worsened with his worsening dementia. SIGNIFICANT FINDINGS AND CLINICAL COURSE: Following admission, the patient was seen daily individually by myself, followed medically per Dr. Hinkle/Dr. Lou. He was oriented just to himself, very withdrawn, paranoid, and psychotic. Attempts were made to treat him on Seroquel, but he remained quite psychotic. This was changed to Risperdal and he seemed to respond to a combination of Depakote 1500 mg daily with a therapeutic level of 67, Risperdal 0.25 mg twice a day, Lexapro 15 mg a day, Remeron 7.5 mg at bedtime. REVIEW OF SYSTEMS: Prior to discharge on 06/25/2017, no CV, , pulmonary, eye, ENT system symptoms on review. Reliability poor. MENTAL STATUS EXAM: Oriented to himself. Insight, judgment, recent and remote memory, attention, concentration, fund of knowledge poor, consistent with his diagnosis. CONDITION ON DISCHARGE: Improved. He was much less psychotic, not aggressive, dangerous. FINAL DIAGNOSES: Major neurocognitive disorder, Alzheimer, vascular with depression, delusion, behavioral disturbance; anxiety disorder, unspecified; impulse control disorder, unspecified. Rest unchanged from admission. DISCHARGE MEDICATIONS: Please refer to the MRAD. DISCHARGE INSTRUCTIONS: Outpatient psychiatric and medical followup at the [facility]. MAN Koko GARCIA MD DR: MARGIE/nikolay JOB#: [id number] / [id number]
== END 2017-06-25 17:00 | disposition home or self-care (01) | DRG 884 ==
LOC: ER 21:16 → EEVIPCON 21:16 → GEROPSY 23:46
PROVIDERS: ADMIT Psychiatry & Neurology Psychiatry; ATTEND Psychiatry & Neurology Psychiatry
DX: F01.51 Vascular dementia, unspecified severity, with behavioral disturbance (principal); F02.81 Dementia in other diseases classified elsewhere, unspecified severity, with behavioral disturbance; G31.09 Other frontotemporal neurocognitive disorder; I11.9 Hypertensive heart disease without heart failure; R45.851 Suicidal ideations; F31.60 Bipolar disorder, current episode mixed, unspecified; Z66 Do not resuscitate; G30.9 Alzheimer's disease, unspecified; E78.5 Hyperlipidemia, unspecified; F22 Delusional disorders; F43.22 Adjustment disorder with anxiety; F63.9 Impulse disorder, unspecified; G40.909 Epilepsy, unspecified, not intractable, without status epilepticus; G47.33 Obstructive sleep apnea (adult) (pediatric); I25.10 Atherosclerotic heart disease of native coronary artery without angina pectoris; I73.9 Peripheral vascular disease, unspecified; K21.9 Gastro-esophageal reflux disease without esophagitis; R45.850 Homicidal ideations; Z79.899 Other long term (current) drug therapy; Z90.6 Acquired absence of other parts of urinary tract; Z85.51 Personal history of malignant neoplasm of bladder; Z87.820 Personal history of traumatic brain injury; Z95.0 Presence of cardiac pacemaker; Z88.1 Allergy status to other antibiotic agents; Z88.8 Allergy status to other drugs, medicaments and biological substances; Z85.9 Personal history of malignant neoplasm, unspecified
CPT/HCPCS: 36415; 80053; 80061; 80164; 81001; 82306; 82607; 82947; 83036; 83540; 83550; 83735; 84436; 84443; 84480; 84484; 85025; 86592; 86593; 87086; 90686; 93005; 99285-25